=== PATIENT | female | born 1960 | race Caucasian/White ===

== ENCOUNTER → 2019-12-30 06:40 | Outpatient (CLI) | payer MEDICARE, SELFPAY ==
--- NOTE | 2019-12-30 06:40 | CA_ITS ---
APPROVED REPORT Exam: Pharmacologic Technologist: Idalmis Awad Ht: 5 ft 4 in Wt: 161 lbs BSA: 1.78 m2 HR: 57 bpm BP: 127/67 mmHg Indications: CAD Medical History Medications: Omeprazole,,,,, Aspirin,,,,, Metoprolol,,,,, HCTZ,,,,, Albuterol,,,,, CloPIdogrel,,,,, Trazodone,,,,, Stress Test Details Test: LEXISCAN HR Resting HR: 65 bpm Max Heart Rate (APMHR): 161 bpm Max HR Achieved: 101 bpm Target HR (85% APMHR): 136 bpm % of APMHR: 62 Recovery HR: 86 bpm BP Resting BP: 127.0/67.0 mmHg Max BP: 127.0/67.0 mmHg Recovery BP: 121.0/66.0 mmHg ECG Clinical Exercise duration: 04:00 min Highest Stage Achieved: Stress ECG Conclusion Resting ECG: Sinus rhythm Lexiscan portion completed. Patient complained of shortness of breath during peak infusion. Symptoms: Shortness of Breath during peak infusion, resolved in recovery. No chest pain. Arrhythmias/Ectopy: No ectopy. ST-T Changes: Less than 1.[address] depression. Conclusion: Images to follow. Test Summary REST . . . . . . . Resting REST 03:24 . . 65 . 127/ 67 . . Stage 1 . . . . . . . Myoview Injected Stage 1 01:00 . . 95 . . . . Stage 2 01:00 . . 99 . 120/ 64 . . Stage 3 01:00 . . 97 . 111/ 63 . . Stage 4 01:00 . . 92 . 99/ 60 . Stop exercise at 04:00 RECOVERY 01:00 . . 91 . 94/ 58 . . RECOVERY 02:00 . . 87 . 94/ 58 . . RECOVERY 03:00 . . 89 . 113/ 62 . . RECOVERY 03:32 . . 86 . 121/ 66 . . Electronically signed by : Gallo Dunbar, 12/30/2019 19:07:10
--- NOTE | 2019-12-30 06:40 | NM_ITS ---
APPROVED REPORT Exam: Nuclear Stress Test Indication: Chest pain, SOB, HTN, CAD, Tobacco use, Family history Patient Location: Outpatient Stress Tech: Idalmis Awad NM Tech:Jaylene Barnett, ARRT, RT (R)(N) Ht: 5 ft 4 in Wt: 161 lbs Bra Size: 42C HR: 57 bpm BP: 127/67 mmHg BSA: 1.78 m2 BMI: 27.6 History: Chest pain, SOB, HTN, CAD, Tobacco use, Family history Procedure: Patient received a 0.4 mg of intravenous Lexiscan, resting heart rate 57 bpm, resting blood pressure 127/67 mmHg, with Lexiscan maximum heart rate achived was 99 bpm which is Less than 85 % of the maximum predicted heart rate and blood pressure was 120/64 mmHg. With Lexiscan, patient denied any complaint of chest pain. Electrocardiogram Resting electrocardiogram showed sinus rhythm, nonspecific ST-T changes, with Lexiscan there is less than 1.[address] segment depression noted from the baseline EKG. The EKG portion of the Lexiscan Myoview is nondiagnostic. Cardiac Stress and Resting SPECT Images: Cardiac Stress and Resting SPECT images were obtained using technetium 99m Myoview 30.4 mCi stress and 10.31 mCi at rest. Gated SPECT for analysis of segmental wall motion and calculation of ejection fraction also done. Cardiac stress and resting SPECT images show a mild fixed defect in the anterior wall with normal contractility gated SPECT is likely secondary to soft tissue attenuation, no reversible ischemia seen. Computer derived ejection fraction is over 65% with no regional wall motion abnormality, right ventricle is normal size and contractility. Conclusion: 1. The EKG portion of the Lexiscan Myoview is nondiagnostic. 2. No scintigraphic evidence of reversible ischemia seen, computer derived ejection fraction is over 65% with no regional wall motion abnormality, right ventricle is normal size and contractility. 3. Likely normal Lexiscan Myoview study. Electronically signed by : Gallo Dunbar, 12/30/2019 19:12:34
--- NOTE | 2019-12-30 06:40 | CA_ITS ---
APPROVED REPORT EXAM: Comprehensive 2D, Doppler, and color-flow Echocardiogram Pallet Stone Positioner: Mellisa Strauss RDCS Ht: 5 ft 4 in Wt: 160lbs BSA: 1.78 BP: 115/72 mmHg Indications: CAD CP HTN HLP 2D Dimensions LVOT 1.50 cm (M/F) 1.5-2.5 M-Mode Dimensions RVDd 2.72 cm (0.9-2.6) LVDd 5.05 cm (3.5-5.7) LVDs 3.35 cm (3.5-5.7) IVSd 0.55 cm (0.6-1.1) PWd 0.72 cm (0.6-1.1) EF (Teich) 62.10% FS 33.70% EDV (Teich) 121.00 mL ESV (Teich) 45.80 mL LV Diastology E/A Ratio 1.23 Mitral Valve MV A Velocity 55.00 (40-130 cm/s) Left Ventricle Left atrium is mildly enlarged, left ventricle is normal size, mild concentric left ventricular hypertrophy, visually estimated ejection fraction 55% with no regional wall motion abnormality, grade 1 diastolic dysfunction seen without tissue Doppler evidence of raise left atrial pressure. Right Ventricle Right atrium and right ventricular normal size and contractility. Aortic Valve Aortic valve is minimally thickened and fibrosed, there is no aortic stenosis or aortic insufficiency. Mitral Valve Mitral valve is grossly normal, there is mild mitral regurgitation. Tricuspid Valve Tricuspid valve is grossly normal, there is mild tricuspid regurgitation, tricuspid regurgitation jet velocity is inadequate for calculation of the right ventricular systolic pressure. Pulmonic Valve Pulmonic valve is poorly visualized. Great Vessels Aortic root is normal size. Pericardium No significant pericardial effusion noted. Conclusion 1. Mildly enlarged left atrium, normal left ventricular size, mild concentric left ventricular hypertrophy, visually estimated ejection fraction 55% with no regional wall motion abnormality, grade 1 diastolic dysfunction seen without tissue Doppler evidence of raise left atrial pressure. 2. Mild mitral and tricuspid regurgitation. 3. No significant pericardial effusion noted. Electronically signed by : Gallo Dunbar, 12/30/2019 20:53:15
--- NOTE | 2019-12-30 08:40 | HMH.ITSHM ---
Current Home Medications as stated by this patient Anette Ng or maintenance representative. []TRAZODONE ROSUVASTATIN OMEPRAZOLE METOPROLOL ASA HCTZ CLOPIDOGREL ALBUTEROL
== END ==
PROVIDERS: PCP Nurse Practitioner; Visit Provider Nurse Practitioner Family
DX: E78.2 Mixed hyperlipidemia (principal); I11.9 Hypertensive heart disease without heart failure; I25.10 Atherosclerotic heart disease of native coronary artery without angina pectoris; I73.9 Peripheral vascular disease, unspecified; R06.00 Dyspnea, unspecified; R07.89 Other chest pain; Z72.0 Tobacco use; Z82.49 Family history of ischemic heart disease and other diseases of the circulatory system
CPT/HCPCS: 78452; 93017; 93306; A9502; J2785

== ENCOUNTER 2020-01-06 09:15 | Day surgery (SDC) | payer MEDICARE, SELFPAY ==
[2020-01-06] VITALS (13 sets, daily range): BP systolic 106–179; BP diastolic 63–95; PULSE 57–71; RESP 16–18; TEMP 36.7; O2SAT 88–97; BMI 27.8
[2020-01-06 10:06] LABS: Chloride 104 mmol/L (98-107); Potassium 4.4 mmoL/L (3.5-5.1); Sodium 141 mmol/L (136-145)
[2020-01-06 10:09] LABS: Anion Gap 11.4 mEq/L (5-15); Blood Urea Nitrogen 27 mg/dl (7-17); Calcium 9.2 mg/dl (8.4-10.2); Carbon Dioxide 30 mmol/L (22.0-30.0); Creatinine Clearance Estimated 78 mL/min (50-200); Estimated Glomerular Filt Rate 64 ml/min (>60); GFR (African American) 78 ML/MIN (>60); Glucose 107 mg/dl (74-100)
[2020-01-06 10:11] LABS: Red Blood Count 5.12 M/mm3 (4.20-5.40); White Blood Count 5.2 K/mm3 (4.8-10.8)
[2020-01-06 10:12] LABS: Basophils # 0.1 K/mm3 (0-0.2); Basophils % 1.9 % (0.1-2.0); Eosinophils # 0.1 K/mm3 (0.0-0.4); Eosinophils % 1.8 % (0.1-12.0); Hematocrit 48.8 % (37.0-47.0); Hemoglobin 16.1 g/dL (12.2-16.2); Lymphocytes # 1.8 K/mm3 (0.7-4.5); Lymphocytes % 34.3 % (10-50); Mean Corpuscular Hemoglobin 31.5 pg (27.0-31.2); Mean Corpuscular Volume 95.4 fl (81-99); Mean Platelet Volume 7.4 fl (7.4-10.4); Monocytes # 0.6 K/mm3 (0.1-1.0); Monocytes % 11.5 % (1.7-9.3); Neutrophils # 2.6 K/mm3 (1.8-7.8); Neutrophils % 50.5 % (37.0-80.0); Platelet Count 187 K/mm3 (142-424); Red Cell Distribution Width 12.7 % (11.5-17.5)
[2020-01-06 10:31] LABS: Coronavirus 19 IgG Antibody Positive (Negative); Coronavirus 19 IgM Antibody Negative (Negative)
--- NOTE | 2020-01-06 11:00 | IR_ITS ---
APPROVED REPORT Patient Location: Outpatient PROCEDURES Left heart catheterization Left ventriculogram Selective coronary angiogram INDICATION Abnormal Myoview, Known coronary artery disease with stents to the proximal LAD, Angina pectoris Informed consent was obtained prior to the procedure. COMPLICATIONS none Estimated Blood Loss: less than 10 mls TECHNIQUE One percent lidocaine used to anesthetize the right anterior aspect of the wrist. The right radial artery was accessed via the Seldinger technique. A 6 Belarusian sheath was placed in the right radial artery. 2.5 mg of verapamil, 800 mcg of nitroglycerin, 1mg Lidocaine and 5000 U Heparin were given through the arterial sheath. The trap catheter was also used to perform left heart catheterization, left ventriculogram and selective coronary angiogram. At the end of the procedure the sheath was removed good hemostasis was achieved using Traclet band, patient was transferred to the postop holding area in stable condition. ANGIOGRAPHIC RESULTS The left main artery Normal The left anterior descending artery Has a stent in the proximal segment which is widely patent with mild 20 to 30% concentric in-stent restenosis. A small first diagonal artery is jailed. This diagonal artery is 1 mm in diameter and has an ostial 80% stenosis The circumflex artery Nondominant with mild proximal and mid vessel 20% stenoses The right coronary artery Is a dominant vessel has 20 to 30% stenoses throughout its proximal mid and distal course The EDWARDS ventriculogram reveals Normal 65% The left ventricular end-diastolic pressure 10 mmHg IMPRESSION Coronary disease as described above Jailed first diagonal artery which is too small for percutaneous intervention and very unlikely to be producing the angina Normal ejection fraction Normal left ventricular end-diastolic pressure PLAN 1. Medical management Electronically signed by : Lizandro yAala, 01/06/2020 11:39:39
== END 2020-01-06 14:42 | disposition home or self-care (01) ==
LOC: CATHLAB 09:17
PROVIDERS: PCP Nurse Practitioner; Visit Provider Internal Medicine
DX: I25.118 Atherosclerotic heart disease of native coronary artery with other forms of angina pectoris (principal); I10 Essential (primary) hypertension; Z95.5 Presence of coronary angioplasty implant and graft; Z72.0 Tobacco use; E78.5 Hyperlipidemia, unspecified; J44.9 Chronic obstructive pulmonary disease, unspecified; Z79.02 Long term (current) use of antithrombotics/antiplatelets; Z79.82 Long term (current) use of aspirin
CPT/HCPCS: 80048; 85025; 86328; 93458; 99152; C1725; C1769; J1644; Q9967

== ENCOUNTER 2021-06-24 07:15 | Outpatient (CLI) | payer MEDICARE, SELFPAY ==
--- NOTE | 2021-06-24 | CA_ITS ---
APPROVED REPORT Exam: Pharmacologic Technologist: Nancy Rojo, Ht: 5 ft 4 in Wt: 218 lbs BSA: 2.03 m2 HR: 70 bpm BP: 101/67 mmHg Rhythm: NSR, PVCs, NS ST abns inferiorly Medical History Medical History: HTN Medications: Omeprazole,,,,, Metoprolol,,,,, Asa,,,,, Trazadone,,,,, HCTZ,,,,, Crestor,,,,, Albuterol,,,,, Plavix,,,,, Cardiac Risk Factors: HTN Stress Test Details Test: LEXISCAN HR Resting HR: 73 bpm Max Heart Rate (APMHR): 160.237662 bpm Max HR Achieved: 102 bpm Target HR (85% APMHR): 136.160425 bpm % of APMHR: 63.75 Recovery HR: 88 bpm BP Resting BP: 101/67 mmHg Max BP: 125/65 mmHg Recovery BP: 123.0/64.0 mmHg ECG Resting ECG: NSR, PVCs, NS ST abns inferiorly Clinical Exercise duration: 04:01 min Highest Stage Achieved: Stress ECG Conclusion During lexiscan pt experinced SOA, mild nausea, ZACARIAS. No CP noted. Occasional PVC. Compared to baseline there are no significant changes. Non diagnostic lexiscan stress. Myoview images reported separately. Electronically signed by : Gallo Dunbar MD 06/25/2021 10:15:38
--- NOTE | 2021-06-24 07:16 | CA_ITS ---
APPROVED REPORT EXAM: Comprehensive 2D, Doppler, and color-flow Echocardiogram Chairman: EMELINA Wilson, RVS Ht: 5 ft 2 in Wt: 218lbs BSA: 1.98 BP: 115/72 mmHg Indications: CAD-stents,Smoker, Edema,SOB,SALVADOR,Fatigue, Syncope,Obesity,Abn EKG Echo Enhancing Agent Comments: TDS: Poor acoustics throughout exam. 2D Dimensions IVSd 1.15 cm LVEF (Visual) 86.40 % PWd 0.90 cm LA Volume 34.10 mL LVDd 3.89 cm LA Volume Index 17.20 mL/m2 (M/F) 16-34 LVDs 1.74 cm Aortic Root 2.47 cm Left Atrium 2.44 cm LVOT 1.96 cm (M/F) 1.5-2.5 M-Mode Dimensions LA Diam 2.91 cm (1.9-4.0) Ao Diam 2.66 cm (2.0-3.7) EPSs 0.81 cm TAPSE 2.26 (<1.7) LV Diastology E Decel Time 227.00 (160-240 msec) E/A Ratio 1.46 MED E' 6.20 (< 7 cm/sec) MED A' 11.40 cm/s E'/MED E' Ratio 13.55 (>14) LAT E' 8.90 (<10 cm/sec) LAT A' 10.50 cm/s E/LAT E' Ratio 9.44 (>14) Aortic Valve LVOT Max 116.00 (70-110 cm/s) LVOT VTI 23.82 cm AoV Peak Asher. 154.00 (50-130 cm/s) AO Peak GR. 9.50 mmHg AO Mean GR. 5.60 (<5 mmHg) AO VTI 36.67 (18-25 cm) KEV (VTI) 1.96 (2.5-4.5 cm2) Mitral Valve MV A Velocity 58.00 (40-130 cm/s) E/A Ratio 1.46 MV Decel. Time 227.00 (160-240 ms) MV Mean Gr. 1.50 (<2mmHg) MV PHT 67.00 ms Pulmonary Valve PV Peak Velocity 83.00 (50-150 cm/s) Tricuspid Valve TR P. Velocity 192.00 cm/s RAP Estimate 10.00 mmHg RVSP 24.80 mmHg Left Ventricle Left atrium normal size, left ventricle is normal size, there is no concentric left ventricular hypertrophy, visually estimated ejection fraction 55% with no regional wall motion abnormality, diastolic parameters are within normal range. Right Ventricle Right atrium and right ventricle are normal size and contractility. Aortic Valve Aortic valve is minimally thickened and fibrosed, there is no aortic stenosis or aortic insufficiency. Mitral Valve Mitral valve grossly normal, there is trace mitral regurgitation. Tricuspid Valve Tricuspid valve is grossly normal, there is trace tricuspid regurgitation. Tricuspid regurgitation jet velocity is inadequate for calculation of the right ventricular systolic pressure. Pulmonic Valve Pulmonic valve is poorly visualized. Great Vessels Aortic root is normal size. Inferior vena cava is poorly visualized. Pericardium No significant pericardial effusion noted. Conclusion 1. Normal left ventricular size, preserved left ventricular systolic function, visually estimated ejection fraction 55% with no regional wall motion abnormality, diastolic parameters are within normal range. 2. Trace mitral and tricuspid regurgitation. 3. No significant pericardial effusion. 5. Inferior vena cava is poorly visualized. Electronically signed by : Gallo Dunbar MD 06/25/2021 13:02:35
--- NOTE | 2021-06-24 07:34 | NM_ITS ---
APPROVED REPORT Exam: Nuclear Stress Test Indication: chest pain..short of breath Patient Location: Outpatient Stress Tech: Nancy MCKEON Tech:JUAN Pal RT(R)(N) Ht: 5 ft 4 in Wt: 195 lbs Bra Size: 3x HR: 70 bpm BP: 101/67 mmHg BSA: 1.94 m2 BMI: 33.4 History: chest pain..short of breath Procedure: Patient received a 0.4 mg of intravenous Lexiscan, resting heart rate 70 bpm, resting blood pressure 101/67 mmHg, with Lexiscan maximum heart rate achived was 102 bpm which is Less than 85 % of the maximum predicted heart rate and blood pressure was 109/62 mmHg. With Lexiscan, patient denied any complaint of chest pain. Electrocardiogram Resting electrocardiogram shows sinus rhythm, with Lexiscan there is less than 1.[address] segment depression noted from the baseline EKG. The EKG portion of the Lexiscan is nondiagnostic. Cardiac Stress and Resting SPECT Images: Cardiac Stress and Resting SPECT images were obtained using technetium 99m Myoview 32.7 mCi stress and 10.40 mCi at rest. Gated SPECT for analysis of segmental wall motion and calculation of the ejection fraction also done. Prone images were also obtained. Cardiac stress and resting SPECT images show a mild reversible defect in the anterior wall however the perfusion at the apex being normal is likely secondary to soft tissue attenuation, this study is technically limited due to patient's body habitus however there is transient ischemic dilatation of the left ventricle seen raising the concerns for presence of underlying ischemic heart disease or balanced ischemia. Computer derived ejection fraction is 63% with no regional wall motion abnormality, right ventricle is mildly enlarged with normal contractility. Conclusion: 1. The EKG portion of the Lexiscan is nondiagnostic. 2. Scintigraphic evidence of mild anterior wall reversibility likely secondary to soft tissue attenuation however there is transient ischemic dilatation of the left ventricle seen raising the concerns of presence of underlying ischemic heart disease and balanced ischemia. Compared to ejection fraction is 63% with no regional wall motion abnormality, right ventricle is mildly enlarged with normal contractility. 3. Likely abnormal Lexiscan Myoview study. Electronically signed by : Gallo Dunbar MD 06/25/2021 10:18:49
--- NOTE | 2021-06-24 10:20 | US_ITS ---
FINAL REPORT CLINICAL HISTORY: CLAUDICATION/REST PAIN BILATERAL,SMOKER,HTN FINDINGS: ANKLE-BRACHIAL PRESSURE INDICES Pressure indices are as follows: RIGHT LOWER EXTREMITY: Ankle-brachial pressure index: 0.99 Comments: Normal LEFT LOWER EXTREMITY: Ankle-brachial pressure index: 1.02 Comments: Normal CONCLUSION: No evidence of significant obstructive peripheral vascular disease of the lower extremities Reviewed, Interpreted and Dictated by Pilo Barnard III, MD Transcribed by Emmie Draper Authenticated by Pilo Barnard III, MD on 06/24/2021 11:18:33 AM [facility]
[2021-06-24 10:52] VITALS: BMI 36.3
[2021-06-24 11:15] VITALS: BP 147/97; PULSE 90; RESP 20; O2SAT 94; BMI 37.4
[2021-06-24 12:08] VITALS: BP 144/84; PULSE 75; RESP 20; O2SAT 95
[2021-06-24 12:16] VITALS: BP 145/86; PULSE 80; O2SAT 95
--- NOTE | 2021-06-24 15:04 | HMH.LOOP ---
[facility] Loop Recorder Date: 06/24/21 Time: 12:05 Procedure Performed:: Implantation of loop recorder Indication:: Syncope Technique:: Patient was brought to the cardiac Gravel Machine Operator. After informed consent obtained, 1% lidocaine with epinephrine was used to anesthetize the site along the left anterior aspect of the chest near the sternal border. Using the preformed scalpel, an incision was made and using the supplied preloaded apparatus, the loop recorder was placed subcutaneously without difficulty. Following the deployment of the loop recorder interrogation of the device was performed to ensure appropriate voltage was being detected. Once this was verified, Steri-Strips were placed over the incision and the patient was prepped to discharge home. Patient tolerated the procedure well with minimal discomfort. Impression:: Successful implantation of loop recorder Serial Number:: [employer] [id number] Serial #[id number] Plan:: Routine postop care This op note was dictated by Zoë Centeno APRN, MATERIAL ASSISTANT?C for Dr. Lucy MD who was the implanting provider.
== END 2021-06-24 12:36 | disposition home or self-care (01) ==
PROVIDERS: Internal Medicine; PCP Nurse Practitioner; Visit Provider Nurse Practitioner Family
DX: E78.2 Mixed hyperlipidemia (principal); I11.9 Hypertensive heart disease without heart failure; I25.118 Atherosclerotic heart disease of native coronary artery with other forms of angina pectoris; I73.9 Peripheral vascular disease, unspecified; R06.00 Dyspnea, unspecified; R55 Syncope and collapse; Z72.0 Tobacco use
CPT/HCPCS: 78452; 93017; 93306; 93923; A9502; J2785

== ENCOUNTER 2021-07-07 07:24 | Day surgery (SDC) | payer MEDICARE, SELFPAY ==
[2021-07-07] VITALS (13 sets, daily range): BP systolic 118–158; BP diastolic 51–84; PULSE 62–89; RESP 16–20; TEMP 36.1; O2SAT 91–100; BMI 36.6
--- NOTE | 2021-07-07 07:05 | IR_ITS ---
APPROVED REPORT Patient Location: Outpatient Full Time Staff Interpreter: JUAN Mauricio RT (R) PROCEDURES Left heart catheterization Left ventriculogram Selective coronary angiogram INDICATION Abnormal Myoview, Angina pectoris Informed consent was obtained prior to the procedure. COMPLICATIONS None Estimated Blood Loss: Less than 10 mls TECHNIQUE One percent lidocaine used to anesthetize the right anterior aspect of the wrist. The right radial artery was accessed via the Seldinger technique. A 6 Amharic sheath was placed in the right radial artery. 2.5 mg of verapamil, 800 mcg of nitroglycerin, 1mg Lidocaine and 5000 U Heparin were given through the arterial sheath. The papa catheter was also used to perform left heart catheterization, left ventriculogram and selective coronary angiogram. At the end of the procedure the sheath was removed good hemostasis was achieved using Traclet band, patient was transferred to the postop holding area in stable condition. ANGIOGRAPHIC RESULTS The left main artery Normal The left anterior descending artery Has a stent in the proximal segment which is widely patent free of in-stent restenosis with excellent proximal distal transitioning. The remaining LAD has mild 10% luminal irregularities The circumflex artery Is a nondominant yet still large vessel with a proximal eccentric 20 to 30% stenosis with mild 10% stenosis and a first obtuse marginal artery The right coronary artery Is a dominant vessel and has an ostial 40% stenosis followed by proximal 10 to 20% stenosis with a mid vessel 30% stenosis. The EDWARDS ventriculogram reveals Hyperdynamic at 75% The left ventricular end-diastolic pressure Severely elevated at 30 mmHg IMPRESSION Coronary artery disease as described above Moderate ostial dominant right coronary disease which is unlikely to be producing patient's symptoms Etiology of symptoms most likely stems from hypertensive heart disease with decompensated diastolic dysfunction Hyperdynamic ventricle PLAN 1. Ongoing risk factor modification and treatment for ischemic heart disease 2. Treatment of diastolic dysfunction. Hydrochlorothiazide will be discontinued and Lasix 40 mg daily plus spironolactone 100 mg daily will be given to decrease LVEDP 3. Recommend sleep study 4. Patient may benefit from verapamil to decrease contractility and improve associated symptoms Electronically signed by : Lizandro Ayala MD 07/07/2021 09:51:48
[2021-07-07 07:57] LABS: Basophils # 0.2 K/mm3 (0-0.2); Basophils % 2.6 % (0.1-2.0); Eosinophils # 0.1 K/mm3 (0.0-0.4); Eosinophils % 1.7 % (0.1-12.0); Hematocrit 51.4 % (37.0-47.0); Hemoglobin 16.8 g/dL (12.2-16.2); Lymphocytes # 2.1 K/mm3 (0.7-4.5); Lymphocytes % 34.6 % (10-50); Mean Corpuscular HGB Conc 32.7 g/dL (31.8-35.4); Mean Corpuscular Hemoglobin 30.8 pg (27.0-31.2); Mean Corpuscular Volume 94.1 fl (81-99); Mean Platelet Volume 8.7 fl (7.4-10.4); Monocytes # 0.6 K/mm3 (0.1-1.0); Neutrophils # 3.1 K/mm3 (1.8-7.8); Neutrophils % 51.1 % (37.0-80.0); Platelet Count 251 K/mm3 (142-424); Red Blood Count 5.46 M/mm3 (4.20-5.40); Red Cell Distribution Width 13.8 % (11.5-17.5)
[2021-07-07 08:12] LABS: Anion Gap 10.1 mEq/L (5-15); Blood Urea Nitrogen 17 mg/dl (7-17); Carbon Dioxide 29 mmol/L (22.0-30.0); Chloride 105 mmol/L (98-107); Creatinine Clearance Estimated 91 mL/min (50-200); Estimated Glomerular Filt Rate 57 ml/min (>60); GFR (African American) 68 ML/MIN (>60); Glucose 124 mg/dl (74-100); Potassium 4.1 mmoL/L (3.5-5.1); Sodium 140 mmol/L (136-145)
== END 2021-07-07 12:52 | disposition home or self-care (01) ==
LOC: CATHLAB 07:26
PROVIDERS: PCP Family Medicine; Visit Provider Internal Medicine
DX: E78.2 Mixed hyperlipidemia (principal); I11.9 Hypertensive heart disease without heart failure; I25.118 Atherosclerotic heart disease of native coronary artery with other forms of angina pectoris; I73.9 Peripheral vascular disease, unspecified; R55 Syncope and collapse; R94.39 Abnormal result of other cardiovascular function study; Z82.49 Family history of ischemic heart disease and other diseases of the circulatory system; F17.210 Nicotine dependence, cigarettes, uncomplicated; Z95.5 Presence of coronary angioplasty implant and graft
CPT/HCPCS: 80048; 85025; 93458; 99152; C1725; C1769; J1644; Q9966

== ENCOUNTER → 2021-07-16 10:45 | Outpatient (CLI) | payer MEDICARE, SELFPAY ==
[2021-07-16 11:41] LABS: Anion Gap 12.4 mEq/L (5-15); Blood Urea Nitrogen 22 mg/dl (7-17); Calcium 9.3 mg/dl (8.4-10.2); Carbon Dioxide 31 mmol/L (22.0-30.0); Chloride 100 mmol/L (98-107); Estimated Glomerular Filt Rate 57 ml/min (>60); GFR (African American) 68 ML/MIN (>60); Glucose 106 mg/dl (74-100); Potassium 4.4 mmoL/L (3.5-5.1); Sodium 139 mmol/L (136-145)
== END ==
PROVIDERS: PCP Family Medicine; Visit Provider Physician Assistant
DX: R06.00 Dyspnea, unspecified; R55 Syncope and collapse; I20.8 Other forms of angina pectoris; I11.9 Hypertensive heart disease without heart failure; E78.2 Mixed hyperlipidemia; I73.9 Peripheral vascular disease, unspecified; Z72.0 Tobacco use; Z82.49 Family history of ischemic heart disease and other diseases of the circulatory system
CPT/HCPCS: 36415; 80048

== ENCOUNTER → 2021-11-15 09:01 | Outpatient (CLI) | payer MEDICARE, SELFPAY ==
[2021-11-15 10:28] LABS: Anion Gap 11.4 mEq/L (5-15); Blood Urea Nitrogen 22 mg/dl (7-17); Calcium 9.5 mg/dl (8.4-10.2); Carbon Dioxide 30 mmol/L (22.0-30.0); Chloride 105 mmol/L (98-107); Estimated Glomerular Filt Rate 56 ml/min (>60); GFR (African American) 68 ML/MIN (>60); Glucose 97 mg/dl (74-100); Potassium 4.4 mmoL/L (3.5-5.1); Sodium 142 mmol/L (136-145)
== END ==
PROVIDERS: Visit Provider Physician Assistant
DX: E78.2 Mixed hyperlipidemia (principal); I11.9 Hypertensive heart disease without heart failure; I25.118 Atherosclerotic heart disease of native coronary artery with other forms of angina pectoris; R06.00 Dyspnea, unspecified
CPT/HCPCS: 36415; 80048

== ENCOUNTER → 2023-01-26 11:40 | Outpatient (CLI) | payer MEDICARE, SELFPAY ==
--- NOTE | 2023-01-26 11:44 | CA_ITS ---
FINAL REPORT TECHNIQUE: Multiple transverse and longitudinal images were performed of right the femoral-popliteal deep venous system with augmentation and compression maneuvers. CLINICAL HISTORY: Right lower extremity edema FINDINGS: Right lower extremity duplex ultrasound demonstrates normal flow in the deep venous system. There is no abnormal echogenicity to suggest thrombus. There is normal compression and augmentation. IMPRESSION: No evidence of right DVT. Reviewed, Interpreted and Dictated by Pilo Barnard III, MD Transcribed by Margarita Urena Authenticated and [facility]
== END ==
LOC: RT 11:42
PROVIDERS: PCP Family Medicine; Visit Provider Physician Assistant
DX: M79.89 Other specified soft tissue disorders (principal)
CPT/HCPCS: 93971

== ENCOUNTER 2024-07-05 12:44 | Outpatient (CLI) | payer MEDICARE, SELFPAY ==
--- NOTE | 2024-07-05 12:49 | CA_ITS ---
APPROVED REPORT EXAM: Comprehensive 2D, Doppler, and color-flow Echocardiogram Nursing Clinical Director: Mellisa Strauss RDCS Ht: 5 ft 4 in Wt: 211lbs BSA: 2.00 BP: 135/78 mmHg Indications: SOA,COPD,SMOKER,EDEMA,HTN,HLP,CAD,PAD, LOOP RECORDER TDS SECONDARY TO BODY HABITUS M-Mode Dimensions RVDd 2.12 cm (0.9-2.6) LA Diam 2.94 cm (1.9-4.0) LVDd 4.12 cm (3.5-5.7) LVDs 2.59 cm (3.5-5.7) IVSd 0.89 cm (0.6-1.1) PWd 1.19 cm (0.6-1.1) EF (Teich) 67.50% FS 37.10% EDV (Teich) 75.10 mL ESV (Teich) 24.40 mL LV Diastology E Decel Time 220 (160-240 msec) E/A Ratio 1.2 Aortic Valve KEV Index 1.08 cm2/m2 AoV Peak Asher. 170.0 (50-130 cm/s) AO Peak GR. 11.60 mmHg AO Mean GR. 5.70 (<5 mmHg) AO VTI 31.6 (18-25 cm) KEV (VTI) 2.21 (2.5-4.5 cm2) Mitral Valve MV E Max Asher. 75.0 (40-130 cm/s) MV A Velocity 63.0 (40-130 cm/s) E/A Ratio 1.20 MV PHT 64.0 ms Left Ventricle The left ventricle is normal size. The left ventricular systolic function is normal. The left ventricular ejection fraction is within the normal range. There is increased LV wall thickness. There is normal LV segmental wall motion. The left ventricular diastolic function is normal. LVEF is 55%. Right Ventricle The right ventricle is normal size. The right ventricular systolic function is normal. Atria The left atrium size is normal. The right atrium size is normal. There is no Doppler evidence of interatrial shunt. Aortic Valve The aortic valve is mildly thickened. There is no aortic valvular stenosis. No aortic regurgitation is present. Mitral Valve The mitral valve is normal in structure. No evidence of mitral valve stenosis. Trace mitral regurgitation. Tricuspid Valve Tricuspid valve is grossly normal in structure and function. Trace tricuspid regurgitation. There is insufficient TR jet to estimate RVSP. Pulmonic Valve The pulmonary valve is normal in structure. Trace pulmonic regurgitation. Great Vessels The aortic root is normal in size. IVC is normal in size and collapses >50% with inspiration. Pericardium There is no pericardial effusion. Other Information Study Quality: Fair Conclusion Normal biventricular systolic function. No significant valvular stenosis or regurgitation. Electronically signed by : Cesia Quijano MD 07/10/2024 13:27:43
== END 2024-07-05 23:59 | disposition home or self-care (01) ==
LOC: RT 12:47
PROVIDERS: PCP Family Medicine; Visit Provider Nurse Practitioner Family
DX: I11.9 Hypertensive heart disease without heart failure (principal); I25.10 Atherosclerotic heart disease of native coronary artery without angina pectoris; R55 Syncope and collapse; R06.02 Shortness of breath
CPT/HCPCS: 93306

== ENCOUNTER 2024-12-12 12:16 | Outpatient (CLI) | payer MEDICARE, SELFPAY ==
--- OUTSIDE RECORDS SUMMARY | 2024-12-12 12:18 | XMS_ITS | Clinical Summary ---
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 Name Role Phone Unavailable Primary Care Provider Unavailabl e Allergies Active Allergy Reactions Criticality Noted Date Comments Meclizine Hives 05/09/2008 Medications predniSONE (DELTASONE) 10 mg Oral TabletIndications: Primary osteoarthritis of right knee 1 QID X 2 DAYS, 1TID X 2 DAYS, 1 BID X 2 DAYS , 1 QD X 4DAYS UNTIL COMPLETED 22 Tablet 08/09/19 24 Active albuterol (PROVENTIL) 2.5 mg /3 mL (0.083 %) Inhl Solution for Nebulization INHALE ONE (1) VIAL VIA NEBULIZER EVERY FOUR (4) HOURS NEEDED Active clopidogreL (PLAVIX) 75 mg Oral Tablet TAKE ONE (1) TABLET BY MOUTH EVERY DAY 02/04/20 23 Active losartan (COZAAR) 50 mg Oral Tablet TAKE ONE (1) TABLET BY MOUTH EVERY DAY Active fUROsemide (LASIX) 40 mg Oral Tablet Take 1 tablet every day by oral route as needed for 90 days. Active meloxicam (MOBIC) 7.5 mg Oral Tablet TAKE ONE (1) TABLET (7.5 MG) BY ORAL ROUTE TWICE DAILY FOR 30 DAYS Active metoprolol succinate (TOPROL-XL) 25 mg Oral Tablet Sustained Release 24 hr TAKE (1/2) TABLET BY MOUTH EVERY DAY Active pantoprazole (PROTONIX) 40 mg Oral Tablet, Delayed Release (E.C.) Takes as needed 02/04/20 23 Active PARoxetine (PAXIL) 10 mg Oral Tablet TAKE ONE (1) TABLET BY MOUTH EVERY DAY 02/04/20 Active potassium chloride 20 mEq Oral Tablet Sustained Release Take 1 tablet every day by oral route for 30 days. 04/18/19 Active rosuvastatin (CRESTOR) 5 mg Oral Tablet TAKE ONE (1) TABLET BY MOUTH EVERY DAY 02/04/20 Active spironolactone (ALDACTONE) 100 mg Oral Tablet As needed 02/04/20 Active traZODone (DESYREL) 150 mg Oral Tablet TAKE ONE (1) TABLET BY MOUTH EVERY DAY NEEDED 02/04/20 Active diclofenac (VOLTAREN) 1 % Top GelIndications:Pat ellofemoral arthritis,Degenera tive tear of medial meniscus of right knee Apply 4 g topically 4 times daily as needed. 5 Each 03/29/20 Active Additional Information Patient not taking.Reason: Pt electing to not take the medication, Reported on 04/21/2023 etodolac (LODINE) 500 mg Oral TabletIndications: Patellofemoral arthritis,Degenera tive tear of medial meniscus of right knee 1 tablet by mouth 2 times a day 60 Tablet 2 03/29/20 23 Active promethazine (PHENERGAN) 25 mg Oral Tablet Take 1 Tablet by mouth every 6 hours as needed for Nausea for up to 20 doses. 20 Tablet 04/28/19 24 Active oxyCODONE (ROXICODONE) 5 mg Oral Tablet Take 1 Tablet by mouth every 4 hours as needed for Major Surgery/Trauma (G89.18) for up to 30 doses. 30 Tablet 04/28/19 24 Active docusate sodium (COLACE) 100 mg Oral Capsule Take one capsule three times a day while on pain meds 90 Capsule 04/28/19 24 Active meloxicam (MOBIC) 15 mg Oral TabletIndications: Acute pain of right knee,Primary osteoarthritis of right knee Take 1 Tablet by mouth daily. 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 KNEE ARTHROSCOPY 04/28/2023 Knee/Right .; Surgeon: Carlos Holbrook MD; Location: [facility]; Service: Orthopedics Medical devices from this surgery are in the Medical Devices section. Medical History Medical History Date Comments Hypertension Hyperlipidemia Arthritis Depression COPD (chronic obstructive pulmonary disease) (HC C) SALVADOR (dyspnea on exertion) CAD (coronary artery disease) 2014 de la o s x3 stents Heartburn Family History Medical History Relation Name Comments Heart Disease Brother Anesth Problems Neg Hx Relation Name Status Comments Brother Alive Father Mother Alive Social History Tobacco Use Types Packs/Day Years Used Date Smoking Tobacco: Every Day Cigarettes 1 49.7 Started: 1975 Smokeless Tobacco: Never Comments:Has tried to quit w ith nicotine patches/ didn't tolerate Alcohol Use Standard Drinks/Week Comments Never 0 (1 standard drink = 0.6 oz pur e alcohol) Comments Unknown Sex and Gender Information Value Date Recorded Sex Assigned at Not on file Legal Sex Female 12:42 AM EDT Gender Identity Not on file Sexual Orientation Not on file Obstetrics History Last Filed Vital Signs Vital Sign Reading Time Taken Comments Blood Pressure 134/74 04/28/2023 11:53 AM EST Pulse 72 04/28/2023 11:53 AM EST Temperature 36.2 C (97.2 F) 04/28/2023 11:53 AM EST Respiratory Rate 12 04/28/2023 11:53 AM EST Oxygen Saturation 93% 04/28/2023 11:53 AM EST Inhaled Oxygen Concentration - - Weight 98.9 kg (218 lb 0.3 oz) 04/21/2023 10:23 AM EST Height 160 cm (5' 3 ) 04/21/2023 10:23 AM EST Body Mass Index 38.62 04/21/2023 10:23 AM EST Plan of Treatment Health Maintenance Due Date Last Done Comments Annual Wellness Exam 08/02/1963 Hepatitis C Screening 1978 Pneumococcal Vaccine 50+ (1 of 2 - PCV) 08/02/1979 Cervical Cancer Screening 1981 Pap Smear 1981 HPV/Pap Cotest 1990 Cologuard 2005 Colon Cancer Screening 2005 Colonoscopy 2005 FIT 2005 Sigmoidoscopy 2005 Virtual Colonography 2005 Low Dose Lung Cancer Screening 2010 Zoster (1 of 2) 2010 COVID-19 Vaccine (1 - 2023-2 5 season) 2024 Influenza Vaccine (#1) 2024 Breast Cancer Screening 08/22/2025 08/23/19, 03/17/2021 DTaP/TDaP/Td (2 - Td or Tdap) 10/31/2026, 06/20/1996 Hepatitis B Vaccine Aged Out No longe r eligible based on patient's age to complete this topic Meningococcal B Vaccine Aged Out No l onger eligible based on patient's age to complete this topic Medical Devices Implanted Type 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 Device Identifier Shelf Expiration Date Model / Serial / Lot Kt Bone Cemnt [id number] [employer] Strl - [id number] Implanted:Qty: 1 on 04/28/2023 by Carlos Holbrook MD at [facility] Right: Knee NITO:NITO 10/10/2025 [id number] / / [id number] Procedures Procedure Name Priority Date/Time Associated Diagnosis Comments MM MAMMO DIGITAL HORACE SCREEN BILAT Routine 08/23/2023 11:27 AM EDT Encounter for screening mammogram for malignant neoplasm of breast from Last 3 Months or Most Recently Relevant to Health Maintenance Results * MM MAMMO DIGITAL HORACE SCREEN BILAT (08/23/2023 11:27 AM EDT) Anatomical Region Laterality Modality Breast Bilateral Mammography 08/24/2023 8:28 AM EDT Impressions 08/24/2023 8:28 AM EDT Negative ([id number]) ~ RECOMMENDATION: Routine screening mammogram in 1 year. ~ DISCLAIMER * Any patient with a palpable abnormality, unexplained by breast imaging, should be managed on clinical basis by the attending physician. * Breast imaging has a false negative rate of 15%. * The patient was notified by mail of the results of this examination. *The patient's information was entered into a reminder system with a target due date for the next mammogram, in accordance with the [employer] and the Society of Breast Imaging recommendations. Narrative 08/24/2023 8:28 AM EDT Procedure:MM MAMMO DIGITAL HORACE SCREEN BILAT ~ Reason for exam: screening, asymptomatic. Z12.31-Encounter for screening mammogram for malignant neoplasm of [id number] ~ MM MAMMO DIGITAL HORACE SCREEN BILAT Bilateral CC and MLO view(s) were taken. There are scattered fibroglandular densities. Prior study comparison: Compared with prior studies the most recent being 03/17/21 No mammographic evidence of malignancy. ~ Procedure Note Carina Lopez MD - 08/24/2023 Procedure:MM MAMMO DIGITAL HORACE SCREEN BILAT ~ Reason for exam: screening, asymptomatic. Z12.31-Encounter for screening mammogram for malignant neoplasm of [id number] ~ MM MAMMO DIGITAL HORACE SCREEN BILAT Bilateral CC and MLO view(s) were taken. There are scattered fibroglandular densities. Prior study comparison: Compared with prior studies the most recentbeing 03/17/21 No mammographic evidence of malignancy. ~ IMPRESSION: Negative ([id number]) ~ RECOMMENDATION: Routine screening mammogram in 1 year. ~ DISCLAIMER * Any patient with a palpable abnormality, unexplained by breast imaging, should be managed on clinical basis by the attending physician. * Breast imaging has a false negative rate of 15%. * The patient was notified by mail of the results of this examination. *The patient's information was entered into a reminder system with atarget due date for the next mammogram, in accordance with the [employer] and the Society of Breast Imaging recommendations. 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 Plan / Payer (Ef fective 2015-Present) Name:Anette Gomes Relation to Subscriber:Employee Name:[employer] Date of :1966 (Home) Address: ATTN: ZAIRA Berry [address] [place] [address] Payer ID:Not on file Group ID:Not on file Type:Not on file Address: ATTN: ZAIRA Berry [address] [address] [place] [address] ANTH MEDICARE ADVANTAGE MR * Guarantor: [employer] Account Type Relation to Patient Date of Phone Billing Address [employer] 1966 ATTN: ZAIRA [place] [address] [place] [address] 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
== END 2024-12-12 23:59 | disposition home or self-care (01) ==
LOC: RT 12:17
PROVIDERS: PCP Nurse Practitioner Family; Visit Provider Nurse Practitioner Family
DX: J44.89 Other specified chronic obstructive pulmonary disease (principal); F17.210 Nicotine dependence, cigarettes, uncomplicated; R94.2 Abnormal results of pulmonary function studies
CPT/HCPCS: 94060; 94726; 94729

== ENCOUNTER 2025-02-14 09:48 | Outpatient (CLI) | payer MEDICARE, SELFPAY ==
--- OUTSIDE RECORDS SUMMARY | 2025-02-14 09:52 | XMS_ITS | Data Portability ---
Author Organization [place] - [facility] Address [address] [place] [id number] Assessment No assessment recorded. Plan of Treatment Reminders Order Date Submit Date Provider Last Modified By Organization Details Last Modified Time Details Appointments None recorded. Lab None recorded. Referral None recorded. Procedures None recorded. Surgeries None recorded. Imaging XR, knee 2023 024 [email or web address] [facility], [address] [place] [address] [place], [address], 4 14:42:25 XR, knee 2023 024 [email or web address] [facility], [address] [place] [address] [place], [address], 4 15:47:47 CT, knee, w/o contrast - RIGHT KNEE- JOE TOTAL KNEE SCHEDULED FOR 12/25/232023 024 [email or web address] Not available 4 07:15:28 Medication Orders None recorded. Patient TargetsNo targets recorded. Patient InstructionsNo instructions recorded. Reason for Referral None Reported. Results Created Date Observation Date Name Description Value Unit Range Abnormal Flag Note LastModifiedBy Organization Detail LastModifiedTime 11/09/1911/09/2023 GLYCO HEMOG LOBIN (HGB A1C) note See Note Order ing Provi prieto: Krista Aguillon MD Not Available [address] [place], [address], 11/09/2023 16:49:44 11/09/19 24 11/09/2023 GLYCO HEMOG LOBIN (HGB A1C) glycohemoglo bin (HGB A1C) 5.4 % 4.5-6. 2 normal Predi abete s: 5.7 - 6.4 Diabe sharif: >6.4 Glyce max contr ol for adult s with diabe sharif: <7.0 Not Available [address] , [place], [address], 11/09/2023 16:49:44 11/09/19 24 11/09/2023 GLYCO HEMOG LOBIN (HGB A1C) performing lab see note - [facility] R [address] [place] [address] DRIVE [facility] [address] Not Available [address] , [place], [address], 11/09/2023 16:49:44 11/09/19 24 11/09/2023 ELECT ROLYT ES PANEL note See Note Order ing Provi prieto: Krista Aguillon MD Not Available [address] , [place], [address], 11/09/2023 16:49:45 11/09/19 24 11/09/2023 ELECT ROLYT ES PANEL sodium 141 mmol/ L 136-14 5 normal Not Available [address] , [place], [address], 11/09/2023 16:49:45 11/09/19 24 11/09/2023 ELECT ROLYT ES PANEL potassium 4.2 mmol/ L 3.5-5. 1 normal Not Available [address] [place], [place], [address], 11/09/2023 16:49:45 11/09/19 24 11/09/2023 ELECT ROLYT ES PANEL chloride 103 mmol/ L 98-107 normal Not Available [address] [place], [address], 11/09/2023 16:49:45 11/09/19 24 11/09/2023 ELECT ROLYT ES PANEL carbon dioxide 27 mmol/ L 24-33 normal Not Available [address] [place], [place], [address], 11/09/2023 16:49:45 11/09/19 24 11/09/2023 ELECT ROLYT ES PANEL anion gap 15.2 mmol/ L 10-20 normal Not Available [address] [place], [place], [address], 11/09/2023 16:49:45 11/09/19 24 11/09/2023 ELECT ROLYT ES PANEL performing lab see note [facility] R [address] [facility] [address] Not Available [address] [place], [place], [address], 11/09/2023 16:49:45 11/09/19 24 11/09/2023 BLOOD UREA NITRO GEN note See Note Order ing Provi prieto: Krista Aguillon MD Not Available [address] [place], [place], [address], 11/09/2023 16:49:46 11/09/19 24 11/09/2023 BLOOD UREA NITRO GEN blood urea nitrogen 12 mg/dL 7-18 normal Not Available [address] , [place], [address], 11/09/2023 16:49:46 11/09/19 24 11/09/2023 BLOOD UREA NITRO GEN performing lab see note ML - [facility] R [address] [address] Not Available [address] , [place], [address], 11/09/2023 16:49:46 11/09/19 24 11/09/2023 CREAT ININE W/GFR note See Note Order ing Provi prieto: Krista Aguillon MD Not Available [address] , [place], [address], 11/09/2023 16:49:46 11/09/19 24 11/09/2023 CREAT ININE W/GFR creatinine 0.93 mg/dL 0.55-1 .02 normal Not Available [address], [place], [address], 11/09/2023 16:49:46 11/09/19 24 11/09/2023 CREAT ININE W/GFR GFR (estimated) 69 mL/mi n >60 normal [IM PRANAV NT]: The 2020 CKD-E PI equat ion is now the recom kayden d stand billie. This versi on does not inclu de race, as do the 2008 and 2011 CKD-E PI creat inine and creat inine -cyst atin C equat ions. Plelilian e note that the eGFR now repor deangelo is gener ated by the new 2020 CKD-E PI equat ion, which decre ases the eGFR for black s by up to 10% and incre ases the eGFR for non-b lacks by up to 10% in sunny rison to the old equat ion. To sunny re a legac y eGFR to a curre nt value , a 2008 CKD-E PI calcu lator is easil y searc hable on the inter net. Calcu lated GFR: This calcu lated GFR is advoc ated by the Natio nal Kidne y Found ation to be used as an indic ator of Chron ic Kidne y Disea se (CKD) . 5 Stage s of Chron ic Kidne y Disea se. Stage 1 90 mL/mi n or more Healt hy kidne ys or Kidne y damag e with huseyin l or high GFR detai ls Stage 2 60 to 89 mL/mi n Kidne y damag e and mild decre ase in GFR detai ls Stage 3 30 to 59 mL/mi n Moder ate decre ase in GFR detai ls Stage 4 15 to 29 mL/mi n Sever e decre ase in GFR detai ls Stage 5 Less than 15 mL/mi n On dialy sis or Kidne y failu re Patie nt's clini ivon statu s must be consi dered for the care of your patie nt. Not Available [address] , [place], [address], 11/09/2023 16:49:46 11/09/19 24 11/09/2023 CREAT ININE W/GFR performing lab see note ML - [facility] R [address] [facility] [address] Not Available [address] , [place], [address], 11/09/2023 16:49:46 11/09/19 24 11/09/2023 C-MARIA ISABEL CTIVE PROTE IN note See Note Order ing Provi prieto: Krista Aguillon MD Not Available [address] , [place], [address], 11/09/2023 16:49:47 11/09/19 24 11/09/2023 C-MARIA ISABEL CTIVE PROTE IN C-reactive protein 6.1 mg/L <5.0 high NOT E NEW REFER ENCE RANGE S Not Available [address] [place], [place], [address], 11/09/2023 16:49:47 11/09/19 24 11/09/2023 C-MARIA ISABEL CTIVE PROTE IN performing lab see note ML - [facility] R [address] [facility] [address] Not Available [address] , [place], [address], 11/09/2023 16:49:47 11/09/19 24 11/09/2023 CBC W/O DIFF note See Note Order ing Provi prieto: Krista Aguillon MD Not Available [address] [place], [place], [address], 11/09/2023 16:53:19 11/09/19 24 11/09/2023 CBC W/O DIFF white blood cell 7.7 10e3/ uL 4.5-13 .0 normal Not Available [place] [address], [place], [address], 11/09/2023 16:53:19 11/09/19 24 11/09/2023 CBC W/O DIFF red blood cell 5.31 10e6/ uL 3.80-5 .10 high Not Available [address] [place], [place], [address], 11/09/2023 16:53:19 11/09/19 24 11/09/2023 CBC W/O DIFF hemoglobin 16.3 g/dL 11.5-1 5.3 high Not Available [place] [address], [place], [address], 11/09/2023 16:53:19 11/09/19 24 11/09/2023 CBC W/O DIFF hematocrit 48.7 % 34.0-4 6.0 high Not Available [place] [address], [place], [address], 11/09/2023 16:53:19 11/09/19 24 11/09/2023 CBC W/O DIFF mean cell volume 92 fL 78.0-9 8.0 normal Not Available [place] [address], [place], [address], 11/09/2023 16:53:19 11/09/19 24 11/09/2023 CBC W/O DIFF mean cell HGB 30.7 pg 25.0-3 5.0 normal Not Available [address] [place], [place], [address], 11/09/2023 16:53:19 11/09/19 24 11/09/2023 CBC W/O DIFF mean cell HGB concentratio n 33.5 g/dL 31.0-3 6.0 normal Not Available [address] , [place], [address], 11/09/2023 16:53:19 11/09/19 24 11/09/2023 CBC W/O DIFF red cell distribution width 13.2 % 11.0-1 5.0 normal Not Available [address] [place], [place], [address], 11/09/2023 16:53:19 11/09/19 24 11/09/2023 CBC W/O DIFF platelet count 246 10e3/ uL 150-40 0 normal Not Available [address] [place], [place], [address], 11/09/2023 16:53:19 11/09/19 24 11/09/2023 CBC W/O DIFF performing lab see note - [facility] R [address] [facility] [address] [address] [facility] [address] Not Available [address] , [place], [address], 11/09/2023 16:53:19 11/09/19 24 11/09/2023 SEDIM ENTAT ION RATE note See Note Order ing Provi prieto: Krista Aguillon MD Not Available [address] [place], [place], [address], 11/09/2023 17:12:38 11/09/19 24 11/09/2023 SEDIM ENTAT ION RATE sedimentatio n rate 1 mm/HR 0-30 normal Not Available [address] , [place], [address], 11/09/2023 17:12:38 11/09/19 24 11/09/2023 SEDIM ENTAT ION RATE performing lab see note ML - [facility] [address] [place] [place] [address] Not Available [address] , [place], [address], 11/09/2023 17:12:38 11/09/19 24 11/09/2023 FRUCT OSAMI NE note See Note Order ing Provi prieto: Krista Aguillon MD Not Available [address] , [place], [address], 11/11/2023 09:12:34 11/09/19 24 11/09/2023 FRUCT OSAMI NE fructosamine 192 umol/ L 0-285 Publi shed refer ence inter yan for appar ently healt hy subje cts betwe en age 20 and 60 is 205 - 285 umol/ L and in a poorl y contr olled diabe tic popul ation is 228 - 563 umol/ L with a mean of 396 umol/ L. Perfo rmed At: CB, [facility] [address] [place], [address] Ricky madrid, PhD, Phone : [phone] Not Available [address] , [place], [address], 11/11/2023 09:12:34 11/09/19 24 11/09/2023 FRUCT OSAMI NE performing lab see note LC2 - LABCO RP CLIEN T# [id number] [address] [place] [address] Not Available [address] , [place], [address], 11/11/2023 09:12:34 12/25/19 24 12/25/2023 GLUCO SE POINT OF CARE note See Note Order ing Provi prieto: Krista Aguillon MD Not Available [address] , [place], [address], 12/25/2023 07:47:03 12/25/19 24 12/25/2023 GLUCO SE POINT OF CARE glucose point of care 113 mg/dL 70-99 high Not Available [address] , [place], [address], 12/25/2023 07:47:03 12/25/19 24 12/25/2023 GLUCO SE POINT OF CARE performing lab see note [facility] - [id number] [place] [address] Not [address] , [place], [address], 12/25/2023 07:47:03 11/09/19 XR, knee No observ ation record ed. SHAKILA Hansen [address] , [place], [address], 11/09/2023 13:46:11 11/09/1911/09/2023 XR, chest , 2 view [facility] Medica l Ce Name: GOMESSELENE URENA [facility] Medica [facility] [address] Phys: Pal VARGAS,[place] [address] : 1960 Age: 63 Sex: F Acct: [id number] Loc: G.DS PHONE #: [phone] Exam Date: 2023 Status : PRE SDC FAX #: [phone] Rad# [id number] Unit# [id number] Admit Date: 2023 EXAMS: CPT CODE: [id number] CHEST 2 VIEWS 13267 CLINIC AL INFORM ATION: Tobacc o use. Preope rative evalua tion right knee surger y COMPAR SUZY: 020 FINDIN GS: PA and latera l projec tions obtain ed. Lungs well expand ed and withou t infilt rate or effusi on. Heart and vascul arity within normal limits . Loop record er projec ts in the anteri or chest wall No gross osseou s pathol ogy. IMPRES АЛЕКСАНДР: 1. No acute cardio pulmon ina abnorm ality. COMMUN ICATIO N: Per this writte n report This report is genera deangelo using voice recogn ition comput er softwa re. Inadve rtent errors may have occurr ed while dictat ing report . Common sense approa ch is apprec iated and do not hesita te to call for clarif icatio n when necess ina. Electr onical ly Signed by Juan Carlos Cruz on 2023 at 1651 Report ed and signed by: ISMAEL Cruz M.D. CC: Rene Aguillon MD; Sully Olson APRN Dictat ed Date/T dima: 2023 (1650) Techno logist : FRANK Rocha Transc ribed Date/T dima: 2023 (1650) Transc riptio nist: DR.HAR PEDROZA Electr onic Signat ure Date/T dima: 2023 (1650) Printe d Date/T dima: 2023 (1653) BATCH NO: N/A PAGE 1 Signed Report CC'ed Logic: Orderi ng Provid er: PAL RODRIGUEZ Attend ing Provid er: PAL RODRIGUEZ Referr ing Provid er: PAL RODRIGUEZ Consul ting Provid er: HENRY treadwell [address] , [place], [address], 11/10/2023 07:28:58 12/04/1912/04/2023 - CT lower ext w/o cont RT [facility] Med[facility] Ce Name: SELENE GOMES [facility] [employer] [facility] Phys: Pal VARGAS,[place] [address] : 1960 Age: 63 Sex: F Acct: [id number] Loc: G.CT PHONE #: Exam Date: 2023 Status : REG CLI FAX #: Rad# [id number] Unit# [id number] Admit Date: 2023 EXAMS: CPT CODE: [id number] [place] LOWER EXT W/[place] [address] CT RIGHT LOWER EXTREM ITY WITHOU T CONTRA ST, 024: CLINIC AL HISTOR Y: Osteoa rthrit is of the right knee joint. Operat lisset planni ng. COMPAR SUZY: 4 views right knee, 12/13/19 24 TECHNI QUE: Multip le axial images throug h the right lower extrem ity were obtain ed withou t the use of intrav enous contra st. Sherman l and sagitt al recons tructi ons of the hip, knee, and ankle joints were perfor med. The mAs utiliz ed during the scan were adjust ed accord ing to patien t's size. FINDIN GS: HIP: There is no acute fractu re or disloc ation. There are mild osteoa rthrit ic change s of the right hip. The visual ized muscul ature is unrema rkable KNEE: There is no acute fractu re or disloc ation. The proxim al tibial epiphy sis, just medial to midlin e, there is a sclero tic focus measur ing 1.9 cm in [facility] diamet er. This is new from 2021. There are tricom partme ntal osteoa rthrit ic change s, advanc ed in the medial compar tment, modera te in the patell ofemor al compar tment, and mild within the latera l compar tment. There is a trace joint effusi on. Visual ized muscul ature is unrema rkable . 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 There is subcho ndral cyst format ion of the third throug h fifth tarsom etatar mandy joints , the talona vicula r joint, and the navicu lar cuneif orm articu lation s. The visual ized soft tissue s are unrema rkable IMPRES АЛЕКСАНДР: 1. Tricom partme ntal osteoa rthrit ic change s of the right knee, advanc ed in the medial and the patell ofemor al compar tment 2. 1.9 cm sclero tic focus within the tibial epiphy sis above the anteri or tibial tuberc le. This is probab ly reacti ve to degene rative change althou gh avascu lar necros is remain s in the differ ential diagno sis 3. Findin gs sugges ting calciu m pyroph osphat e arthro jake of the PAGE 1 Signed Report (LIZBETH NUED) [facility] Name: SELENE GOMES [employer] Phys: Pal VARGAS,Christiano Rangel [facility] [place] [address] : 1960 Age: 63 Sex: F Acct: [id number] Loc: G.CT PHONE #: Exam Date: 2023 Status : REG CLI FAX #: Rad# [id number] Unit# [id number] Admit Date: 2023 EXAMS: CPT CODE: [id number] [place] EXT W/[place] [address] tarsal tarsal and tarsom etatar mandy joints Electr onical ly Signed by MADAI LOVETT MD on 2023 at 1741 Report ed and signed by: MADAI LOVETT MD CC: GENIE FREGOSO MD; Rene Aguillon MD Dictat ed Date/T dima: 2023 (174) Techno logist : FRANK DORSEY R; VONDA Cruz RT(R)( CT) Transc ribed Date/T dima: 2023 (174) Transc riptio nist: DR.HAG EVA Mo onic Signat ure Date/T dima: 2023 (174) Printe d Date/T dima: 2023 (1744) BATCH NO: N/A PAGE 2 Signed Report CC'ed Logic: Orderi ng Provid er: AGUILLON RENE Attend ing Provid er: PAL RODRIGUEZ Referr ing Provid er: PAL RODRIGUEZ Consul ting Provid er: ILDEFONSO GENIE treadwell [address] , [place], [address], 12/05/2023 07:33:36 12/25/19 24 12/25/2023 XR, knee, 1 or 2 view [facility] Ce Name: SELENE GOMES [employer] [address] Phys: Pal VARGAS,[place] [address] : 1960 Age: 63 Sex: F Acct: [id number] Loc: TUCKER PHONE #: Exam Date: 2023 Status : REG SDC FAX #: Rad# [id number] Unit# [id number] Admit Date: 2023 EXAMS: CPT CODE: [id number] KNEE AP LATERA L RIGHT 39196 CLINIC AL INFORM ATION: Total arthro plasty COMPAR SUZY: 4. FINDIN GS: 2 views obtain ed Status post total left arthro plasty . Orthop aedic elemen ts well-p ositio travis. No gross compli cation . No signif icant soft tissue abnorm ality. IMPRES АЛЕКСАНДР: Normal -appea ring right TKR Commun icatio n: Per this dictat ed report This report is genera deangelo using voice recogn ition comput er softwa re. Inadve rtent errors may have occurr ed while dictat ing report . Common sense approa ch is apprec iated and do not hesita te to call for clarif icatio n when necess ina. Electr onical ly Signed by Juan Carlos Cruz on 2023 at 1250 Report ed and signed by: ISMAEL Cruz M.D. CC: Rene Aguillon MD; Sully Olson APRN Dictat ed Date/T dima: 09/16/ 2024 (1250) Techno logist : SULLY WALDEN Transc ribed Date/T dima: 2023 (1250) Transc riptio nist: DR.HAR YOVANY carreon Signat ure Date/T dima: 2023 (1250) Printe d Date/T dima: 2023 (4393) BATCH NO: N/A PAGE 1 Signed Report CC'ed Logic: Orderi ng Provid er: PAL RODRIGUEZ Attend ing Provid er: PAL RODRIGUEZ Referr ing Provid er: PAL RODRIGUEZ Consul ting Provid er: HENRY OROPEZAN SULLY [facility] [address] , [place], [address], 12/26/2023 07:37:49 01/08/20 24 01/08/2024 - duple x venou s low ext RT [facility] Medica l Ce Name: SELENE GOMES [address] [place] [address] Phys: Sherrill DOCK MANAGER/F FRUIT RECEIVER,[place] [address] : 1960 Age: 63 Sex: F Acct: [id number] Loc: Cris. PHONE #: Exam Date: 2023 Status : REG CLI FAX #: Rad# [id number] Unit# [id number] Admit Date: 2023 EXAMS: CPT CODE: [id number] [place] [address] HISTOR Y: Postop right knee replac ement. Right lower extrem ity swelli ng COMPAR ISONS: None FINDIN GS: Gomes-s kayleigh imagin g, color flow dopple r and spectr al analys is of the right lower extrem ity was perfor med. There is normal respir atory variat ion, flow augmen tation , valsal va change s, and normal compre ssibil ity of the right common femora l, superf icial femora l, and poplit eal veins. The deep veins of the calf and greate r saphen ous vein are freely compre ssible . Comple x 2.8 x 4.6 x 1.5 cm collec tion audio video tech ior to the knee sugges tive of a comple x Quinn' s cyst or less likely postsu rgical hemato ma. Superf icial edema noted in the calf IMPRES АЛЕКСАНДР: 1. No eviden ce of DVT in the right lower extrem ity. 2. 4.6 cm comple x Quinn' s cyst versus postsu rgical hemato ma medial poplit eal fossa COMMUN ICATIO N: Per this writte n report This report is genera deangelo using voice recogn ition comput er softwa re. Inadve rtent errors may have occurr ed while dictat ing report . Common sense approa ch is apprec iated and do not hesita te to call for andrea bloodo n when necess ina. PAGE 1 Signed Report (LIZBETH NUED) [facility] Ce Name: SELENE GOMES Stephanie [employer] Phys: Danforth DOCK MANAGER/F FRUIT RECEIVER,Gregory [facility] [place] [address] : 1960 Age: 63 Sex: F Acct: [id number] Loc: G. PHONE #: Exam Date: 2023 Status : REG CLI FAX #: Rad# [id number] Unit# [id number] Admit Date: 2023 EXAMS: CPT CODE: [id number] [place] [address] Electr onical ly Signed by Juan Carlos Cruz on 2023 at 1055 Report ed and signed by: ISMAEL Cruz M.D. CC: GENIE FREGOSO MD; Danica Willard Sherrill DOCK MANAGER/F FRUIT RECEIVER Dictat ed Date/T dima: 2023 (1055) Techno logist : LINDSA Y DALE Transc ribed Date/T dima: 2023 (1055) Transc riptio nist: DR.HAR PEDROZA Electr onic Signat ure Date/T dima: 2023 (1055) Printe d Date/T dima: 2023 (1059) BATCH NO: N/A PAGE 2 Signed Report CC'ed Logic: Orderi ng Provid er: SHERRILL DANICA Attend ing Provid er: SHERRILL DANICA Referr ing Provid er: SHERRILL DANICA Consul ting Provid er: ILDEFONSO marino [address] [place], [address], 01/08/2024 11:28:07 02/05/20 24 XR, knee No observ ation record ed. [email or web address] Mv [address] , [place], [address], 02/05/2024 13:55:43 Result Notes Documentation Provider Name and Address Organization Details Recorded Time Xr, Chest, 2 View : [facility] Name: ANETTE GOMES [address] [place] [address] Phys: Pal VARGAS,Rene Fernández [place] [address] : 1960 Age: 63 Sex: F Acct: [id number] Loc: TUCKER PHONE #: Exam Date: 11/09/2023 Status: PRE [facility] FAX #: Rad# [id number] Unit# [id number] Admit Date: 12/25/2023 EXAMS: CPT CODE: [id number] CHEST 2 VIEWS 66867 CLINICAL INFORMATION: Tobacco use. Preoperative evaluation right knee surgery COMPARISON: 12/19/2019 FINDINGS: PA and lateral projections obtained. Lungs well expanded and without infiltrate or effusion. Heart and vascularity within normal limits. Loop recorder projects in the anterior chest wall No gross osseous pathology. IMPRESSION: 1. No acute cardiopulmonary abnormality. COMMUNICATION: Per this written report This report is generated using voice recognition computer software. Inadvertent errors may have occurred while dictating report. Common sense approach is appreciated and do not hesitate to call for clarification when necessary. at 1651 Reported and signed by: LIZBETH SUH M.D. CC: Rene Aguillon MD; Alyssa Olson APRN Dictated Date/Time: 11/09/2023 (1650) Technologist: FRANK MARI Transcribed Date/Time: 11/09/2023 (192) Install And Repair Technician: Electronic Signature Date/Time: 11/09/2023 (1650) Printed Date/Time: 11/09/2023 (1653) BATCH NO: N/A PAGE 1 Signed Report CC'ed Logic: Ordering Provider: PAL RODRIGUEZ Attending Provider: PAL RODRIGUEZ Referring Provider: PAL RODRIGUEZ Consulting Provider: HENRY Baumann [facility], [facility] & [place] 11/10/2023 07:28:58 Xr, Knee, 1 Or 2 View : [facility] Ce Name: ANETTE GOMES [employer] Phys: Pal VARGAS,Rene Fernández [place] [address] : 1960 Age: 63 Sex: F Acct: [id number] Loc: TUCKER PHONE #: Exam Date: 12/25/2023 Status: REG [facility] FAX #: Rad# [id number] Unit# [id number] Admit Date: 12/25/2023 EXAMS: CPT CODE: [id number] KNEE AP LATERAL RIGHT 01052 CLINICAL INFORMATION: Total arthroplasty COMPARISON: 10/23/13. FINDINGS: 2 views obtained Status post total left arthroplasty. Orthopaedic elements well-positioned. No gross complication. No significant soft tissue abnormality. IMPRESSION: Normal-appearing right TKR Communication: Per this dictated report This report is generated using voice recognition computer software. Inadvertent errors may have occurred while dictating report. Common sense approach is appreciated and do not hesitate to call for clarification when necessary. at 1250 Reported and signed by: LIZBETH SUH M.D. CC: Rene Aguillon MD; Alyssa Olson APRN Dictated Date/Time: 12/25/2023 (5850) Technologist: GABRIEL WALDEN Transcribed Date/Time: 12/25/2023 (1250) Install And Repair Technician: Electronic Signature Date/Time: 12/25/2023 (1580) Printed Date/Time: 12/25/2023 (9580) BATCH NO: N/A PAGE 1 Signed Report CC'ed Logic: Ordering Provider: PAL RODRIGUEZ Attending Provider: PAL RODRIGUEZ Referring Provider: PAL RODRIGUEZ Consulting Provider: HENRY dominguez, [place] - [facility] & [place] 12/26/2023 07:37:49 Procedures Surgical History Date Name Laterality Status Provider Name and Address Organization Details Recorded Time 09/18/2022 completed Shelley TAYLOR - [facility] - [place] & [place] 11/09/2023 13:48:28 04/10/2014 Other completed Shelley TAYLOR - [facility] - [place] & [place] 11/09/2023 13:48:49 Imaging Results None recorded. Procedure Notes None recorded. Medical Equipment None Reported. Allergies No known drug allergies Medications Name Sig Start Date Stop Date Status Note LastModified by Organization Details LastModified Time furosemide 40 mg tablet TAKE ONE (1) TABLET EVERY DAY BY ORAL ROUTE DIRECTED FOR 10 DAYS. active Not Available Not Available No t Available prednisone 10 mg tablet TAKE ONE TABLET BY MOUTH FOUR (4) TIMES DAILY FOR TWO (2) DAYS, ONE (1) TAB THREE (3) TIMES DAILY FOR TWO (2) DAYS, ONE (1) TAB TWICE DAILY FOR TWO (2) DAYS, THEN ONE (1) TAB DAILY FOR FOUR (4) DAYS UNTIL COMPLETED active Not Available Not Available No t Available paroxetine 10 mg tablet TAKE ONE (1) TABLET BY MOUTH EVERY DAY active Not Available Not Available No t Available Stool Softener 100 mg capsule TAKE ONE CAPSULE THREE TIMES A DAY WHILE ON PAIN MEDS active Not Available Not Available No t Available ibuprofen 800 mg tablet TAKE ONE (1) TABLET THREE (3) TIMES A DAY BY ORAL ROUTE AFTER MEAL(S) FOR 30 DAYS. active Not Available Not Available No t Available hydrocodone 5 mg-acetamin ophen 325 mg tablet TAKE ONE (1) TABLET THREE (3) TIMES A DAY BY ORAL ROUTE AFTER MEAL(S) FOR 7 DAYS, FOR POST-OP KNEE PAIN. active Not Available Not Available No t Available meloxicam 15 mg tablet TAKE 1 TABLET BY MOUTH ONCE DAILY active Not Available Not Available No t Available prednisone 20 mg tablet TAKE 3 TABLETS BY MOUTH EVERYDAY FOR 3 DAY THEN TAKE 2 TABLETS BY MOUTH EVERYDAY FOR 3 DAYS THEN TAKE 1 TABLET EVERYDAY FOR 3 DAYS 11/07 completed Not Available Not Available Not Available spironolact one 100 mg tablet TAKE ONE (1) TABLET BY MOUTH EVERY DAY active Not Available Not Available No t Available acetaminoph en 300 mg-codeine 30 mg tablet TAKE ONE (1) TABLET THREE (3) TIMES A DAY BY ORAL ROUTE AFTER MEALS FOR 30 DAYS. active Not Available Not Available No t Available clopidogrel 75 mg tablet TAKE ONE (1) TABLET BY MOUTH EVERY DAY active Not Available Not Available No t Available hydrocodone 10 mg-acetamin ophen 325 mg tablet TAKE ONE (1) TABLET THREE (3) TIMES A DAY BY ORAL ROUTE AFTER MEAL(S) FOR 30 DAYS. active Not Available Not Available No t Available aspirin 81 mg tablet,bryce yed release TAKE 1 TABLET BY MOUTH TWICE DAILY active Not Available Not Available No t Available cefadroxil 500 mg capsule TAKE 1 CAPSULE (500 MG) BY MOUTH TWICE DAILY active Not Available Not Available No t Available meloxicam 7.5 mg tablet TAKE ONE (1) TABLET (7.5 MG) BY ORAL ROUTE TWICE DAILY FOR 30 DAYS 11/07 completed Not Available Not Available Not Available oxycodone-a cetaminophe n 5 mg-325 mg tablet TAKE 1 TABLET BY MOUTH EVERY FOUR (4) HOURS NEEDED FOR PAIN active Not Available Not Available No t Available cephalexin 500 mg capsule TAKE ONE (1) CAPSULE TWICE A DAY BY ORAL ROUTE FOR 10 DAYS. 11/07 completed Not Available Not Available Not Available pantoprazol e 40 mg tablet,bryce yed release TAKE ONE (1) TABLET BY MOUTH EVERY DAY active Not Available Not Available No t Available trazodone 150 mg tablet TAKE ONE (1) TABLET BY MOUTH EVERY DAY NEEDED 11/07 completed Not Available Not Available Not Available promethazin e 25 mg tablet TAKE ONE (1) TABLET BY MOUTH EVERY SIX (6) HOURS NEEDED FOR NAUSEA FOR UP TO 20 DOSES. 11/07 completed Not Available Not Available Not Available bisacodyl 5 mg tablet,bryce yed release TAKE TWO (2) TABLETS EVERY DAY BY ORAL ROUTE AFTER A MEALFOR 10 DAYS. active Not Available Not Available No t Available ergocalcife rol (vitamin D2) 1,250 mcg (50,000 unit) capsule TAKE ONE (1) CAPSULE BY MOUTH EVERY WEEK active Not Available Not Available No t Available methylpredn isolone 4 mg tablets in a dose pack TAKE DIRECTED 11/07 completed Not Available Not Available Not Available etodolac 500 mg tablet TAKE 1 TABLET BY MOUTH TWICE DAILY active Not Available Not Available No t Available amoxicillin 875 mg-potassiu m clavulanate 125 mg tablet TAKE ONE (1) TABLET EVERY 12 HOURS BY ORAL ROUTE FOR 7 DAYS. active Not Available Not Available No t Available oxycodone 5 mg tablet TAKE ONE (1) TABLET BY MOUTH EVERY FOUR (4) HOURS NEEDED FOR MAJOR SURGERY/T RAUMA FOR UP TO 30 DOSES. 11/07 completed Not Available Not Available Not Available rosuvastati n 5 mg tablet TAKE ONE (1) TABLET BY MOUTH EVERY DAY active Not Available Not Available No t Available diclofenac 1 % topical gel APPLY TO AFFECTED AREA FOUR (4) GRAMS FOUR (4) TIMES DAILY 11/07 completed Not Available Not Available Not Available Anoro Ellipta 62.5 mcg-25 mcg/actuati on powder for inhalation INHALE ONE (1) PUFF BY MOUTH EVERY DAY active Not Available Not Available No t Available Vitals None Recorded Social History Question Answer Notes LastModified by Organizat ion Details LastModified Time Tobacco Smoking Status Current Every Day Smoker Shelley Espinosa [facility], [place] - [facility] - [place] & [place] 11/09/2023 13:48:44 Do You Have An Advance Directive? No Information not available 11/09/2023 Are You Blind Or Do You Have Difficulty Seeing? No Information not available 11/09/2023 What Was The Date Of Your Most Recent Tobacco Screening? 12/07/2022 Information not available 11/09/2023 How Much Tobacco Do You Smoke? 2 PPD Information not available 11/09/2023 How Many Years Have You Smoked Tobacco? 30 Information not available 11/09/2023 Sex: Unknown Functional Status Question Answer Note LastModified by Organizat ion Details LastModified Time What is your level of alcohol consumption? None Information not available 11/09/2023 Do you or have you ever used smokeless tobacco? Never used smokeless tobacco Information not available 11/09/2023 What is your exercise level? None Information not available 11/09/2023 Mental Status Question Answer Note LastModified by Organization D etails LastModified Time Do you feel stressed (tense, restless, nervous, or anxious, or unable to sleep at night)? [id number] Information not available 11/09/2023 Family History Nothing Reported. Medical History Condition Response Heart Attack (ID) Y Anemia Y Arthritis Y COPD Y Gynecological History Statement/Question Response Current Control Method N/A 09/18/2022 Sexually Active? N Obstetrics History GPAL:G 0 P 0 0 0 0 Past Encounters Encounter ID Performer Location Encounter Start Date Encounter Closed Date Diagnosis/Indication Diagnosis SNOMED-CT Code Diagnosis ICD10 Code Diagnosis IMO Codes Diagnosis Note [id number] MD GISEL Du [facility] [place] [address] 11/09/2023 13:07:50 11/09/2023 14:22:09 Osteoarthritis of right knee joint 7038970564 06131 M17.11 [id number] MD GISEL Du [facility] [place] [address] 11/22/2023 08:42:45 11/22/2023 09:01:57 Osteoarthritis of right knee joint 1183524448 37642 M17.11 [id number] MD GISEL Du [facility] [place] [address] 01/08/2024 09:01:08 01/08/2024 09:41:54 History of right total knee replacement 3924501326 256807 Z96.575 [id number] MD GISEL Du [facility] [place] [address] 02/05/2024 13:33:39 02/05/2024 14:56:16 History of right total knee replacement [id number] 792318 Z96.651 Health Concerns Section Related Observation LastModified by Organization Detai ls LastModified Time None Recorded Concern Status LastModified by Organization Details LastModified Time None Recorded Advance Directives Directive N: Payers Insurance Date Sequence Insurance Name Policy Number Policy Garcia Covered Member ID Garcia Member ID Guarantor Name 02/26/2024 1 [place] [id number] Anette Gomes [id number] Anette Gomes Notes Date Note Type Note Provider Name and Address Organization Details Recorded Time 11/09/2023 text/html Right knee painC/O continued swelling and pain of knee [facility] [facility] 04.28.23: Right knee scope partial medial meniscectomy and Medial tibial plateau insufficiency fracture with internal fixationlast Cortisone injection by PCP about a month ago, helped about 75% with painTaking Tylenol #3 PRN- prescribed by PCPMRI of knee in exam room on PC from 2022Right knee x-rays in office .05.03 Rene Aguillon MD [address] [place] [address],[address], [place], [address], [facility] & [place] 11/10/2023 13:56:14 11/22/2023 text/html SynovasureCRP [facility] 11/09/23- 6.1ESR [facility] 11/09/23- 1Right knee x-rays in office 8.05.03Scheduled for right robotic total knee replacement on 12/25/23E3AP Rene Aguillon MD [address] [place] [address],[address], [place], [address], [facility] & [place] 11/22/2023 13:36:06 01/08/2024 text/html ROS as noted in the HPI Pt is here for 2 week post op rt TKA . She is doing well. Her knee and lower leg is swollen. She reports she is taking lortab for pain. She is on ASA but needs to know when to start back on her plavix? She is wanting to go to OP PT here at [place] [id number] DANICA PAYNE NP [address] [place] [address],[address], [place], [address], [facility] & [place] 01/08/2024 09:59:24 02/05/2024 text/html Pt presents today for 6 week follow up DOS 9.16.24 RIGHT JOE CRESCENCIO ROBOTIC TOTAL KNEE ARTHROPLASTY. Pt is still experiencing some swelling, but has little pain except sometimes it feels like she's having a muscle spasm. Pt is taking [place] and ibuprofen for pain. Pt is not using anything to help ambulate. Pt is going to physical therapy once a week.[id number] DANICA PAYNE, ERICKSON [address] [facility],[address], [place], [address], [place] - [facility] - [place] & [place] 02/05/2024 14:29:39 OBGyn Episode No OBEpisode recorded.
--- OUTSIDE RECORDS SUMMARY | 2025-02-14 09:52 | XMS_ITS | Clinical Summary ---
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 Name Role Phone Unavailable Primary Care Provider [...] Date Smoking Tobacco: Every Day Cigarettes 1 49.8 Started: 1975 Smokeless Tobacco: Never Comments:Has tried to quit w ith nicotine patches/ didn't tolerate Alcohol Use Standard Drinks/Week Comments Never 0 (1 standard drink = 0.6 oz pur e alcohol) Comments Unknown Sex and Gender Information Value Date Recorded Sex Assigned at Not on file Legal Sex Female 12:42 AM EDT Gender Identity Not on file Sexual Orientation Not on file Last Filed Vital Signs Vital Sign Reading [...] of 2) 2010 COVID-19 Vaccine (1 - 2024-2 6 season) 2024 Influenza Vaccine (#1) 2024 Breast Cancer Screening 08/22/2025 08/23/19, 03/17/2021 DTaP/TDaP/Td (2 - Td or Tdap) 10/31/2026, 06/20/1996 Hepatitis B Vaccine Aged Out No longe r eligible based on patient's age to complete this topic Meningococcal B Vaccine Aged Out No l onger eligible based on patient's age to complete this topic Medical Devices Implanted Type Area Ornament Stitcher Device Identifier Shelf Expiration Date Model / Serial / Lot Kt Bone Cemnt [id number] [facility] - [id number] Implanted:Qty: 1 on 04/28/2023 by Carlos Holbrook MD at [facility] Right: Knee NITO:NITO 10/10/2025 [id number] / / [id number] Procedures Procedure Name Priority Date/Time Associated Diagnosis Comments MM MAMMO DIGITAL HORACE SCREEN BILAT Routine 08/23/2023 11:27 AM EDT Encounter for screening mammogram for malignant neoplasm of breast from Last 3 Months or Most Recently Relevant to Health Maintenance Results * MM MAMMO DIGITAL HORACE SCREEN BILAT (08/23/2023 11:27 AM EDT) Anatomical Region Laterality Modality Breast Bilateral Mammography 08/24/2023 8:2 8 AM EDT Impressions 08/24/2023 8:28 AM EDT Negative ([id number]) ~ RECOMMENDATION: Routine screening mammogram in 1 [...] the next mammogram, in accordance with the [employer] and the Society of Breast Imaging recommendations. Narrative 08/24/2023 8:28 AM EDT Procedure:MM MAMMO DIGITAL HORACE SCREEN BILAT ~ Reason for exam: screening, asymptomatic. Z12.31-Encounter for screening mammogram for malignant neoplasm of wrftev-PEI-80-CM ~ MM MAMMO DIGITAL HORACE SCREEN BILAT [...] for screening mammogram for malignant neoplasm of [id number]-PCW-60-CM ~ MM MAMMO DIGITAL HORACE SCREEN BILAT Bilateral CC and MLO view(s) were taken. There are scattered fibroglandular densities. Prior study comparison: Compared with prior studies the most recentbeing 03/17/21 No mammographic evidence of malignancy. ~ IMPRESSION: Negative ([id number]) ~ RECOMMENDATION: Routine screening mammogram in 1 [...] the next mammogram, in accordance with the [employer] and the Society of Breast Imaging recommendations. 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 Plan / Payer (Ef fective 2015-Present) Name:Anette Gomes Relation to Subscriber:Employee Name:[employer] Date of :1966 (Home) Address: ATTN: ZAIRA Berry [address] [place] [address] Payer ID:Not on file Group ID:Not on file Type:Not on file Address: ATTN: ZAIRA Berry [address] [address] [place] [address] ANTH MEDICARE ADVANTAGE MR * Guarantor: [employer] Account Type Relation to Patient Date of Phone Billing Address [employer] 1966 ATTN: ZAIRA [address] [address] [place] [address] 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 Plan / Payer (Ef fective 2015-Present) Name:Anette Gomes Relation to Subscriber:Employee Name:[employer] Date of :1966 (Home) Address: ATTN: ZAIRA [place] [address] [address] [place] [address] Payer ID:Not on file Group ID:Not on file Type:Not on file Address: ATTN: ZAIRA [place] [address] [address] [place] [address] * Guarantor: [facility] Account Type Relation to Patient Date of Phone Billing Address Corporate Other [address] [facility] Attn: Shaneka [facility] [address] [place] [phone]
--- OUTSIDE RECORDS SUMMARY | 2025-02-14 09:52 | XMS_ITS | Data Portability ---
Author Organization [facility] Address [address] [place] [address] Assessment Encounter Date Assessment Date Assessment LastModified by Organization Details LastModified Time 07/10/2024 07/10/2024 review card records, get notes mark Not available 07/10/2024 11:24:16 10/21/2024 10/21/2024 Service was provided using audio [employer] . The patient verbally consents to virtual services and the consent is documented in the medical record prior to using the service. Patient is located at their place of residence in [facility]. Provider is located at medical clinic in [facility]. Names and roles of all persons participating in telemedicine services include:[email or web address] 15 minutes spent in discussion with patient [email or web address] Not available 10/22/2024 09:47:31 Plan of Treatment Reminders Order Date Submit Date Provider Last Modified By Organization Details Last Modified Time Details Appointments None recorded. Lab magnesium, serum or plasma 2024 025 SHAKILA [facility], [address], [address], [place], [address], 5 13:08:09 iron + total iron-tatum ng capacity (TIBC), serum 2024 025 SHAKILA [facility], [address], [place] [address], [place], [address], 5 13:08:07 cobalamin and folate panel, serum 2024 025 SHAKILA [facility], [address], [place], [place], [address], 5 13:08:08 CK (creatine kinase), total, serum 2024 025 SHAKILA [facility], [address], [place] [address], [place], [address], 5 13:08:08 CMP, serum or plasma 2024 025 SHAKILA [facility], [address], [address], [place], [address], 5 13:08:06 CBC w/ auto diff 2024 025 SHAKILA [facility], [address], [address], [place], [address], 5 13:08:05 TSH + free T4, serum 2024 025 SHAKILA [facility], [address], [address], [place], [address], 5 07:41:01 magnesium, serum or plasma 2024 025 SAHKILA [facility], [address], [place] [address], [place], [address], 5 07:41:05 CMP, serum or plasma 2024 025 SHAKILA [facility], [address], [place] [address], [place], [address], 5 07:41:03 CBC w/ auto diff 2024 025 SHAKILA [facility], [address], [address], [place], [address], 5 07:41:02 HbA1c (hemoglobi n A1c), blood 2024 025 SHAKILA [facility], [address], [place] [address], [place], [address], 5 07:41:04 vitamin D, 25-hydroxy , total, serum 2024 025 GLEN SPEY [facility], [address], [place] [address], [place], [address], 5 07:41:[address]/dietiti an referral 2024 025 [facility], [address] [place] [address], [address], 5 17:45:17 Procedures None recorded. Surgeries None recorded. Imaging LDCT, chest, for lung cancer screening 2024 025 [facility], [address] [place] [address], [id number], 5 13:04:42 Medication Orders prednisone 20 mg tablet 2024 025 [facility], [address] [place] [address], [address], 5 15:00:55 azithromyc in 250 mg tablet 2024 025 [facility], [address] [place] [address], [address], 5 15:00:55 azithromyc in 250 mg tablet 2024 025 [facility], [address] [place] [address], [address], 5 10:42:27 prednisone 20 mg tablet 2024 025 [facility], [address] [place] [address], [address], 5 05:01:23 ipratropiu m 0.5 mg-albuter ol 3 mg (2.5 mg base)/3 mL nebulizati on soln 2024 025 [facility], [address] [place] [address], [address], 5 10:40:08 nicotine 21 mg/24 hr daily transderma l patch 2024 025 [facility], [address] [place] [address], [address], 5 10:41:08 nicotine (polacrile x) 4 mg buccal lozenge [address], [address], 5 10:41:08 trazodone 100 mg tablet 2024 025 [facility], [address] [place] [address], [address], 5 14:17:27 methocarba mol 500 mg tablet [address], [address], 5 14:17:27 metformin 500 mg tablet [address], [address], 5 14:16:34 furosemide 40 mg tablet [address], [address], 5 11:23:15 potassium chloride ER 10 mEq tablet,ext ended release 2024 025 [facility], [address] [place] [address], [place], [address], 5 11:23:13 paroxetine 10 mg tablet 2024 025 [facility] - [address], [address], 5 11:23:11 meloxicam 15 mg tablet 2024 025 [facility] - [address], [address], 5 11:23:09 metoprolol succinate ER 25 mg tablet,ext ended release 24 hr [address], [address], 5 11:23:09 spironolac tone 100 mg tablet [address], [address], 5 11:23:10 clopidogre l 75 mg tablet [address], [address], 5 11:23:14 rosuvastat in 5 mg tablet [address], [address], 5 11:23:16 Anoro Ellipta 62.5 mcg-25 mcg/actuat ion powder for inhalation [address], [address], 5 11:23:10 Solu-Medro l (PF) 125 mg/2 mL solution for injection 2024 025 [email or web address] [facility], [address] [place] [address], [place], [address], 5 09:47:32 prednisone 20 mg tablet 2024 025 SHAKILA [facility], [address] [place] [address], [place], [address], 5 05:01:23 azithromyc in 500 mg tablet [address], [place], [address], 5 09:50:39 ceftriaxon e 1 gram solution for injection 2024 025 [email or web address] [facility], [address] [place] [address], [place], [address], 5 09:47:06 Patient TargetsNo targets recorded. Patient Instructions Encounter Date Encounter Id Patient Instructions Last Modified By Organization Details Last Modified Time 07/10/2024 [id number] medical record request* - Please provide recent visit note(s) and any relevant results [email or web address] Not available 07/18/2024 16:00:25 chronic obstructive pulmonary disease (COPD): care instructions [email or web address] Not available 07/10/2024 11:23:06 learning about copd and how to prevent lung infections [email or web address] Not available 07/10/2024 11:23:06 07/25/2024 [id number] insomnia: care instructions [email or web address] Not available 07/25/2024 14:16:33 All questions answered and pt/guardian satisfied with treatment plan. Call with changes RTC or ED if symptoms change or worsen Keep next interval checkup Cont. chronic meds as prescribed Chronic conditions are stable Discussed natural and expected course of this diagnosis and need to alert the office if symptoms do not follow expected course or if any worsens [email or web address] Not available 07/25/2024 21:01:15 09/19/2024 [id number] smoking cessatio n counseling, greater than 3 minutes up to 10 minutes* [email or web address] Not available 09/19/2024 10:40:07 body mass index: care instructions [email or web address] Not available 09/19/2024 10:38:41 learning about healthy weight [email or web address] Not available 09/19/2024 10:38:41 All questions answered and pt/guardian satisfied with treatment plan. Call with changes RTC or ED if symptoms change or worsen Keep next interval checkup Cont. chronic meds as prescribed Chronic conditions are stable Discussed natural and expected course of this diagnosis and need to alert the office if symptoms do not follow expected course or if any worsens [email or web address] Not available 09/19/2024 10:42:33 10/21/2024 [id number] All questions answered and pt/guardian satisfied with treatment plan. Call with changes RTC or ED if symptoms change or worsen Keep next interval checkup Cont. 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 for Body mass index 30+ - obesity Referring Physician: Juwan Gomes, Family Medicine, Encounter Date: 09/19/2024 Results Created Date Observation Date Name Description Value Unit Range Abnormal Flag Note LastModifiedBy Organization Detail LastModifiedTime 07/11/1907/11/2024 TSH+F REE T4 TSH 2.260 uIU/m L 0.450- 4.500 normal Not Available [facility] ([facility]) [address] [facility], [place], [address], 07/11/2024 07:41:01 07/11/1907/11/2024 TSH+F REE T4 T4,free(dire ct) 1.44 NG/dL 0.82-1 .77 normal Not Available [facility] ([facility]) [address] [facility], [place], [address], 07/11/2024 07:41:01 07/11/19 25 07/11/2024 CBC WITH DIFFE RENTI AL/PL ATELE T WBC 6.5 x10e3 /uL 3.4-10 .8 normal Not Available [facility] ([facility]) [address] [facility], [place], [address], 07/11/2024 07:41:02 07/11/19 25 07/11/2024 CBC WITH DIFFE RENTI AL/PL ATELE T RBC 5.15 x10e6 /uL 3.77-5 .28 normal Not Available [facility] ([facility]) [address] [place], [address], 07/11/2024 07:41:02 07/11/19 25 07/11/2024 CBC WITH DIFFE RENTI AL/PL ATELE T hemoglobin 15.3 g/dL 11.1-1 5.9 normal Not Available [facility] ([facility]) [address] [place], [address], 07/11/2024 07:41:02 07/11/19 25 07/11/2024 CBC WITH DIFFE RENTI AL/PL ATELE T hematocrit 47.9 % 34.0-4 6.6 above high normal Not Available [facility] ([facility]) [address] [place], [address], 07/11/2024 07:41:02 07/11/19 25 07/11/2024 CBC WITH DIFFE RENTI AL/PL ATELE T MCV 93 fL 79-97 normal Not Available [facility] ([facility]) [address] [place], [address], 07/11/2024 07:41:02 07/11/19 25 07/11/2024 CBC WITH DIFFE RENTI AL/PL ATELE T MCH 29.7 pg 26.6-3 3.0 normal Not Available [facility] ([facility]) [address] [facility], [place], [address], 07/11/2024 07:41:02 07/11/19 25 07/11/2024 CBC WITH DIFFE RENTI AL/PL ATELE T MCHC 31.9 g/dL 31.5-3 5.7 normal Not Available [facility] ([facility]) [address] [facility], [place], [address], 07/11/2024 07:41:02 07/11/19 25 07/11/2024 CBC WITH DIFFE RENTI AL/PL ATELE T RDW 13.4 % 11.7-1 5.4 Not Available [facility] ([facility]) [address] [facility], [place], [address], 07/11/2024 07:41:02 07/11/19 25 07/11/2024 CBC WITH DIFFE RENTI AL/PL ATELE T platelets 239 x10e3 /uL 150-45 0 normal Not Available [facility] ([facility]) [address] [facility], [place], [address], 07/11/2024 07:41:02 07/11/19 25 07/11/2024 CBC WITH DIFFE RENTI AL/PL ATELE T neutrophils 59 % not estab. normal Not Available [facility] ([facility]) [address] [facility], [place], [address], 07/11/2024 07:41:02 07/11/19 25 07/11/2024 CBC WITH DIFFE RENTI AL/PL ATELE T lymphs 29 % not estab. normal Not Available [facility] ([facility]) [address] [facility], [place], [address], 07/11/2024 07:41:02 07/11/19 25 07/11/2024 CBC WITH DIFFE RENTI AL/PL ATELE T monocytes 6 % not estab. normal Not Available [facility] ([facility]) [address] [facility], [place], [address], 07/11/2024 07:41:02 07/11/19 25 07/11/2024 CBC WITH DIFFE RENTI AL/PL ATELE T eos 3 % not estab. normal Not Available [facility] ([facility]) [address] [facility], [place], [address], 07/11/2024 07:41:02 07/11/19 25 07/11/2024 CBC WITH DIFFE RENTI AL/PL ATELE T basos 2 % not estab. normal Not Available [facility] ([facility]) [address] [place], [address], 07/11/2024 07:41:02 07/11/19 25 07/11/2024 CBC WITH DIFFE RENTI AL/PL ATELE T immature cells DIRECTOR TELEMETRY Not Available [facility] ([facility]) [address] [place], [address], 07/11/2024 07:41:02 07/11/19 25 07/11/2024 CBC WITH DIFFE RENTI AL/PL ATELE T neutrophils (absolute) 3.9 x10e3 /uL 1.4-7. 0 normal Not Available [facility] ([facility]) [address] [place], [address], 07/11/2024 07:41:02 07/11/19 25 07/11/2024 CBC WITH DIFFE RENTI AL/PL ATELE T lymphs (absolute) 1.9 x10e3 /uL 0.7-3. 1 normal Not Available [facility] ([facility]) [address] [place], [address], 07/11/2024 07:41:02 07/11/19 25 07/11/2024 CBC WITH DIFFE RENTI AL/PL ATELE T monocytes(ab solute) 0.4 x10e3 /uL 0.1-0. 9 normal Not Available [facility] ([facility]) [address] [place], [address], 07/11/2024 07:41:02 07/11/19 25 07/11/2024 CBC WITH DIFFE RENTI AL/PL ATELE T eos (absolute) 0.2 x10e3 /uL 0.0-0. 4 normal Not Available [facility] ([facility]) [address] [facility], [place], [address], 07/11/2024 07:41:02 07/11/19 25 07/11/2024 CBC WITH DIFFE RENTI AL/PL ATELE T baso (absolute) 0.1 x10e3 /uL 0.0-0. 2 normal Not Available [facility] ([facility]) [address] [facility], [place], [address], 07/11/2024 07:41:02 07/11/19 25 07/11/2024 CBC WITH DIFFE RENTI AL/PL ATELE T immature granulocytes 1 % not estab. Not Available [facility] ([facility]) [address] [facility], [place], [address], 07/11/2024 07:41:02 07/11/19 25 07/11/2024 CBC WITH DIFFE RENTI AL/PL ATELE T immature grans (abs) 0.0 x10e3 /uL 0.0-0. 1 Not Available [facility] ([facility]) [address] [place], [address], 07/11/2024 07:41:02 07/11/19 25 07/11/2024 CBC WITH DIFFE RENTI AL/PL ATELE T NRBC DIRECTOR TELEMETRY Not Available [facility] ([facility]) [address] [facility], [place], [address], 07/11/2024 07:41:02 07/11/19 25 07/11/2024 CBC WITH DIFFE RENTI AL/PL ATELE T hematology comments: DIRECTOR TELEMETRY Not Available [facility] ([facility]) [address] [place], [address], 07/11/2024 07:41:02 07/11/19 25 07/11/2024 COMP. METAB OLIC PANEL (14) glucose 93 mg/dL 70-99 normal Not Available [facility] ([facility]) [address] [facility], [place], [address], 07/11/2024 07:41:03 07/11/19 25 07/11/2024 COMP. METAB OLIC PANEL (14) BUN 14 mg/dL 8-27 normal Not Available [facility] ([facility]) [address] [facility], [place], [address], 07/11/2024 07:41:03 07/11/19 25 07/11/2024 COMP. METAB OLIC PANEL (14) creatinine 0.92 mg/dL 0.57-1 .00 normal Not Available [facility] ([facility]) [address] [place], [address], 07/11/2024 07:41:03 07/11/19 25 07/11/2024 COMP. METAB OLIC PANEL (14) eGFR 70 mL/mi n/1.7 3 >59 normal Not Available [facility] ([facility]) [address] [place], [address], 07/11/2024 07:41:03 07/11/19 25 07/11/2024 COMP. METAB OLIC PANEL (14) BUN/creatini ne ratio 15 12-28 normal Not Available [facility] ([facility]) [address] [place], [address], 07/11/2024 07:41:03 07/11/19 25 07/11/2024 COMP. METAB OLIC PANEL (14) sodium 141 mmol/ L 134-14 4 normal Not Available [facility] ([facility]) [address] [place], [address], 07/11/2024 07:41:03 07/11/19 25 07/11/2024 COMP. METAB OLIC PANEL (14) potassium 4.9 mmol/ L 3.5-5. 2 normal Not Available [facility] ([facility]) [address] [facility] [place], [address], 07/11/2024 07:41:03 07/11/19 25 07/11/2024 COMP. METAB OLIC PANEL (14) chloride 102 mmol/ L 96-106 normal Not Available [facility] ([facility]) [address] [facility] [place], [address], 07/11/2024 07:41:03 07/11/19 25 07/11/2024 COMP. METAB OLIC PANEL (14) carbon dioxide, total 25 mmol/ L 20-29 normal Not Available [facility] ([facility]) [address] [facility] [place], [address], 07/11/2024 07:41:03 07/11/19 25 07/11/2024 COMP. METAB OLIC PANEL (14) calcium 9.2 mg/dL 8.7-10 .3 normal Not Available [facility] ([facility]) [address] [facility] [place], [address], 07/11/2024 07:41:03 07/11/19 25 07/11/2024 COMP. METAB OLIC PANEL (14) protein, total 6.2 g/dL 6.0-8. 5 normal Not Available [facility] ([facility]) [address] [facility] [place], [address], 07/11/2024 07:41:03 07/11/19 25 07/11/2024 COMP. METAB OLIC PANEL (14) albumin 4.0 g/dL 3.9-4. 9 normal Not Available [facility] ([facility]) [address] [facility] [place], [address], 07/11/2024 07:41:03 07/11/19 25 07/11/2024 COMP. METAB OLIC PANEL (14) globulin, total 2.2 g/dL 1.5-4. 5 Not Available [facility] ([facility]) [address] [place], [address], 07/11/2024 07:41:03 07/11/19 25 07/11/2024 COMP. METAB OLIC PANEL (14) bilirubin, total 0.3 mg/dL 0.0-1. 2 normal Not Available [facility] ([facility]) [address] [place], [address], 07/11/2024 07:41:03 07/11/19 25 07/11/2024 COMP. METAB OLIC PANEL (14) alkaline phosphatase 86 IU/L 44-121 normal Not Available [facility] ([facility]) [address] [facility], [place], [address], 07/11/2024 07:41:03 07/11/19 25 07/11/2024 COMP. METAB OLIC PANEL (14) AST (SGOT) 14 IU/L 0-40 normal Not Available [facility] ([facility]) [address] [facility], [place], [address], 07/11/2024 07:41:03 07/11/19 25 07/11/2024 COMP. METAB OLIC PANEL (14) ALT (SGPT) 16 IU/L 0-32 normal Not Available [facility] ([facility]) [address] [place], [address], 07/11/2024 07:41:03 07/11/19 25 07/11/2024 HEMOG LOBIN A1C hemoglobin A1C 6.1 % 4.8-5. 6 above high normal Predi abete s: 5.7 - 6.4 Diabe sharif: >6.4 Glyce max contr ol for adult s with diabe sharif: <7.0 Not Available [facility] ([facility]) [address] [place], [address], 07/11/2024 07:41:04 07/11/19 25 07/11/2024 VITAM IN D, 25-HY DROXY vitamin D, 25-hydroxy 15.0 NG/mL 30.0-1 00.0 below low normal Vitam in D defic iency has been defin ed by the Insti tute of Medic ine and an Endoc rine Socie ty pract ice guide line as a level of serum 25-OH vitam in D less than 20 ng/mL (1,2) . The Endoc rine Socie ty went on to furth er defin e vitam in D insuf ficie ncy as a level betwe en 21 and 29 ng/mL (2). 1. IOM (Inst itute of Medic ine). 2010. Aislinn ry refer ence allen es for calci um and D. Anthony barboza [place]: [facility] . 2. Michael mir MF, Dottie mckenzie [place], Jayda off-F errar i ZACARIAS, et al. Evalu ation , treat ment, and preve ntion of vitam in D defic iency : an Endoc rine Socie ty clini ivon pract ice guide line. JCEM. 2010; 96(7) :1911 -30. Not Available [facility] ([facility]) [address] [place], [address], 07/11/2024 07:41:05 07/11/19 25 07/11/2024 MAGNE SIUM magnesium 2.4 mg/dL 1.6-2. 3 above high normal Not Available [facility] ([facility] [employer] [facility]) [address] [place], [address], 07/11/2024 07:41:05 09/20/19 25 09/20/2024 CBC WITH DIFFE RENTI AL/PL ATELE T WBC 7.5 x10e3 /uL 3.4-10 .8 normal Not Available [facility] ([facility]) [address] [place], [address], 09/20/2024 13:08:05 09/20/19 25 09/20/2024 CBC WITH DIFFE RENTI AL/PL ATELE T RBC 5.11 x10e6 /uL 3.77-5 .28 normal Not Available [facility] ([facility]) [address] [place], [address], 09/20/2024 13:08:05 09/20/19 25 09/20/2024 CBC WITH DIFFE RENTI AL/PL ATELE T hemoglobin 15.5 g/dL 11.1-1 5.9 normal Not Available [facility] ([facility]) [address] [place], [address], 09/20/2024 13:08:05 09/20/19 25 09/20/2024 CBC WITH DIFFE RENTI AL/PL ATELE T hematocrit 49.4 % 34.0-4 6.6 above high normal Not Available [facility] ([facility]) [address] [place], [address], 09/20/2024 13:08:05 09/20/19 25 09/20/2024 CBC WITH DIFFE RENTI AL/PL ATELE T MCV 97 fL 79-97 normal Not Available [facility] ([facility]) [address] [place], [address], 09/20/2024 13:08:05 09/20/19 25 09/20/2024 CBC WITH DIFFE RENTI AL/PL ATELE T MCH 30.3 pg 26.6-3 3.0 normal Not Available [facility] ([facility]) [address] [place], [address], 09/20/2024 13:08:05 09/20/19 25 09/20/2024 CBC WITH DIFFE RENTI AL/PL ATELE T MCHC 31.4 g/dL 31.5-3 5.7 below low normal Not Available [facility] ([facility]) [address] [place], [address], 09/20/2024 13:08:05 09/20/19 25 09/20/2024 CBC WITH DIFFE RENTI AL/PL ATELE T RDW 13.6 % 11.7-1 5.4 Not Available [facility] ([facility]) [address] [facility], [place], [address], 09/20/2024 13:08:05 09/20/19 25 09/20/2024 CBC WITH DIFFE RENTI AL/PL ATELE T platelets 242 x10e3 /uL 150-45 0 normal Not Available [facility] ([facility]) [address] [facility], [place], [address], 09/20/2024 13:08:05 09/20/19 25 09/20/2024 CBC WITH DIFFE RENTI AL/PL ATELE T neutrophils 61 % not estab. normal Not Available [facility] ([facility]) [address] [facility], [place], [address], 09/20/2024 13:08:05 09/20/19 25 09/20/2024 CBC WITH DIFFE RENTI AL/PL ATELE T lymphs 28 % not estab. normal Not Available [facility] ([facility]) [address] [facility], [place], [address], 09/20/2024 13:08:05 09/20/19 25 09/20/2024 CBC WITH DIFFE RENTI AL/PL ATELE T monocytes 6 % not estab. normal Not Available [facility] ([facility]) [address] [facility], [place], [address], 09/20/2024 13:08:05 09/20/19 25 09/20/2024 CBC WITH DIFFE RENTI AL/PL ATELE T eos 2 % not estab. normal Not Available [facility] ([facility]) [address] [facility], [place], [address], 09/20/2024 13:08:05 09/20/19 25 09/20/2024 CBC WITH DIFFE RENTI AL/PL ATELE T basos 2 % not estab. normal Not Available [facility] ([facility]) [address] [facility], [place], [address], 09/20/2024 13:08:05 09/20/19 25 09/20/2024 CBC WITH DIFFE RENTI AL/PL ATELE T immature cells DIRECTOR TELEMETRY Not Available [facility] ([facility]) [address] [facility], [place], [address], 09/20/2024 13:08:05 09/20/19 25 09/20/2024 CBC WITH DIFFE RENTI AL/PL ATELE T neutrophils (absolute) 4.7 x10e3 /uL 1.4-7. 0 normal Not Available [facility] ([facility]) [address] [facility], [place], [address], 09/20/2024 13:08:05 09/20/19 25 09/20/2024 CBC WITH DIFFE RENTI AL/PL ATELE T lymphs (absolute) 2.1 x10e3 /uL 0.7-3. 1 normal Not Available [facility] ([facility]) [address] [place], [address], 09/20/2024 13:08:05 09/20/19 25 09/20/2024 CBC WITH DIFFE RENTI AL/PL ATELE T monocytes(ab solute) 0.5 x10e3 /uL 0.1-0. 9 normal Not Available [facility] ([facility]) [address] [place], [address], 09/20/2024 13:08:05 09/20/19 25 09/20/2024 CBC WITH DIFFE RENTI AL/PL ATELE T eos (absolute) 0.2 x10e3 /uL 0.0-0. 4 normal Not Available [facility] ([facility]) [address] [place], [address], 09/20/2024 13:08:05 09/20/19 25 09/20/2024 CBC WITH DIFFE RENTI AL/PL ATELE T baso (absolute) 0.1 x10e3 /uL 0.0-0. 2 normal Not Available [facility] ([facility]) [address] [facility], [place], [address], 09/20/2024 13:08:05 09/20/19 25 09/20/2024 CBC WITH DIFFE RENTI AL/PL ATELE T immature granulocytes 1 % not estab. Not Available [facility] ([facility]) [address] [facility], [place], [place], [id number], 09/20/2024 13:08:05 09/20/19 25 09/20/2024 CBC WITH DIFFE RENTI AL/PL ATELE T immature grans (abs) 0.0 x10e3 /uL 0.0-0. 1 Not Available [facility] ([facility]) [address] [facility], [place], [address], 09/20/2024 13:08:05 09/20/19 25 09/20/2024 CBC WITH DIFFE RENTI AL/PL ATELE T NRBC DIRECTOR TELEMETRY Not Available [facility] ([facility]) [address] [facility], [place], [address], 09/20/2024 13:08:05 09/20/19 25 09/20/2024 CBC WITH DIFFE RENTI AL/PL ATELE T hematology comments: DIRECTOR TELEMETRY Not Available [facility] ([facility]) [address] [facility], [place], [address], 09/20/2024 13:08:05 09/20/19 25 09/20/2024 COMP. METAB OLIC PANEL (14) glucose 90 mg/dL 70-99 normal Not Available [facility] ([facility]) [address] [facility] [place], [address], 09/20/2024 13:08:06 09/20/19 25 09/20/2024 COMP. METAB OLIC PANEL (14) BUN 21 mg/dL 8-27 normal Not Available [facility] ([facility]) [address] [place], [address], 09/20/2024 13:08:06 09/20/19 25 09/20/2024 COMP. METAB OLIC PANEL (14) creatinine 0.77 mg/dL 0.57-1 .00 normal Not Available [facility] ([facility]) [address] [place], [address], 09/20/2024 13:08:06 09/20/19 25 09/20/2024 COMP. METAB OLIC PANEL (14) eGFR 86 mL/mi n/1.7 3 >59 normal Not Available [facility] ([facility]) [address] [place], [address], 09/20/2024 13:08:06 09/20/19 25 09/20/2024 COMP. METAB OLIC PANEL (14) BUN/creatini ne ratio 27 12-28 normal Not Available [facility] ([facility]) [address] [facility] [place], [address], 09/20/2024 13:08:06 09/20/19 25 09/20/2024 COMP. METAB OLIC PANEL (14) sodium 139 mmol/ L 134-14 4 normal Not Available [facility] ([facility]) [address] [facility] [place], [address], 09/20/2024 13:08:06 09/20/19 25 09/20/2024 COMP. METAB OLIC PANEL (14) potassium 5.1 mmol/ L 3.5-5. 2 normal Not Available [facility] ([facility]) [address] [facility] [place], [address], 09/20/2024 13:08:06 09/20/19 25 09/20/2024 COMP. METAB OLIC PANEL (14) chloride 99 mmol/ L 96-106 normal Not Available [facility] ([facility]) [address] [facility] [place], [address], 09/20/2024 13:08:06 09/20/19 25 09/20/2024 COMP. METAB OLIC PANEL (14) carbon dioxide, total 23 mmol/ L 20-29 normal Not Available [facility] ([facility]) [address] [place], [address], 09/20/2024 13:08:06 09/20/19 25 09/20/2024 COMP. METAB OLIC PANEL (14) calcium 9.5 mg/dL 8.7-10 .3 normal Not Available [facility] ([facility]) [address] [place], [address], 09/20/2024 13:08:06 09/20/19 25 09/20/2024 COMP. METAB OLIC PANEL (14) protein, total 6.6 g/dL 6.0-8. 5 normal Not Available [facility] ([facility]) [address] [place], [address], 09/20/2024 13:08:06 09/20/19 25 09/20/2024 COMP. METAB OLIC PANEL (14) albumin 4.4 g/dL 3.9-4. 9 normal Not Available [facility] ([facility]) [address] [place], [address], 09/20/2024 13:08:06 09/20/19 25 09/20/2024 COMP. METAB OLIC PANEL (14) globulin, total 2.2 g/dL 1.5-4. 5 Not Available [facility] ([facility]) [address] [place], [address], 09/20/2024 13:08:06 09/20/19 25 09/20/2024 COMP. METAB OLIC PANEL (14) bilirubin, total <0.2 mg/dL 0.0-1. 2 Not Available [facility] ([facility]) [address] [place], [address], 09/20/2024 13:08:06 09/20/19 25 09/20/2024 COMP. METAB OLIC PANEL (14) alkaline phosphatase 91 IU/L 44-121 normal Not Available [facility] ([facility]) [address] [place], [address], 09/20/2024 13:08:06 09/20/19 25 09/20/2024 COMP. METAB OLIC PANEL (14) AST (SGOT) 16 IU/L 0-40 normal Not Available [facility] ([facility]) [address] [place], [address], 09/20/2024 13:08:06 09/20/19 25 09/20/2024 COMP. METAB OLIC PANEL (14) ALT (SGPT) 17 IU/L 0-32 normal Not Available [facility] ([facility]) [address] [place], [address], 09/20/2024 13:08:06 09/20/19 25 09/20/2024 IRON AND TIBC iron bind.cap.(TI BC) 365 ug/dL 250-45 0 normal Not Available [facility] ([facility]) [address] [place], [address], 09/20/2024 13:08:07 09/20/19 25 09/20/2024 IRON AND TIBC UIBC 306 ug/dL 118-36 9 normal Not Available [facility] ([facility]) [address] [place], [address], 09/20/2024 13:08:07 09/20/19 25 09/20/2024 IRON AND TIBC iron 59 ug/dL 27-139 normal Not Available [facility] ([facility]) [address] [place], [address], 09/20/2024 13:08:07 09/20/19 25 09/20/2024 IRON AND TIBC iron saturation 16 % 15-55 normal Not Available [facility] ([facility]) [address] [facility], [place], [address], 09/20/2024 13:08:07 09/20/19 25 09/20/2024 VITAM IN B12 AND FOLAT E vitamin B12 427 pg/mL 232-12 45 normal Not Available [facility] ([facility]) [address] [facility], [place], [address], 09/20/2024 13:08:08 09/20/19 25 09/20/2024 VITAM IN B12 AND FOLAT E folate (folic acid), serum 9.7 NG/mL >3.0 normal A serum folat e armida ntrat ion of less than 3.1 ng/mL is consi dered to repre sent clini ivon defic iency . Not Available [facility] ([facility]) [address] [facility], [place], [address], 09/20/2024 13:08:08 09/20/19 25 09/20/2024 CREAT INE KINAS E,TOT AL creatine kinase,total 224 U/L 32-182 above high normal Not Available [facility] ([facility]) [address] [facility], [place], [address], 09/20/2024 13:08:08 09/20/19 25 09/20/2024 MAGNE SIUM magnesium 2.2 mg/dL 1.6-2. 3 normal Not Available [facility] ([facility]) [address] [facility], [place], [address], 09/20/2024 13:08:09 07/11/19 25 07/05/2024 , [facility] ardio gram No observ ation record ed. [address], [place], [address], 07/10/2024 15:10:41 09/27/19 25 LDCT, chest , for lung cance r scree brian No observ ation record ed. [email or web address], [address], 09/27/2024 15:05:49 Result Notes None recorded. Problems Name Problem SNOMED Code Status Onset Date Resolution Date Notes Provider Name and Address Organization Details Recorded Time Suspecte d COVID-19 780515624 Completed 05/19/2020 Removal Reason: Problem added by user [email or web address] from the COVID-19 watch flag Nilda Salazar null, [place] - [facility] 1 12:16:23 Asthma 656645366 Completed 201503/11/2019 Serene Rodriguez [place] - [facility] 9 12:05:51 Chronic obstruct lisset pulmonar y disease 26833384 Active 2015 Nilda Torresrod [place] [facility] 0 14:16:06 History of depressi on 534941433 Completed 201508/03/2017 Serene Rodriguez [place] [facility] 8 13:45:42 Low back pain 639465433 Completed 201508/18/2020 Serene [place] [facility] 1 12:12:43 Tobacco user 286202798 Active 2015 Nilda Salazar [place] [facility] 0 14:16:06 Stented coronary artery 933357985 Active 2016 Rafael Whatley MD [address], [place], [address] , [place] - [facility] 3 12:52:47 Depressi ve disorder 18343444 Completed 201803/11/2019 Serene Rodriguez [place] [facility] 9 12:05:26 Chronic depressi on 583350137 Active 2018 Rafael Whatley MD [address], [place], [address] , [place] [facility] 3 12:52:36 Otitis media 77271641 Completed 201906/25/2019 Serene Rodriguez angelica, [place] - [facility] 0 14:28:46 Benign hyperten mey 77710493 Active 2020 Rafael Whatley MD [address], [place], [address] , [place] [facility] 3 12:52:30 Chronic back pain 472600252 Active 2020 Rafael Whatley MD [address], [place], [address] , [place] [facility] 3 12:52:33 COVID-19 290493117 Completed 202106/29/2021 Nilda Meneses RN [address], [place], [address] , [place] [facility] 2 11:53:20 Mixed hyperlip idemia 373059051 Active 2021 Rafael Whatley MD [address], [place], [address] , [place] [facility] 3 12:52:41 Arthriti s of right knee joint 68032933665 [address] Active 2021 Rafael Whatley MD [address], [place], [address] , [place] [facility] 3 12:52:27 Pain in right foot 42405060988 9107 Active 2021 Alyssa Olson, MENTAL HEALTH NURSE PRACTITIONER [address], [place], [address] , [place] [facility] 2 15:53:47 Pain of right knee joint 25607866029 4100 Active 2021 Alyssa Olson, MENTAL HEALTH NURSE PRACTITIONER [address], [place], [address] , [place] [facility] 2 15:53:59 Prediabe sharif 247740138 Active 2024 Juwan Gomes PA-C [address], [place], [address] , [place] [facility] 5 14:15:53 Insomnia 138216465 Active 2024 Juwan Gomes PA-C [address], [place], [address] , [place] [facility] 5 14:15:59 Spasm 72264836 Active 2024 Juwan Gomes PA-C [address], [place], [address] , [place] - [facility] 5 14:16:03 Tobacco dependen ce caused by cigarett es 84218195703 400811 Active 2024 Juwan Gomes PA-C [address], [place], [address] , [place] [facility] 5 10:14:09 Cramp in lower limb 987373385 Active 2024 Juwan Gomes PA-C [address], [place], [address] , [place] [facility] 5 10:36:33 Body mass index 30+ - obesity 644731983 Active 2024 Juwan Gomes PA-C [address], [place], [address] , [place] [facility] 5 10:38:18 Acute exacerba tion of chronic obstruct lisset pulmonar y disease 902983782 Active 2024 Juwan Gomes PA-C [address], [place], [address] , [place] - [facility] 5 10:41:45 Nodule of lung 003292803 Active 2024 Juwan Gomes PA-C [address], [place], [address] , [place] [facility] 5 16:06:52 Problem Notes None recorded. Procedures Surgical History Date Name Laterality Status Provider Name and Address Organization Details Recorded Time 12/25/19 24 total knee replacement completed Crystal Marie [place] - [facility] 01/03/2024 08:41:46 09/08/19 24 Joint Injection completed Rafael Whatley MD [address], [place], [address], [place] [facility] 09/08/2023 12:04:18 07/18/19 24 Advance Care Planning completed Cristian Alvarez [place] [facility] 07/17/2023 14:45:59 07/18/19 24 Functional Status Assessed completed Cristian Alvarez [place] [facility] 07/17/2023 14:45:59 04/28/19 24 Knee Surgery [place] Kayla uHi [place] [facility] 07/21/2023 13:28:09 11/08/19 23 Joint Injection completed Rafael Whatley MD [address], [place], [address], [place] [facility] 11/07/2022 17:55:58 08/20/19 Joint Injection completed Rafael Whatley MD [address], [place], [address], [place] [facility] 08/19/2022 11:03:03 05/02/19 23 Joint Injection completed Rafael Whatley MD [address], [place], [address], [place] [facility] 05/02/2022 11:28:15 03/11/20 22 Joint Injection completed Rafael Whatley MD [address], [place], [address], [place] [facility] 03/16/2022 14:13:57 12/16/19 22 Medication Reconcilliation completed Crystal Marie [place] [facility] 12/15/2021 10:33:53 04/19/19 22 Medication Reconcilliation completed Vandana Mary [place] [facility] 04/19/2021 15:35:43 09/27/19 20 Systolic B/P less than 130 mm Hg completed Crystal Marie [place] [facility] 09/27/2019 15:59:44 09/27/19 20 Diastolic B/P less than 80 mm Hg completed Crystal Marie [place] [facility] 09/27/2019 15:59:46 06/25/19 20 Systolic B/P less than 130 mm Hg completed Crystal Marie [place] [facility] 06/25/2019 14:11:59 06/25/19 20 Diastolic B/P less than 80 mm Hg completed Crystal Marie [place] [facility] 06/25/2019 14:12:01 03/11/20 19 Systolic B/P less than 130 mm Hg completed Crystal Marie [place] [facility] 03/11/2019 11:50:58 03/11/20 19 Diastolic B/P less than 80 mm Hg completed Crystal Marie [place] [facility] 03/11/2019 11:51:01 11/01/19 17 Advance Care Planning completed Leeanne Russ [place] [facility] 10/31/2016 10:00:44 09/07/19 17 Endoscopy completed Nilda Meneses RN [address], [place], [address], [place] [facility] 09/07/2018 16:44:54 08/23/19 17 Cataract Surgery completed Kayla Staples [place] [facility] 08/03/2017 13:22:15 03/14/19 84 cholecystectomy completed Serene Rodriguez [place] - [facility] 08/18/2020 12:06:10 Stress test completed [place]layaneth Hui [place] [facility] 07/21/2023 13:28:09 Cardiac Cath completed Kayla Hui [place] [facility] 07/21/2023 13:28:09 Imaging Results None recorded. Procedure Notes None recorded. Medical Equipment None Reported. Allergies Allergen ID Allergen Name Allergen Category Reaction Reaction Severity Criticality Documentation Date Start Date Code Code System Note Provider Name and Address Organization Details Recorded Time 90983 Antivert medicatio n hives Not available Not available 01/15/20162008 97391 RxNorm Not Available [facility] 6 09:55:50 Medications Name Sig Start Date Stop Date Status Note LastModified by Organization Details LastModified Time losartan 50 mg tablet TAKE ONE (1) TABLET BY MOUTH EVERY DAY active Not Available Not Available No t Available cyclobenz aprine 10 mg tablet TAKE ONE (1) TABLET THREE (3) TIMES A DAY BY ORAL ROUTE FOR 15 DAYS. 03/11 completed Not Available Not Available Not Available furosemid e 40 mg tablet TAKE ONE (1) TABLET EVERY DAY BY ORAL ROUTE DIRECTED . active Not Available Not Available No t Available atorvasta tin 40 mg tablet 10/31 completed Not Available Not Available Not Available methocarb tunde 500 mg tablet TAKE ONE (1) TABLET BY MOUTH THREE (3) TIMES DAILY active Not Available Not Available No t Available metformin 500 mg tablet TAKE 1 TABLET BY MOUTH EVERY DAY active Not Available Not Available No t Available bupropion HCl SR 150 mg tablet,12 hr sustained -release 10/31 completed Not Available Not Available Not Available prednison e 10 mg tablet TAKE ONE TABLET BY MOUTH FOUR (4) TIMES DAILY FOR TWO (2) DAYS, ONE (1) TAB THREE (3) TIMES DAILY FOR TWO (2) DAYS, ONE (1) TAB TWICE DAILY FOR TWO (2) DAYS, THEN ONE (1) TAB DAILY FOR FOUR (4) DAYS UNTIL COMPLETE D 09/07 completed Not Available Not Available Not Available paroxetin e 10 mg tablet TAKE ONE (1) TABLET BY MOUTH EVERY DAY active Not Available Not Available No t Available nicotine 14 mg/24 hr daily transderm al patch 10/31 completed Not Available Not Available Not Available ipratropi um 0.5 mg-albute rol 3 mg (2.5 mg base)/3 mL nebulizat ion soln INHALE THREE (3) ML FOUR (4) TIMES A DAY BY NEBULIZA TION ROUTE NEEDED. 2024 active Not Available Not Available Not Avai lable albuterol sulfate 2.5 mg/3 mL (0.083 %) solution for nebulizat ion INHALE ONE (1) VIAL VIA NEBULIZE R EVERY FOUR (4) HOURS NEEDED active Not Available Not Available No t Available Stool Softener 100 mg capsule TAKE ONE CAPSULE THREE TIMES A DAY WHILE ON PAIN MEDS active Not Available Not Available No t Available azithromy ankit 250 mg tablet TAKE TWO (2) TABLETS BY MOUTH TODAY, THEN ONE (1) TABLET DAILY FOR 4 DAYS active Not Available Not Available No t Available ibuprofen 800 mg tablet TAKE ONE (1) TABLET THREE (3) TIMES A DAY BY ORAL ROUTE AFTER MEAL(S) FOR 30 DAYS. active Not Available Not Available No t Available tizanidin e 4 mg tablet Take 1 tablet twice a day by oral route for 30 days. 03/08 completed Not Available Not Available Not Available fluconazo le 150 mg tablet Take 1 tablet every day by oral route for 7 days. 10/31 completed Not Available Not Available Not Available hydrocodo ne 5 mg-acetam inophen 325 mg tablet TAKE ONE (1) TABLET THREE (3) TIMES A DAY BY ORAL ROUTE AFTER MEAL(S) FOR 7 DAYS, FOR POST-OP KNEE PAIN. 05/24 completed Not Available Not Available Not Available Celestone Soluspan 6 mg/mL suspensio n for injection Take 6 mg by injectio n route. 06/24 completed Not Available Not Available Not Available meloxicam 15 mg tablet TAKE ONE (1) TABLET BY MOUTH ONCE DAILY active Not Available Not Available No t Available sucralfat e 1 gram tablet TAKE ONE (1) TABLET FOUR (4) TIMES A DAY BY ORAL ROUTE FOR 15 DAYS. 01/11 completed Not Available Not Available Not Available bupivacai ne HCl 0.5 % (5 mg/mL) injection solution Take 35 mg by injectio n route. 11/30 completed Not Available Not Available Not Available prednison e 20 mg tablet TAKE ONE (1) TABLET BY MOUTH TWICE DAILY FOR 5 DAYS, THEN DAILY FOR 5 DAYS active Not Available Not Available No t Available spironola ctone 100 mg tablet TAKE ONE (1) TABLET BY MOUTH EVERY DAY active Not Available Not Available No t Available permethri n 5 % topical cream APPLY (THOROUG HLY MASSAGE INTO SKIN FROM HEAD TO SOLES OF FEET) BY TOPICAL ROUTE ONCE LEAVE ON FOR 8-14 HR, THEN REMOVE BY THOROUGH WASHING 12/05 completed Not Available Not Available Not Available promethaz ine 6.25 mg-codein e 10 mg/5 mL syrup Take 5 mL every 6 hours by oral route. 06/24 completed Not Available Not Available Not Available potassium chloride ER 10 mEq tablet,ex tended release TAKE ONE (1) TABLET EVERY DAY BY ORAL ROUTE DIRECTED . active Not Available Not Available No t Available acetamino phen 300 mg-codein e 30 mg tablet TAKE ONE (1) TABLET THREE (3) TIMES A DAY BY ORAL ROUTE AFTER MEALS FOR 30 DAYS. 05/24 completed Not Available Not Available Not Available clopidogr el 75 mg tablet TAKE ONE (1) TABLET BY MOUTH EVERY DAY active Not Available Not Available No t Available hydrocodo ne 10 mg-acetam inophen 325 mg tablet TAKE ONE (1) TABLET THREE (3) TIMES A DAY BY ORAL ROUTE AFTER MEAL(S) FOR 30 DAYS. 07/25 completed Not Available Not Available Not Available omeprazol e 40 mg capsule,d elayed release TAKE ONE (1) CAPSULE BY MOUTH EVERY DAY NEEDED 09/03 completed Not Available Not Available Not Available aspirin 81 mg tablet,de layed release TAKE 1 TABLET BY MOUTH TWICE DAILY active Not Available Not Available No t Available tramadol 50 mg tablet take 1 tablet (50 mg) by oral route every 4-6 hours as needed 02/08 completed tramadol 50 mg oral tablet;R ecorded Status: Recorded on: 09/08/19 16 11:34AM; User: gored Not Available Not Available Not Available triamcino lone acetonide 0.1 % topical cream 07/06 completed Not Available Not Available Not Available amoxicill in 500 mg tablet take 1 tablet (500 mg) by oral route every 8 hours for 10 days 09/26 completed amoxicil asael 500 mg oral tablet;R ecorded Status: Recorded on: 08/28/19 10 10:01AM; Disconti nued Status: Disconti nued on: 09/27/19 12 3:49PM;U ser: [email or web address] ;Est. Completi on: 09/07/19 10;Indic ation: Pharyngi tis - (46);Prin deangelo: 08/28/19 10 Not Available Not Available Not Available Depo-Medr ol 80 mg/mL suspensio n for injection Take 80 mg by injectio n route. 05/17 completed Not Available Not Available Not Available cefadroxi l 500 mg capsule TAKE 1 CAPSULE (500 MG) BY MOUTH TWICE DAILY 05/24 completed Not Available Not Available Not Available meloxicam 7.5 mg tablet TAKE ONE (1) TABLET (7.5 MG) BY ORAL ROUTE TWICE DAILY FOR 30 DAYS 07/17 completed Not Available Not Available Not Available oxycodone -acetamin ophen 5 mg-325 mg tablet TAKE 1 TABLET BY MOUTH EVERY FOUR (4) HOURS NEEDED FOR PAIN 05/24 completed Not Available Not Available Not Available terbinafi ne HCl 250 mg tablet Take 1 tablet every day by oral route for 90 days. 08/18 completed Not Available Not Available Not Available ceftriaxo ne 1 gram solution for injection Take 1 g by injectio n route. 07/08 completed Not Available Not Available Not Available citalopra m 20 mg tablet take 1/2 tablet by oral route once daily for 8 days then 1 qd 06/01 completed citalopr am 20 mg oral tablet;R ecorded Status: Recorded on: 05/09/19 09 10:40AM; Disconti nued Status: Disconti nued on: 06/01/19 10 3:49PM;U ser: [email or web address] ;Indicat ion: Depressi on - ();Prin deangelo: 05/09/19 09 Not Available Not Available Not Available potassium chloride ER 20 mEq tablet,ex tended release(p art/cryst ) TAKE ONE (1) TABLET EVERY DAY BY ORAL ROUTE FOR 30 DAYS. 02/03 completed Not Available Not Available Not Available amitripty line 25 mg tablet take 1 tablet (25 mg) by oral route once daily at bedtime 08/27 completed amitript yline 25 mg oral tablet;R ecorded Status: Recorded on: 06/01/19 10 3:49PM;D iscontin ued Status: Disconti nued on: 08/28/19 10 9:53AM;U ser: [email or web address] Not Available Not Available Not Available prednisol one acetate 1 % eye drops,luis pension 02/08 completed Not Available Not Available Not Available methocarb tunde 750 mg tablet TAKE ONE (1) TABLET THREE (3) TIMES A DAY BY ORAL ROUTE NEEDED FOR 15 DAYS. 03/11 completed Not Available Not Available Not Available gentamici n 0.3 % eye drops INSTILL 2 DROP INTO AFFECTED EYE(S) BY OPHTHALM IC ROUTE EVERY 4 HOURS 10/31 completed Not Available Not Available Not Available trazodone 100 mg tablet TAKE ONE TABLET BY MOUTH DAILY NEEDED BEFORE BED active Not Available Not Available No t Available triamcino lone acetonide 40 mg/mL suspensio n for injection Take 40 mg by injectio n route. 11/30 completed Not Available Not Available Not Available cephalexi n 500 mg capsule TAKE ONE (1) CAPSULE TWICE A DAY BY ORAL ROUTE FOR 10 DAYS. 06/12 completed Not Available Not Available Not Available pantopraz ole 40 mg tablet,de layed release TAKE ONE (1) TABLET BY MOUTH EVERY DAY active Not Available Not Available No t Available trazodone 150 mg tablet TAKE ONE (1) TABLET BY MOUTH EVERY NIGHT AT BEDTIME active Not Available Not Available No t Available oseltamiv ir 75 mg capsule Take 1 capsule twice a day by oral route for 5 days. 05/17 completed Not Available Not Available Not Available nystatin 100,000 unit/gram topical cream 02/08 completed Not Available Not Available Not Available clotrimaz ole-betam ethasone 1 %-0.05 % topical cream APPLY TO THE AFFECTED AND SURROUND ING AREAS OF SKIN BY TOPICAL ROUTE 2 TIMES PER DAY IN THE MORNING AND EVENING FOR 2 WEEKS 08/18 completed Not Available Not Available Not Available promethaz ine 25 mg tablet TAKE ONE (1) TABLET BY MOUTH EVERY SIX (6) HOURS NEEDED FOR NAUSEA FOR UP TO 20 DOSES. 11/30 completed Not Available Not Available Not Available nicotine 21 mg/24 hr daily transderm al patch Apply 1 patch every day by transder mal route, for smoking cessatio n; apply 14 mg patch qd x6wk, then apply 7 mg patch qd x2wk; Info: stop cigarett e use at tx onset. 2024 active Not Available Not Available Not Avai lable nystatin- triamcino lone 100,000 unit/g-0. 1 % topical cream apply to the affected area(s) by topical route 2 times per day in the morning and evening for 30 days 02/08 completed nystatin -triamci nolone 100,000- 0.1 unit/g-% topical cream;Pr escribe Status: Prescrib ed on: 11/09/19 16 4:18PM;U ser: [email or web address];Es t. Completi on: 03/08/20 16;Pharm acyVerif ied: 11/09/19 16 4:18PM Not Available Not Available Not Available omeprazol e 20 mg capsule,d elayed release take 1 capsule (20 mg) by oral route once daily before a meal for 30 days 10/31 completed Not Available Not Available Not Available diclofena c sodium 75 mg tablet,de layed release Take 1 tablet twice a day by oral route for 20 days. 07/06 completed Not Available Not Available Not Available hydrocort isone 2.5 % topical cream APPLY A THIN LAYER TO THE AFFECTED AREA(S) BY TOPICAL ROUTE 2 TIMES PER DAY as needed 08/03 completed Not Available Not Available Not Available bisacodyl 5 mg tablet,de layed release TAKE TWO (2) TABLETS EVERY DAY BY ORAL ROUTE AFTER A MEALFOR 10 DAYS. 05/24 completed Not Available Not Available Not Available hydrochlo rothiazid e 25 mg tablet TAKE ONE (1) TABLET BY MOUTH EVERY DAY 03/11 completed Not Available Not Available Not Available furosemid e 20 mg tablet TAKE ONE (1) TABLET EVERY DAY BY ORAL ROUTE NEEDED FOR 30 DAYS. 12/15 completed Not Available Not Available Not Available Levaquin 500 mg tablet take 1 tablet (500 mg) by oral route once daily for 7 days 06/28 completed Levaquin 500 mg oral tablet;P rescribe Status: Prescrib ed on: 05/05/19 16 3:38PM;D iscontin ued Status: Disconti nued on: 06/29/19 16 1:13PM;U ser: gored;Es t. Completi on: 05/12/19 16;Pharm acyVerif ied: 05/05/19 16 3:38PM Not Available Not Available Not Available metoprolo l succinate ER 25 mg tablet,ex tended release 24 hr TAKE ONE (1) TABLET BY MOUTH EVERY DAY active Not Available Not Available No t Available ergocalci ferol (vitamin D2) 1,250 mcg (50,000 unit) capsule TAKE ONE (1) CAPSULE EVERY WEEK BY ORAL ROUTE FOR 90 DAYS. active Not Available Not Available No t Available ibuprofen 600 mg tablet TAKE ONE (1) TABLET TWICE A DAY BY ORAL ROUTE WITH MEALS. 07/17 completed Not Available Not Available Not Available methylpre dnisolone 4 mg tablets in a dose pack TAKE DIRECTED 02/27 completed Not Available Not Available Not Available colchicin e 0.6 mg tablet 1.2 mg PO x1, then 0.6 mg PO 1h later x1 08/18 completed Not Available Not Available Not Available ketorolac 60 mg/2 mL intramusc ular solution Inject 60 mg every 6 hours by intramus cular route. 11/30 completed Not Available Not Available Not Available hydroxyzi ne HCl 10 mg tablet Take 1 tablet 4 times a day by oral route as needed. 08/03 completed Not Available Not Available Not Available cefdinir 300 mg capsule Take 1 capsule every 12 hours by oral route for 10 days. 05/17 completed Not Available Not Available Not Available etodolac 500 mg tablet TAKE 1 TABLET BY MOUTH TWICE DAILY 11/30 completed Not Available Not Available Not Available fluoxetin e 20 mg capsule take 2 capsules (40 mg) by oral route once daily in the morning 08/27 completed fluoxeti ne 20 mg oral capsule; Recorded Status: Recorded on: 06/01/19 10 3:49PM;D iscontin ued Status: Disconti nued on: 08/28/19 10 9:53AM;U ser: [email or web address] Not Available Not Available Not Available Augmentin 500 mg-125 mg tablet take 1 tablet by oral route bid 05/05 completed Augmenti n 500-125 mg oral tablet;P rescribe Status: Prescrib ed on: 04/14/19 16 1:39PM;D iscontin ued Status: Disconti nued on: 05/05/19 16 2:52PM;U ser: gored;Es t. Completi on: 04/24/19 16;Pharm acyVerif ied: 04/14/19 16 1:39PM Not Available Not Available Not Available naproxen 500 mg tablet TAKE 1 TABLET BY MOUTH TWICE DAILY NEEDED 03/11 completed Not Available Not Available Not Available diazepam 5 mg tablet TAKE 1/2-1 TABLET BY MOUTH EVERY AT BEDTIME NEEDED 12/30 completed Not Available Not Available Not Available amoxicill in 875 mg-potass ium clavulana te 125 mg tablet TAKE ONE (1) TABLET EVERY 12 HOURS BY ORAL ROUTE FOR 7 DAYS. 05/24 completed Not Available Not Available Not Available nicotine 7 mg/24 hr daily transderm al patch 10/31 completed Not Available Not Available Not Available Ventolin HFA 90 mcg/actua tion aerosol inhaler Inhale 2 puffs every 4 hours by inhalati on route. active Not Available Not Available No t Available oxycodone 5 mg tablet TAKE ONE (1) TABLET BY MOUTH EVERY FOUR (4) HOURS NEEDED FOR MAJOR SURGERY/ TRAUMA FOR UP TO 30 DOSES. 06/12 completed Not Available Not Available Not Available Yrn Low Strength 81 mg tablet,de layed release Take 1 tablet every day by oral route. active Not Available Not Available No t Available Bactrim DS 800 mg-160 mg tablet take 1 tablet by oral route 2 times per day for 10 days 07/06 completed Bactrim DS 800-160 mg oral tablet;R ecorded Status: Recorded on: 09/27/19 12 4:09PM;D iscontin ued Status: Disconti nued on: 04/17/19 13 1:19PM;U ser: keefk;Es t. Completi on: 10/07/19 12;Print ed: 09/27/19 12 Not Available Not Available Not Available azithromy ankit 500 mg tablet TAKE 1 TABLET BY MOUTH EVERY DAY FOR 3 DAYS 07/08 completed Not Available Not Available Not Available escitalop pilar 10 mg tablet Take 1 tablet every day by oral route for 30 days. 06/24 completed Not Available Not Available Not Available nicotine (polacril ex) 4 mg buccal lozenge Take 1 tablet every 2 hours by oral route as needed. 2024 active Not Available Not Available Not Avai lable rosuvasta tin 5 mg tablet TAKE ONE (1) TABLET BY MOUTH EVERY DAY active Not Available Not Available No t Available Lexapro 5 mg tablet Take 1 tablet every day by oral route for 30 days. 01/08 completed Not Available Not Available Not Available hydrocodo ne 7.5 mg-acetam inophen 325 mg/15 mL oral solution 01/20 completed Not Available Not Available Not Available albuterol sulfate concentra te 2.5 mg/0.5 mL solution for nebulizat ion Inhale 3 mL by nebuliza tion route. 08/03 completed Not Available Not Available Not Available diclofena c 1 % topical gel APPLY TO AFFECTED AREA FOUR (4) GRAMS FOUR (4) TIMES DAILY active Not Available Not Available No t Available Effient 10 mg tablet Take 1 tablet every day by oral route. 08/03 completed Not Available Not Available Not Available Solu-Medr ol (PF) 125 mg/2 mL solution for injection Take 125 mg by injectio n route. 07/08 completed Not Available Not Available Not Available Chantix Starting Month Box 0.5 mg (11)-1 mg (42) tablets in dose pack use as directed 07/06 completed Not Available Not Available Not Available Breo Ellipta 100 mcg-25 mcg/dose powder for inhalatio n INHALE ONE (1) PUFF EVERY DAY active Not Available Not Available No t Available potassium chloride ER 20 mEq tablet,ex tended release Take 1 tablet every day by oral route for 30 days. 07/17 completed Not Available Not Available Not Available Anoro Ellipta 62.5 mcg-25 mcg/actua tion powder for inhalatio n INHALE ONE (1) PUFF BY MOUTH EVERY DAY active Not Available Not Available No t Available guaifenes in ER 600 mg tablet, extended release 12 hr Take 1 tablet every 12 hours by oral route for 30 days. 06/24 completed Not Available Not Available Not Available Contrave 8 mg-90 mg tablet,ex tended release TAKE ONE TABLET ONCE DAILY FOR 1 WEEK THEN 1 TWICE A DAY FOR 7 DAYS, THEN 2 IN THE AM AND 1 IN THE PM FOR 7 DAYS THEN TAKE 2 TWICE DAILY THE 11/02 completed Not Available Not Available Not Available Saxenda 3 mg/0.5 mL (18 mg/3 mL) subcutane ous pen injector Start: 0.6 mg SC qd x1wk, then may incr. dose by 0.6 mg/day qwk; Max: 3 mg/day; Info: retitrat e from 0.6 mg SC qd if tx interrup deangelo for >3 days 08/07 completed Not Available Not Available Not Available Vitals Date Recorded Body height Body mass index (BMI) Body weight Body temperature Oxygen saturation Oxygen saturation in Arterial blood by Pulse oximetry Heart rate Respiratory rate Systolic And Diastolic Provider Name and Address Organization Details Last Updated DateTime 5 160.02 cm 37.7 kg/m2 76711.1 7 g 97.3 [degF] 96 % 96 % 79 /min 18 /min 118/70 mm[Hg] Katya valentino [place] - [facility] 5 13:10:09 Date Recorded Body height Body mass index (BMI) Body weight Heart rate Oxygen saturation Oxygen saturation in Arterial blood by Pulse oximetry Systolic And Diastolic Provider Name and Address Organization Details Last Updated DateTime 5 160.02 cm 39 kg/m2 09005.0 2 g 84 /min 96 % 96 % 116/74 mm[Hg] Saima Castillo [facility] 5 10:58:25 Date Recorded Body height Body mass index (BMI) Body weight Heart rate Oxygen saturation Oxygen saturation in Arterial blood by Pulse oximetry Systolic And Diastolic Provider Name and Address Organization Details Last Updated DateTime 5 160.02 cm 38.6 kg/m2 68622.1 4 g 83 /min 96 % 96 % 120/78 mm[Hg] Saima Castillo [facility] 5 13:14:25 Date Recorded Body height Body mass index (BMI) Body weight Heart rate Oxygen saturation Oxygen saturation in Arterial blood by Pulse oximetry Systolic And Diastolic Provider Name and Address Organization Details Last Updated DateTime 5 160.02 cm 39.3 kg/m2 534063. 51 g 86 /min 96 % 96 % 122/80 mm[Hg] Saima Castillo [facility] 5 09:53:07 Social History Question Answer Notes LastModified by [employer] [place] Details LastModified Time Tobacco Smoking Status Current Every Day Smoker CLAUDIA Delacruz [facility] 03/11/2019 11:49:26 Able To Swim? Yes Informati on not available 10/31/2016 Do You Have An Advance Directive? No [email or web address] Information not available 10/31/2016 Do You Wear A Helmet When Biking? Yes [email or web address] Information not available 10/31/2016 Are You Blind Or Do You Have Difficulty Seeing? No [email or web address] Information not available 10/31/2016 Is Blood Transfusion Acceptable In An Emergency? No Information not available 07/21/2023 What Is Your Level Of Caffeine Consumption? Moderate [email or web address] Information not available 10/31/2016 How Much Tobacco Do You Chew? None Information not available 07/21/2023 Are You Deaf Or Do You Have Serious Difficulty Hearing? No [email or web address] Information not available 10/31/2016 What Type Of Diet Are You Following? REGULAR [email or web address] Information not available 10/31/2016 Which Illicit Or Recreational Drugs Have You Used? Denies [email or web address] Information not available 10/31/2016 What Is The Highest Grade Or Level Of School You Have Completed Or The Highest Degree You Have Received? [id number] Information not available 07/21/2023 Swimming/diving Yes [email or web address] Informa tion not available 10/31/2016 Have There Been Any Changes To Your Family Or Social Situation? No Information no t available 11/07/2022 What Is The Fluoride Status Of Your Home? Unknown Information not available 11/07/2022 Hard Of Hearing Or Deaf In One Or Both Ears? No [email or web address] Information not available 10/31/2016 Single Or Multi-level Home/work? Single Level Home [email or web address] Information not available 10/31/2016 Legally Blind In One Or Both Eyes? No [email or web address] Information no t available 10/31/2016 Live Alone Or With Others? With Others Information not available 10/31/2016 Marital Status Single [email or web address] Informat ion not available 10/31/2016 Do You Have A Medical Power Of Trawl Net Maker? No Information not available 11/07/2022 What Was The Date Of Your Most Recent Tobacco Screening? 09/19/2024 [email or web address] Information not available 09/19/2024 How Many Children Do You Have? 2 [email or web address] Information not available 10/31/2016 What Is Your Current Pack Years? [email or web address] Information not available 03/11/2022 What Is Your Relationship Status? Information not available 07/21/2023 Do You Use Your Seat Belt Or Car Seat Routinely? Yes Information not available 07/21/2023 Seat Belts Used Routinely Yes [email or web address] Information not available 10/31/2016 Are You Sexually Active? No Information not available 11/07/2022 Smoke Alarm In Home Yes [email or web address] Information not available 10/31/2016 Do You Have Smoke And Carbon Monoxide Detectors In Your Home? No Information not available 11/07/2022 At What Age Did You Start Smoking Tobacco? 15 Information not available 03/11/2022 Are You Passively Exposed To Smoke? No Information no t available 11/07/2022 How Much Tobacco Do You Smoke? 1 PPD Information not available 03/11/2022 Do You Use Sunscreen Routinely? Yes [email or web address] Information not available 10/31/2016 Has Tobacco Cessation Counseling Been Provided? Yes [email or web address] Information not available 10/31/2016 On What Date Was Tobacco Cessation Counseling Provided? 09/19/2024 [email or web address] Information not available 09/19/2024 How Many Years Have You Smoked Tobacco? 47 Information not available 06/13/2023 Do You Have Difficulty Walking Or Climbing Stairs? No [email or web address] Information not available 10/31/2016 Sex: Female Functional Status Question Answer Note LastModified by Organizat ion Details LastModified Time Do you or have you ever used smokeless tobacco? Never used smokeless tobacco Information not available 07/21/2023 Are you currently employed? No disabled Information not available 11/07/2022 Do you have transportation difficulties? No Information not available 11/07/2022 Urinary incontinence assessment performed? Yes [email or web address] Information not available 10/31/2016 Are you able to care for yourself independently? Yes [email or web address] Information not available 10/31/2016 Do you have difficulty dressing, bathing, grooming, or toileting? No [email or web address] Information not available 10/31/2016 Do you or have you ever used e-cigarettes or vape? Never used electronic cigarettes Information not available 07/21/2023 What is your exercise level? None [email or web address] Information not available 10/31/2016 Do you use any illicit or recreational drugs? No Information not available 11/07/2022 Do you or have you ever used any other forms of tobacco or nicotine? No Information not available 11/07/2022 What is your level of alcohol consumption? None [email or web address] Information not available 10/31/2016 Are you able to walk independently without assistance or assistive devices? YESWOREST [email or web address] Information not available 10/31/2016 Do you have difficulty doing errands alone? No [email or web address] Information not available 10/31/2016 Mental Status Question Answer Note LastModified by Organizat ion Details LastModified Time Do you feel stressed (tense, restless, nervous, or anxious, or unable to sleep at night)? [id number] Information not available 11/07/2022 Do you have difficulty concentrating, remembering or making decisions? No [email or web address] Information no t available 10/31/2016 Family History Relationship Description Onset Age of this Age Resolved Age Notes LastModified by Organization Details LastModified Time Paternal Grandfather Asthma [email or web address] Not available 01/20 08:20:49 Paternal Grandfather Myocardial infarction Not available 07/20 13:28:06 Unspecified Relation Pulmonary emphysema Not available 2023 13:28:07 Unspecified Relation Arthritis Not available 07/20 13:28:07 Father Hypertensive disorder [email or web address] Not available 2015 08:21:31 Father Endometrial carcinoma Not available 2023 13:28:07 Father Malignant neoplastic disease Not available 2023 13:28:07 Maternal Grandfather Myocardial infarction Not available 07/20 13:28:07 Brother Stented artery Not available 2023 13:28:07 Brother Gastric ulcer Not available 2023 13:28:07 Brother Chronic obstructive pulmonary disease [email or web address] Not available 2017 13:23:35 Paternal Uncle Malignant neoplasm of colon Not available 2023 13:28:07 Medical History Condition Response Depression Y COPD Y Arthritis Y Asthma Y Heart Disease Y Hypertension Y Gynecological History Statement/Question Response If Post Menopausal, Age at Menopause 46 Date of LMP 07/19/2003 Sexually Active? N Menses Monthly N Date of Last Pap Smear Current Control Method None Most Recent Mammogram Hormone Replacement Therapy N Obstetrics History GPAL:G 0 P 0 0 0 0 Immunizations Vaccine Type Date Status Note Provider Name and Address Organization Details Recorded Time Tdap 11/01/19 17 completed Not Available [facility] 04/27/2019 03:54:32 Td (adult), 2 Lf tetanus toxoid, preservative free, adsorbed 06/20/18 97 completed CLAUDIA Cross - [facility] 04/18/2022 15:27:58 Influenza, split virus, quadrivalent, preservative 03/11/20 19 cancelled patient objection Not Available [facility] 04/27/2019 03:56:16 Past Encounters Encounter ID Performer Location Encounter Start Date Encounter Closed Date Diagnosis/Indication Diagnosis SNOMED-CT Code Diagnosis ICD10 Code Diagnosis IMO Codes Diagnosis Note [id number] Irineo Burrows MD [facility] [address] [place], [place] [address] [place] [address] 01/21/2016 08:17:30 01/22/2016 09:01:18 Low back pain 749612452 M54.5 Acute urin ina tract infection 944570661 N39.0 Acute low back pain 2788 38525 M54.5 [id number] Irineo Burrows MD [address] [place] [address] 02/09/2016 11:13:16 02/09/2016 12:48:32 Low back pain 521301203 M54.5 Chronic ob structive pulmonary disease 95064040 J44.9 History of depression 16 8152512 Z86.59 Asthma 217856599 J45.90 9 Tobacco user 891346523 Z 72.0 [id number] Kristin Alvares [address] [place] [address] 05/16/2016 11:07:49 05/16/2016 12:02:44 Cigarette smoker 63911487 F17.210 pt to start after illness Body mass index 30+ - obesity 071438957 Z68.39 Viral gastroenteritis 11 9190714 A08.4 Asthma 778041933 J45.90 9 Chronic ob structive pulmonary disease 92771889 J44.9 Candidiasis of skin 4988 3006 B37.2 Upper resp iratory infection 19578312 J06.9 [id number] Kristin Alvares [address] [place] [address] 07/06/2016 15:12:40 07/07/2016 07:27:54 Renewal of prescription 626528918 Z76.0 Moderate c hronic obstructive pulmonary disease 223393225 J44.9 Cough 39282359 R05 [id number] Kristin Alvares [address] [place] [address] 07/11/2016 13:29:32 07/11/2016 14:54:32 Chronic obstructive pulmonary disease 84523285 J44.9 Upper resp iratory infection 40665860 J06.9 Conjunctivitis 2271527 H 10.9 [id number] Serene Rodriguez [address] [place] [address] 07/18/2016 12:23:00 07/18/2016 13:34:32 Renewal of prescription 799581059 Z76.0 Pruritic rash 93084119 L 28.2 [id number] Serene Rodriguez [address] [place] [address] 10/31/2016 09:52:37 10/31/2016 11:46:41 General examination of patient 002719430 Z00.00 Viral screening 99749675 4 Z11.59 Vaccination required 170 997091 Z28.3 Screening for malignant neoplasm of colon 196950000 Z12.11 Body mass index 30+ - obesity 427179011 Z68.36 Fibrocysti c disease of breast 11173376 N60.19 Chronic ob structive pulmonary disease 04018014 J44.9 Screening for cardiovascular system disease 983763959 Z13.6 Endocrine/ metabolic screening 715285676 Z13.228 Renewal of prescription 750479222 Z76.0 [id number] Serene Rodriguez [address] [place] [address] 12/05/2016 13:49:32 12/05/2016 14:52:22 Body mass index 30+ - obesity 467004445 Z68.36 Contact dermatitis 95328 004 L25.9 Renewal of prescription 799453767 Z76.0 [id number] Kristin Alvares [address] [place] [address] 12/14/2016 09:20:50 12/14/2016 15:01:40 Pain of elbow region 67095728 M25.572 [id number] Serene Rodriguez [address] [place] [address] 03/13/2017 08:33:21 03/13/2017 09:37:50 Dyspnea 840529238 R06.00 [id number] Serene Rodriguez [address] [place] [address] 08/03/2017 12:49:35 08/03/2017 16:39:02 Stented coronary artery 907557093 Z95.5 Chronic ob structive pulmonary disease 78557711 J44.9 Asthma 312019336 J45.90 9 Low back pain 457230113 M54.5 Body mass index 30+ - obesity 836630607 Z68.36 Obesity 385550014 E66.9 Contact dermatitis 64127 004 L25.9 Insomnia 355152878 G47.0 0 Renewal of prescription 048481938 Z76.0 Moderate c hronic obstructive pulmonary disease 822956935 J44.9 Gastroesop hageal reflux disease 185283635 K21.9 [id number] Serene Rodriguez [address] [place] [address] 08/24/2017 13:30:56 08/24/2017 15:22:15 Knee pain 11698791 M25.561 Swelling o f knee joint 790923628 M25.469 Edema of l ower extremity 299101753 R60.0 Abdominal pain 47558594 R10.9 Pain provo ked by walking 393998251 R52 Smoker 38922033 F17.904 [id number] Serene Rodriguez [address] [place] [address] 11/02/2017 13:28:10 11/02/2017 14:55:23 Anxiety 35503362 F41.9 Depressive disorder 3548 9007 F32.9 Abnormal g rief reaction 801960836 F43.20 [id number] Serene Rodriguez [address] [place] [address] 01/08/2018 10:39:32 01/08/2018 11:27:49 Depressive disorder 92864522 F32.9 Anxiety 46665373 F41.9 Vertigo 375818060 R42 Upper resp iratory infection 53392062 J06.9 [id number] Serene Rodriguez [address] [place] [address] 05/15/2018 11:17:50 05/15/2018 12:28:29 Sudden visual loss 48774054 H53.131 Headache 03935339 R51 Dizziness 184189689 R42 [id number] Serene Rodriguez [address] [place] [address] 06/07/2018 15:41:29 06/12/2018 12:06:37 Fever 684610870 R50.9 Chronic ob structive pulmonary disease 85509806 J44.9 Acute exac erbation of chronic obstructive pulmonary disease 344458078 J44.1 [id number] Serene Rodriguez[address] [place] [address] 03/11/2019 11:24:54 03/11/2019 12:15:43 Administration of influenza vaccine 99185788 Z23 Acute exac erbation of chronic obstructive pulmonary disease 591270718 J44.1 Chronic ob structive pulmonary disease 37946204 J44.9 Fever 380399175 R50.9 Smoker 53622504 F17.200 Recent weight loss 68202 7000 R63.4 Influenza 8019742 J11.1 [id number] Irineo Burrows MD [address] [place] [address] 05/17/2019 13:39:14 05/17/2019 14:20:42 Cough 90355192 R05 Otitis media 84250490 H6 6.91 Chronic ob structive pulmonary disease 29890592 J44.9 [id number] Serene Rodriguez [address] [place] [address] 06/25/2019 13:52:15 06/25/2019 15:00:39 Chronic obstructive pulmonary disease 37773672 J44.9 Chronic depression 84328 0009 F34.1 Pruritic rash 40688852 L 28.2 Insomnia 806519275 G47.0 0 [id number] Serene Rodriguez [address] [place] [address] 09/27/2019 15:44:21 09/27/2019 16:43:38 Body mass index 25-29 - overweight 990564500 Z68.27 Ankle pain 504798932 M25 .572 Eruption 762671781 R21 Vitamin D deficiency 347 77425 E55.9 [id number] Serene Rodriguez [address] [place] [address] 04/17/2020 14:25:04 04/17/2020 15:14:50 Viral screening 634384721 Z11.59 Hypokalemia 66252851 E87 .6 Anxiety 65675222 F41.9 [id number] Serene Rodriguez [address] [place] [address] 08/18/2020 11:28:53 08/18/2020 12:22:27 Abdominal pain 79405859 R10.9 Benign hypertension 1072 5009 I10 stable Chronic ob structive pulmonary disease 00676847 J44.9 stable Chronic depression 27735 0009 F34.1 stable Smoker 74609726 F17.200 pt does not wish to quit at this time Chronic back pain 863486 002 G89.29 [id number] Serene Rodriguez [address] [place] [address] 09/03/2020 15:58:48 09/03/2020 16:32:49 Chronic back pain 562999078 G89.29 Benign hypertension 1072 5009 I10 stable Chronic depression 63353 0009 F34.1 stable Chronic ob structive pulmonary disease 31987001 J44.9 stable Abdominal pain 29464534 R10.9 Gastroesop hageal reflux disease 464269589 K21.9 [id number] Kristin Alvares [address] [place] [address] 03/03/2021 08:38:33 03/03/2021 09:22:57 Spasm of back muscles 886302920 M62.412 [id number] Herrera Barrera DO [address] [place] [address] 04/19/2021 15:34:19 04/19/2021 16:18:50 Cough 11795608 R05.9 COVID-19 262917654 U07.1 [id number] Alyssa Olson [address] [place] [address] 12/15/2021 10:17:43 12/15/2021 11:32:18 Body mass index 30+ - obesity 938890888 Z68.35 Obesity 612718513 E66.3 Screening for malignant neoplasm of colon 059277369 Z12.11 Arthritis of right knee joint 9654714391 802657 M13.735 [id number] Alyssa Olson [address] [place] [address] 12/30/2021 14:23:59 12/30/2021 15:18:13 Viral screening 243674521 Z11.52 Positive for COVID, Negative for Flu A&B per rapid testing [id number] Alyssa Olson [address] [place] [address] 01/21/2022 15:36:50 01/21/2022 16:10:45 Pain of right knee joint 7185069848 98258 M25.735 [id number] Rafael Whatley MD [address] [place] [address] 03/11/2022 12:31:18 03/11/2022 13:54:21 Body mass index 30+ - obesity 128784128 Z68.36 Pain of ri ght knee joint 2286035559 94873 M25.569 [id number] Rafael Whatley MD [address] [place] [address] 04/18/2022 15:16:44 04/18/2022 17:00:37 Spasm 14859778 R25.2 Pt will use OTC Mg supplement s, as well [id number] Rafael Whatley MD [address] [place] [address] 05/02/2022 10:42:54 05/02/2022 11:30:27 Arthritis of right knee joint 8996422222 607461 M13.861 Body mass index 30+ - obesity 716376277 Z68.36 Obesity 530874209 E66.9 Spasm of back muscles 20 2928665 M62.830 resolved, check K+ and Mg2+ at next appt [id number] Rafael Whatley MD [address] [place] [address] 05/30/2022 10:46:54 05/30/2022 12:56:36 Arthritis of right knee joint 4759062109 420368 M13.861 very good resolution with injection and weight loss Body mass index 30+ - obesity 989113218 Z68.36 Pt actively working on weight loss, [facility] [id number] Rafael Whatley MD [address] [place] [address] 08/19/2022 08:06:44 08/19/2022 08:50:10 Arthritis of right knee joint [id number] 006811 M13.861 very good resolution with injection and weight loss [id number] Rafael Whatley MD [address] [place] [address] 11/07/2022 15:29:14 11/07/2022 16:50:47 Arthritis of right knee joint [id number] 149247 M13.861 Pt tolerated injection well Bilateral plantar fasciitis 1248802941 9539778 M72.2 Pt trying cold rolls for now [id number] Rafael Whatley MD [address] [place] [address] 01/06/2023 14:11:43 01/06/2023 15:04:28 Pain of right knee joint 8946422936 76403 M25.619 [id number] Rafael Whatley MD [address] [place] [address] 02/03/2023 10:49:24 02/03/2023 12:46:21 Screening for malignant neoplasm of colon 639092597 Z12.11 pt has cologuard box encouraged to use Screening for malignant neoplasm of respiratory tract 260131559 Z12.2 pt declines Nicotine d ependence with current use 410281793 F17.210 Current tobacco user Former hea vy tobacco smoker 0545676526 71933 Z87.891 Former tobacco user Body mass index 30+ - obesity 347885929 Z68.36 Pt actively working on weight loss, encouragem ent provided Obesity 186021272 E66.9 Pain of ri ght knee joint 2152325613 78019 M25.228 [id number] Rafael Whatley MD [address] [place] [address] 02/27/2023 15:31:55 02/27/2023 16:10:29 Dysfunction of bilateral eustachian tubes 6565328173 743973 H69.93 Arthritis of right knee joint 9300438729 704893 M13.970 [id number] Rafael Whatley MD [address] [place] [address] 04/11/2023 10:34:07 04/11/2023 11:39:51 Arthritis of right knee joint 2552364796 648264 M13.861 Cellulitis of breast 758 20622 N61.0 [id number] Rafael Whatley MD [address] [place] [address] 06/13/2023 09:10:57 06/13/2023 09:29:16 Arthritis of right knee joint 7801207511 344287 M13.861 Body mass index 30+ - obesity 548419421 Z68.38 Pt actively working on weight loss, encouragem ent provided Obesity 101527544 E66.9 Tobacco user 228558395 Z 72.0 [id number] Rafael Whatley MD [address] [place] [address] 07/18/2023 09:32:37 07/18/2023 10:23:27 Adult health examination 422225947 Z00.00 Depression screening 171 256754 Z13.31 A depression screening was completed via a standardiz ed screening tool. 5 minutes were spent discussing depression screening results and risk factors. Examinatio n of blood pressure 774439274 Z01.30 Diet education 97830807 Z71.3 Counseling 664226386 Z71 .82 Exercise counseling . Patient encouraged to exercise 30 minutes 5 days a week. At [facility] ed risk for falls 624578188 Z91.81 STEADI FAST screening score of _5____. Advance care planning 71 5432374 Z71.89 Body mass index 30+ - obesity 054697805 Z68.39 Pt actively working on weight loss, encouragem ent provided Obesity 217413224 E66.9 Screening mammography 24 190444 Z12.31 Hyperlipid emia screening 448706559 Z13.220 Endocrine/ metabolic screening 480352590 Z13.228 HIV screening 660077505 Z11.4 Screening for malignant neoplasm of colon 950314465 Z12.11 Pain of ri ght knee joint 4023723337 37590 M25.561 Arthritis of right knee joint 4269150767 903304 M13.012 [id number] Rafael Whatley MD [address] [place] [address] 07/21/2023 13:25:33 07/21/2023 14:20:12 Vitamin D deficiency 26893158 E55.9 Hyperlipidemia 05823449 E78.5 continue current management [id number] Rafael Whatley MD [address] [place] [address] 09/08/2023 09:04:45 09/08/2023 10:25:55 Arthritis of right knee joint 2881365191 072751 M13.861 responded well to injection [id number] Rafael Whatley MD [address] [place] [address] 10/19/2023 10:32:23 10/19/2023 11:37:18 Arthritis of right knee joint 2779821899 408737 M13.861 responded well to injection Vitamin D deficiency 347 61469 E55.9 refill requested [id number] Rafael Whatley MD [address] [place] [address] 12/01/2023 12:59:50 12/01/2023 14:43:44 Arthritis of right knee joint 4542440220 555288 M13.861 following with Ortho, procedure planned in 3 weeks Chronic ob structive pulmonary disease 46648525 J44.9 refill requested Body mass index 30+ - obesity 747925323 Z68.37 Pt actively working on weight loss, encouragem ent provided Obesity 179886383 E66.9 [id number] Rafael Whatley MD [address] [place] [address] 12/18/2023 13:37:27 12/18/2023 15:29:35 Body mass index 30+ - obesity 909286988 Z68.37 Pt actively working on weight loss, encouragem ent provided Obesity 238506066 E66.9 Pain of ri ght knee joint 1320052970 70859 M25.017 [id number] Rafael Whatley MD [address] [place] [address] 01/11/2024 11:35:33 01/11/2024 12:08:24 Pain of right knee joint 6301842276 17239 M25.215 [id number] Rafael Whatley MD [address] [place] [address] 01/25/2024 08:36:59 01/25/2024 10:03:25 Pain of right knee joint 3658983429 86471 M25.937 [id number] Rafael Whatley MD [address] [place] [address] 03/05/2024 10:16:43 03/05/2024 10:47:15 Pain of right knee joint 4424532626 99532 M25.542 [id number] Rafael Whatley MD [address] [place] [address] 04/09/2024 11:21:19 04/09/2024 12:51:37 Pain of right knee joint 7662213806 36577 M25.549 [id number] Rafael Whatley MD [facility] [address] [place] [address] [place] [address] 05/24/2024 11:33:33 05/24/2024 12:59:54 Pain of right knee joint 8107768894 20669 M25.561 Arthritis of right knee joint 7197348766 982856 M13.861 following with Ortho, [id number] Rafael Whatley MD [address] [place] [address] 06/17/2024 13:05:40 06/17/2024 14:52:35 Upper respiratory infection 29433400 J06.9 [id number] Juwan Gomes PA-C [address] [place] [address] 07/10/2024 10:27:06 07/10/2024 11:27:34 Chronic obstructive pulmonary disease 65944929 J44.9 Essential hypertension 01878685 I10 Hyperlipidemia 81014999 E78.5 Chronic depression 91234 0009 F32.A Peripheral edema 2520995 00 R60.9 Endocrine/ metabolic screening 586130289 Z13.228 Pain of ri ght knee joint 8545667740 58474 M25.561 Stented co ronary artery 848056212 Z95.5 [id number] Juwan Gomes PA-C [address] [address] 07/25/2024 12:45:39 07/25/2024 15:10:04 Prediabetes 173081889 R73.03 192581 Making dietary changes but also preferring to use medication . Insomnia 896645664 G47.0 9 23371 Cautioned risk of increased SI with antidepres pramod medication . Spasm 58090606 R25.2 13650 Cautioned side effect of sedation; do not take with other sedatives. Do not drink alcohol with medication . Do not operate machinery or drive after taking medication . [id number] Juwan Gomes PA-C [address] [address] 09/19/2024 09:34:20 09/19/2024 10:46:56 Benign hypertension 85900057 I10 Check BP at home. Try to keep daily diary. If SBP >170 or if DBP > 100 call clinic, MD, or seek help. Dangers of high BP discussed. I also recommende d to reduce dietary sodium intake to less than 100 mEq (2.3 g of sodium or 6 g of sodium chloride)/ day. Discussed weight loss, DASH diet and exercise program as lifestyle changes to help control BP. Cautioned to watch for sxs such as chest pain, vision changes, ZACARIAS, or SOA and alert clinic or ER if present. Tobacco de pendence caused by cigarettes 4638926372 7501929 F17.155 9402757 Cramp in lower limb 4499 61844 R25.2 291145 Cautioned side effect of sedation; do not take with other sedatives. Do not drink alcohol with medication . Do not operate machinery or drive after taking medication . Body mass index 30+ - obesity 921700141 E66.9 5120930 Encouraged healthy diet and food journaling , open to [employer]. encouraged use of apps such as:My [employer] Diet CoachLose It!In addition to paper and pen food journal. Calorie deficit necessary for weight loss. Pay attention to food labels, keep track of calorie intake. Attempt to increase exercise. Acute exac erbation of chronic obstructive pulmonary disease 511940623 J44.1 915511 Discussed supportive care with patient. Advised to drink plenty of fluids and fluids containing electrolyt es. Try to get plenty of rest. Can take OTC pain medication such as tylenol or ibuprofen (dosed based on weight for pediatric patients) as needed to relieve fever, headache, or body aches. If patient should get worse call clinic or go to emergency room. Discussed expected course and cautioned signs and sxs to seek further treatment. [id number] Juwan Gomes PA-C [address] [address] 10/21/2024 14:30:48 10/21/2024 16:07:12 Acute exacerbation of chronic obstructive pulmonary disease 128679567 J44.1 929342 Discussed supportive care with patient. Advised to drink plenty of fluids and fluids containing electrolyt es. Try to get plenty of rest. Can take OTC pain medication such as tylenol or ibuprofen (dosed based on weight for pediatric patients) as needed to relieve fever, headache, or body aches. If patient should get worse call clinic or go to emergency room. Discussed expected course and cautioned signs and sxs to seek further treatment. Health Concerns Section Related Observation LastModified by Organization Detai ls LastModified Time None Recorded Concern Status LastModified by Organization Details LastModified Time None Recorded Advance Directives Directive N: Payers Insurance Date Sequence Insurance Name Policy Number Policy Garcia Covered Member ID Garcia Member ID Guarantor Name 02/03/2023 1 [employer] (MEDICARE REPLACEMENT/ ADVANTAGE - HMO) Anette Ng [id number] Anette Gomes 04/11/2023 1 [employer] (MEDICARE REPLACEMENT/ ADVANTAGE - HMO) Anette Gomes [id number] Anette Gomes 02/03/2023 [employer] [place] [facility] (MEDICARE) Anette Gomes [id number] Anette Gomes 09/17/2022 1 [employer] - DUAL ELIGIBLE (MEDICARE REPLACEMENT/ ADVANTAGE - HMO) Anette Ng [id number] Anette Gomes 11/07/2022 2 [employer] - DUAL ELIGIBLE (MEDICARE REPLACEMENT/ ADVANTAGE - HMO) Anette Gomes [id number] Anette Gomes 08/19/2022 1 [employer] (MEDICARE REPLACEMENT/ ADVANTAGE - HMO) Anette Ng [id number] Anette Gomes 08/19/2022 2 [employer] (MEDICARE REPLACEMENT/ ADVANTAGE - HMO) Anette Ng [id number] Anette Gomes 08/19/2022 2 [employer] - DUAL ELIGIBLE (MEDICARE REPLACEMENT/ ADVANTAGE - HMO) Anette Ng [id number] Anette Gomes 08/19/2022 1 [employer]SPORT BY [employer] ([facility]) Anette Ng [id number] Anette Gomes 04/19/2021 [place] [facility] [place] [id number] Anette Ng [id number] Anette Gomes 06/24/2021 [place] [facility] [place] Anette Ng [id number] Anette Gomes 06/24/2021 2 [place] Anette Ng [id number] Anette Gomes 08/19/2022 1 [place]MED[place]AC[place] [id number] Anette Ng [id number] Anette Gomes 09/17/2022 2 [place] Anette Ng [id number] Anette Gomes 08/03/[address] [facility] Anette Ng [id number] Anette Gomes 04/19/2021 1 [employer] [place]ICA[place] H[place]) [id number] Anette Ng [id number] Anette Gomes 06/07/2018 1 *SELF PAY* Co david Stringer Gomes 04/19/2021 1 [place] Anette Ng [id number] Anette Gomes 06/06/2016 1 UNSPECIFIED REMIT PAYOR Anette Gomes 11/25/2024 1 [place] [id number] Anette Gomes [id number] Anette Gomes 08/19/2022 2 [employer] (MEDICAID REPLACEMENT - HMO) Anette Ng [id number] Anette Gomes 04/19/2021 [place] [id number] Anette Ng [id number] Anette Gomes 04/19/2021 [place] [facility] [id number] Anette Ng [id number] Anette Gomes Notes Date Note Type Note Provider Name and Address Organization Details Recorded Time 06/17/2024 text/html ROS as noted in the HPI Pt presents for 3-5 days of worsening cough (mostly dry, occasionally productive of nassar sputum, no hemoptysis), associated congestion and sore throat. Pt endorses subjective fevers and chills, intermittent wheezing and SoB but denies arthralgias, diarrhea, rashes, lymphadenopathy. Pt is a smoker. States did get Flu and Covid vaccs; endorses multiple sick contacts. Rafael Whatley MD [address], [place], [address], [place] [facility] 06/17/2024 16:16:04 07/10/2024 text/html Patient presents to office requesting refills on Anoro inhaler. Patient has hx of COPD. Patient would also like to discuss diuretic, states lasix has caused severe muscle pain. Recent visit with Dr. Ayala, following T2rdhlhk. Has been having increased right knee pain, december had repeat knee surgery with Pal. Pt denies chest pain, SOA at rest, difficulty eating or drinking, changes in bathroom habits, syncope/presyncope, or any other concerns. Juwan Gomes PA-C [address], [place], [address], [place] [facility] 07/10/2024 11:26:35 07/25/2024 text/html Patient presents to office to discuss labs. Patient would like to discuss increased blood sugar and alternatives to manage. Has been making dietary changes but would prefer addition of medication.Is interested in restarting trazodone as has used with benefit for insomnia prior. Reports muscle spasms to back that are bothersome at times. Pt denies chest pain, SOA, difficulty eating or drinking, changes in bathroom habits, syncope/presyncope, or any other concerns. Labs:Please let patient know that labwork looks good with few exceptions;A1C 6.1, stable from prior, prediabetic range, could discuss using medication to help lower if pt interested, either way should decrease carbs in diet and increase exercise.Vit D is low, would encourage supplementno other deficiencies notedthyroid function, cbc, cmp WNL; Other labwork is stable and without concerns. LN:Patient presents to office requesting refills on Anoro inhaler. Patient has hx of COPD. Patient would also like to discuss diuretic, states lasix has caused severe muscle pain. Recent visit with Dr. Ayala, following B6llszib. Has been having increased right knee pain, benjamín had repeat knee surgery with Pal. Pt denies chest pain, SOA at rest, difficulty eating or drinking, changes in bathroom habits, syncope/presyncope, or any other concerns. Juwan Gomes PA-C [address], [place], [address], [facility] - [facility] 07/25/2024 21:02:26 09/19/2024 text/html Patient presents to office for follow up Patient reports continues to utilize Lasix 40mg, reports increased pain to bilateral extremities, feels may be related to lasix.Follows with Dr. Ayala, last visit 3-4 months ago, over a year ago last ischemic evalContinues smoking 2ppdDenies abnormal color urine or change in voids.Pt denies chest pain, SOA, difficulty eating or drinking, changes in bathroom habits, syncope/presyncope, or any other concerns. LN:Patient presents to office to discuss labs. Patient would like to discuss increased blood sugar and alternatives to manage. Has been making dietary changes but would prefer addition of medication.Is interested in restarting trazodone as has used with benefit for insomnia prior. Reports muscle spasms to back that are bothersome at times. Pt denies chest pain, SOA, difficulty eating or drinking, changes in bathroom habits, syncope/presyncope, or any other concerns. Labs:Please let patient know that labwork looks good with few exceptions;A1C 6.1, stable from prior, prediabetic range, could discuss using medication to help lower if pt interested, either way should decrease carbs in diet and increase exercise.Vit D is low, would encourage supplementno other deficiencies notedthyroid function, cbc, cmp WNL; Other labwork is stable and without concerns. Juwan Gomes PA-C [address], [place], [address], [facility] - [facility] 09/30/2024 13:13:07 10/21/2024 text/html 64yoF presents via telephone with concerns of increased cough (occasionally productive nassar sputum), SALVADOR, wheeze for the past week. Nebulizer helpful but using more frequently. reports subjective fever. Patient denies any significant exposure to known illness (COVID, FLU, Strep). Pt denies chest pain, SOA at rest, difficulty eating or drinking, changes in bathroom habits, syncope/presyncope, or any other concerns. Juwan Gomes PA-C [address], [place], [address], [facility] - [facility] 10/22/2024 09:48:16 OBGyn Episode No OBEpisode recorded.
--- NOTE | 2025-02-14 10:00 | NM_ITS ---
FINAL REPORT TECHNIQUE: Sequential anterior images were obtained after the ingestion of eggs radiolabeled with mCi technetium 99M sulfur colloid. CLINICAL HISTORY: Severe postprandial abdominal distention/bloating 10:05 am .547mci sulfur colloid injected into 2 eggs scrambled white toiast with butter 6 oz of water FINDINGS: GASTRIC EMPTYING SCAN Static images show normal emptying of the stomach into the small bowel. Based on the time activity curve, the estimated half-emptying time is 42 minutes, within normal limits. IMPRESSION: Normal gastric emptying study. Reviewed, Interpreted and Dictated by Da Engle MD Transcribed by Noemí Barajas Authenticated and . [facility]
[2025-02-14] MEDS: TC99M SULF.COLLOID;1 DOSE (UP TO 20 MCI) IV (11:27)
[2025-02-14] MEDS: SODIUM CHLORIDE 0.9% 10ML SYR (RAD ONLY) 10 ML IV (11:27)
== END 2025-02-14 23:59 | disposition home or self-care (01) ==
LOC: RAD 09:49
PROVIDERS: PCP Nurse Practitioner Family; Visit Provider Nurse Practitioner Family
DX: R14.0 Abdominal distension (gaseous) (principal)
CPT/HCPCS: 78264; A9541

== ENCOUNTER → 2025-03-10 06:53 | Outpatient (CLI) | payer MEDICARE, SELFPAY ==
--- OUTSIDE RECORDS SUMMARY | 2025-03-10 06:56 | XMS_ITS | Clinical Summary ---
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 Name Role Phone Unavailable Primary Care Provider [...] Date Smoking Tobacco: Every Day Cigarettes 1 49.9 Started: 1975 Smokeless Tobacco: Never Comments:Has tried [...] this topic Medical Devices Implanted Type Area Coding Quality Analyst Device Identifier Shelf Expiration Date Model / Serial / Lot Kt Bone Cemnt [id number] [facility] [id number] Implanted:Qty: 1 on 04/28/2023 by Carlos Holbrook MD at [facility] Right: Knee NITO:NITO 10/10/2025 [id number] / / [id number] Procedures Procedure Name Priority Date/Time Associated Diagnosis [...] EDT Impressions 08/24/2023 8:28 AM EDT Negative (AQL-Yzvropmu-3) ~ RECOMMENDATION: Routine screening mammogram in 1 [...] the next mammogram, in accordance with the [place] [employer] and the Society of Breast Imaging recommendations. Narrative 08/24/2023 8:28 AM EDT Procedure:MM MAMMO DIGITAL HORACE SCREEN BILAT ~ Reason for exam: screening, asymptomatic. Z12.31-Encounter for screening mammogram for malignant neoplasm of mhclet-TDQ-50-CM ~ MM MAMMO DIGITAL HORACE SCREEN BILAT [...] for screening mammogram for malignant neoplasm of [id number]-ZWJ-77-CM ~ MM MAMMO DIGITAL HORACE SCREEN BILAT Bilateral CC and MLO view(s) were taken. There are scattered fibroglandular densities. Prior study comparison: Compared with prior studies the most recentbeing 03/17/21 No mammographic evidence of malignancy. ~ IMPRESSION: Negative (NVP-Ybhtqdvx-6) ~ RECOMMENDATION: Routine screening mammogram in 1 [...] the next mammogram, in accordance with the [place] [employer] and the Society of Breast Imaging recommendations. 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 Plan / Payer (Ef fective 2015-Present) Name:Anette Gomes Relation to Subscriber:Employee Name:[employer] Date of :1966 (Home) Address: ATTN: ZAIRA [address] [place] [address] Payer ID:Not on file Group ID:Not on file Type:Not on file Address: ATTN: ZAIRA [address] [address] [place] [address] ANTH MEDICARE ADVANTAGE MR * Guarantor: [employer] Account Type Relation to Patient Date of Phone Billing Address [place] Employ[employer] 1966 ATTN: ZAIRA [address] [address] [place] [address] 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 Plan / Payer (Ef fective 2015-Present) Name:Anette Gomes Relation to Subscriber:Employee Name:[employer] Date of :1966 (Home) Address: ATTN: ZAIRA [address] [address] [place] [address] Payer ID:Not on file Group ID:Not on file Type:Not on file Address: ATTN: ZAIRA [place] [address] [address] [place] [address] * Guarantor: [facility] Account Type Relation to Patient Date of Phone Billing Address Corporate Other [address] [facility] Attn: Shaneka [facility] [address] [place] [id number]
--- OUTSIDE RECORDS SUMMARY | 2025-03-10 06:56 | XMS_ITS | Data Portability ---
Author Organization [facility] Address [address] [place] [address] Assessment Encounter Date Assessment Date Assessment LastModified by Organization Details LastModified Time 07/10/2024 07/10/2024 review card records, get notes mark Not available 07/10/2024 11:24:16 10/21/2024 10/21/2024 Service was provided using audio [employer] . The patient verbally consents to virtual services and the consent is documented in the medical record prior to using the service. Patient is located at their place of residence in [facility]. Provider is located at medical clinic in [facility]. Names and roles of all persons participating in telemedicine services include:georgina 15 minutes spent in discussion with patient [email or web address] Not available 10/22/2024 09:47:31 Plan of Treatment Reminders Order Date Submit Date Provider Last Modified By Organization Details Last Modified Time Details Appointments None recorded. Lab magnesium, serum or plasma 2024 025 [facility], [address], [address], [place], [address], 5 13:08:09 iron + total iron-tautm ng capacity (TIBC), serum 2024 025 [facility], [address], [place] [address], [place], [address], 5 13:08:07 cobalamin and folate panel, serum 2024 025 [facility], [address], [place], [place], [address], 5 13:08:08 CK (creatine kinase), total, serum 2024 025 [facility], [address], [place] [address], [place], [address], 5 13:08:08 CMP, serum or plasma 2024 025 [facility], [address], [address], [place], [address], 5 13:08:06 CBC w/ auto diff 2024 025 [facility], [address], [place] [address], [place], [address], 5 13:08:05 TSH + free T4, serum 2024 025 [facility], [address], [place] [address], [place], [address], 5 07:41:01 magnesium, serum or plasma 2024 025 [facility], [address], [place] [address], [place], [address], 5 07:41:05 CMP, serum or plasma 2024 025 [facility], [address], [place] [address], [place], [address], 5 07:41:03 CBC w/ auto diff 2024 025 [facility], [address], [place], [place], [address], 5 07:41:02 HbA1c (hemoglobi n A1c), blood 2024 025 [facility], [address], [place] [address], [place], [address], 5 07:41:04 vitamin D, 25-hydroxy , total, serum 2024 025 [place] [facility], [address], [place] [address], [place], [address], 5 07:41:[address]/dietiti an referral 2024 025 [facility], [address] [place] [address], [address], 5 17:45:17 Procedures None recorded. Surgeries None recorded. Imaging LDCT, chest, for lung cancer screening 2024 025 [facility], [address] [place] [address], [id number], 5 13:04:42 Medication Orders prednisone 20 mg tablet 2024 025 [facility], [address] [place] [address], [address], 5 15:00:55 azithromyc in 250 mg tablet 2024 025 [facility], [address] [place] [address], [address], 5 15:00:55 azithromyc in 250 mg tablet 2024 025 [facility], [address] [place] [address], [address], 5 10:42:27 prednisone 20 mg tablet 2024 025 [facility], [address] [place] [address], [address], 5 05:01:23 ipratropiu m 0.5 mg-albuter ol 3 mg (2.5 mg base)/3 mL nebulizati on soln 2024 025 [facility], [address] [place] [address], [address], 5 10:40:08 nicotine 21 mg/24 hr daily transderma l patch 2024 025 [facility], [address] [place] [address], [address], 5 10:41:08 nicotine (polacrile x) 4 mg buccal lozenge [address], [address], 5 10:41:08 trazodone 100 mg tablet 2024 025 [facility], [address] [place] [address], [address], 5 14:17:27 methocarba mol 500 mg tablet [address], [address], 5 14:17:27 metformin 500 mg tablet [address], [address], 5 14:16:34 furosemide 40 mg tablet [address], [address], 5 11:23:15 potassium chloride ER 10 mEq tablet,ext ended release 2024 025 [facility], [address] [place] [address], [place], [address], 5 11:23:13 paroxetine 10 mg tablet 2024 025 [facility] - [address], [address], 5 11:23:11 meloxicam 15 mg tablet 2024 025 [facility] - [address], [address], 5 11:23:09 metoprolol succinate ER 25 mg tablet,ext ended release 24 hr [address], [address], 5 11:23:09 spironolac tone 100 mg tablet [address], [address], 5 11:23:10 clopidogre l 75 mg tablet [address], [address], 5 11:23:14 rosuvastat in 5 mg tablet [address], [address], 5 11:23:16 Anoro Ellipta 62.5 mcg-25 mcg/actuat ion powder for inhalation [address], [address], 5 11:23:10 Solu-Medro l (PF) 125 mg/2 mL solution for injection 2024 025 [email or web address] [facility], [address] [place] [address], [place], [address], 5 09:47:32 prednisone 20 mg tablet 2024 025 [facility], [address] [place] [address], [place], [address], 5 05:01:23 azithromyc in 500 mg tablet [address] [place] [address], [place], [address], 5 09:50:39 ceftriaxon e 1 gram solution for injection 2024 025 [email or web address] [facility], [address] [place] [address], [place], [address], 5 09:47:06 Patient TargetsNo targets recorded. Patient Instructions Encounter Date Encounter Id Patient Instructions Last Modified By Organization Details Last Modified Time 07/10/2024 [id number] medical record request* - Please provide recent visit note(s) and any relevant results [email or web address] Not available 07/18/2024 16:00:25 chronic obstructive pulmonary disease (COPD): care instructions [email or web address] Not available 07/10/2024 11:23:06 learning about copd and how to prevent lung infections Not available 07/10/2024 11:23:06 07/25/2024 [id number] insomnia: care instructions [email or web address] Not available 07/25/2024 14:16:33 All questions answered and pt/guardian satisfied with treatment plan. Call with changes RTC or ED if symptoms change or worsen Keep next interval checkup Cont. chronic meds as prescribed Chronic conditions are stable Discussed natural and expected course of this diagnosis and need to alert the office if symptoms do not follow expected course or if any worsens [email or web address] Not available 07/25/2024 21:01:15 09/19/2024 [id number] smoking cessatio n counseling, greater than 3 minutes up to 10 minutes* [email or web address] Not available 09/19/2024 10:40:07 body mass index: care instructions [email or web address] Not available 09/19/2024 10:38:41 learning about healthy weight [email or web address] Not available 09/19/2024 10:38:41 All questions answered and pt/guardian satisfied with treatment plan. Call with changes RTC or ED if symptoms change or worsen Keep next interval checkup Cont. chronic meds as prescribed Chronic conditions are stable Discussed natural and expected course of this diagnosis and need to alert the office if symptoms do not follow expected course or if any worsens Not available 09/19/2024 10:42:33 10/21/2024 [id number] All questions answered and pt/guardian satisfied with treatment plan. Call with changes RTC or ED if symptoms change or worsen Keep next interval checkup Cont. 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 for Body mass index 30+ - obesity Referring Physician: Jwuan oGmes, Family Medicine, Encounter Date: 09/19/2024 Results Created Date Observation Date Name Description Value Unit Range Abnormal Flag Note LastModifiedBy Organization Detail LastModifiedTime 07/11/1907/11/2024 TSH+F REE T4 TSH 2.260 uIU/m L 0.450- 4.500 normal Not Available [facility] ([facility]) [address] [facility] [address], [place], [address], 07/11/2024 07:41:01 07/11/1907/11/2024 TSH+F REE T4 T4,free(dire ct) 1.44 NG/dL 0.82-1 .77 normal Not Available [facility] ([facility]) [address] [facility] [address], [place], [address], 07/11/2024 07:41:01 07/11/19 25 07/11/2024 CBC WITH DIFFE RENTI AL/PL ATELE T WBC 6.5 x10e3 /uL 3.4-10 .8 normal Not Available [facility] ([facility]) [address] [facility] [address], [place], [address], 07/11/2024 07:41:02 07/11/19 25 07/11/2024 CBC WITH DIFFE RENTI AL/PL ATELE T RBC 5.15 x10e6 /uL 3.77-5 .28 normal Not Available [facility] ([facility]) [address] [place], [address], 07/11/2024 07:41:02 07/11/19 25 07/11/2024 CBC WITH DIFFE RENTI AL/PL ATELE T hemoglobin 15.3 g/dL 11.1-1 5.9 normal Not Available [facility] ([facility]) [address] [place], [address], 07/11/2024 07:41:02 07/11/19 25 07/11/2024 CBC WITH DIFFE RENTI AL/PL ATELE T hematocrit 47.9 % 34.0-4 6.6 above high normal Not Available [facility] ([facility]) [address] [place], [address], 07/11/2024 07:41:02 07/11/19 25 07/11/2024 CBC WITH DIFFE RENTI AL/PL ATELE T MCV 93 fL 79-97 normal Not Available [facility] ([facility]) [address] [place], [address], 07/11/2024 07:41:02 07/11/19 25 07/11/2024 CBC WITH DIFFE RENTI AL/PL ATELE T MCH 29.7 pg 26.6-3 3.0 normal Not Available [facility] ([facility]) [address] [facility] [address], [place], [address], 07/11/2024 07:41:02 07/11/19 25 07/11/2024 CBC WITH DIFFE RENTI AL/PL ATELE T MCHC 31.9 g/dL 31.5-3 5.7 normal Not Available [facility] ([facility]) [address] [facility] [address], [place], [address], 07/11/2024 07:41:02 07/11/19 25 07/11/2024 CBC WITH DIFFE RENTI AL/PL ATELE T RDW 13.4 % 11.7-1 5.4 Not Available [facility] ([facility]) [address] [facility] [address], [place], [address], 07/11/2024 07:41:02 07/11/19 25 07/11/2024 CBC WITH DIFFE RENTI AL/PL ATELE T platelets 239 x10e3 /uL 150-45 0 normal Not Available [facility] ([facility]) [address] [facility] [address], [place], [address], 07/11/2024 07:41:02 07/11/19 25 07/11/2024 CBC WITH DIFFE RENTI AL/PL ATELE T neutrophils 59 % not estab. normal Not Available [facility] ([facility]) [address] [facility] [address], [place], [address], 07/11/2024 07:41:02 07/11/19 25 07/11/2024 CBC WITH DIFFE RENTI AL/PL ATELE T lymphs 29 % not estab. normal Not Available [facility] ([facility]) [address] [facility] [address], [place], [address], 07/11/2024 07:41:02 07/11/19 25 07/11/2024 CBC WITH DIFFE RENTI AL/PL ATELE T monocytes 6 % not estab. normal Not Available [facility] ([facility]) [address] [facility] [address], [place], [address], 07/11/2024 07:41:02 07/11/19 25 07/11/2024 CBC WITH DIFFE RENTI AL/PL ATELE T eos 3 % not estab. normal Not Available [facility] ([facility]) [address] [facility] [address], [place], [address], 07/11/2024 07:41:02 07/11/19 25 07/11/2024 CBC WITH DIFFE RENTI AL/PL ATELE T basos 2 % not estab. normal Not Available [facility] ([facility]) [address] [place], [address], 07/11/2024 07:41:02 07/11/19 25 07/11/2024 CBC WITH DIFFE RENTI AL/PL ATELE T immature cells LICENSED PHARMACIST Not Available [facility] ([facility]) [address] [place], [address], 07/11/2024 07:41:02 07/11/19 25 07/11/2024 CBC WITH DIFFE RENTI AL/PL ATELE T neutrophils (absolute) 3.9 x10e3 /uL 1.4-7. 0 normal Not Available [facility] ([facility]) [address] [place], [address], 07/11/2024 07:41:02 07/11/19 25 07/11/2024 CBC WITH DIFFE RENTI AL/PL ATELE T lymphs (absolute) 1.9 x10e3 /uL 0.7-3. 1 normal Not Available [facility] ([facility]) [address] [place], [address], 07/11/2024 07:41:02 07/11/19 25 07/11/2024 CBC WITH DIFFE RENTI AL/PL ATELE T monocytes(ab solute) 0.4 x10e3 /uL 0.1-0. 9 normal Not Available [facility] ([facility]) [address] [place], [address], 07/11/2024 07:41:02 07/11/19 25 07/11/2024 CBC WITH DIFFE RENTI AL/PL ATELE T eos (absolute) 0.2 x10e3 /uL 0.0-0. 4 normal Not Available [facility] ([facility]) [address] [facility], [place], [address], 07/11/2024 07:41:02 07/11/19 25 07/11/2024 CBC WITH DIFFE RENTI AL/PL ATELE T baso (absolute) 0.1 x10e3 /uL 0.0-0. 2 normal Not Available [facility] ([facility]) [address] [facility] [address], [place], [address], 07/11/2024 07:41:02 07/11/19 25 07/11/2024 CBC WITH DIFFE RENTI AL/PL ATELE T immature granulocytes 1 % not estab. Not Available [facility] ([facility]) [address] [facility] [address], [place], [address], 07/11/2024 07:41:02 07/11/19 25 07/11/2024 CBC WITH DIFFE RENTI AL/PL ATELE T immature grans (abs) 0.0 x10e3 /uL 0.0-0. 1 Not Available [facility] ([facility]) [address] [place], [address], 07/11/2024 07:41:02 07/11/19 25 07/11/2024 CBC WITH DIFFE RENTI AL/PL ATELE T NRBC LICENSED PHARMACIST Not Available [facility] ([facility]) [address] [facility], [place], [address], 07/11/2024 07:41:02 07/11/19 25 07/11/2024 CBC WITH DIFFE RENTI AL/PL ATELE T hematology comments: LICENSED PHARMACIST Not Available [facility] ([facility]) [address] [place], [address], 07/11/2024 07:41:02 07/11/19 25 07/11/2024 COMP. METAB OLIC PANEL (14) glucose 93 mg/dL 70-99 normal Not Available [facility] ([facility]) [address] [facility] [address], [place], [address], 07/11/2024 07:41:03 07/11/19 25 07/11/2024 COMP. METAB OLIC PANEL (14) BUN 14 mg/dL 8-27 normal Not Available [facility] ([facility]) [address] [facility] [address], [place], [address], 07/11/2024 07:41:03 07/11/19 25 07/11/2024 COMP. METAB OLIC PANEL (14) creatinine 0.92 mg/dL 0.57-1 .00 normal Not Available [facility] ([facility]) [address] [place], [address], 07/11/2024 07:41:03 07/11/19 25 07/11/2024 COMP. METAB OLIC PANEL (14) eGFR 70 mL/mi n/1.7 3 >59 normal Not Available [facility] ([facility]) [address] [place], [address], 07/11/2024 07:41:03 07/11/19 25 07/11/2024 COMP. METAB OLIC PANEL (14) BUN/creatini ne ratio 15 12-28 normal Not Available [facility] ([facility]) [address] [place], [address], 07/11/2024 07:41:03 07/11/19 25 07/11/2024 COMP. METAB OLIC PANEL (14) sodium 141 mmol/ L 134-14 4 normal Not Available [facility] ([facility]) [address] [place], [address], 07/11/2024 07:41:03 07/11/19 25 07/11/2024 COMP. METAB OLIC PANEL (14) potassium 4.9 mmol/ L 3.5-5. 2 normal Not Available [facility] ([facility]) [address] [facility] [place], [address], 07/11/2024 07:41:03 07/11/19 25 07/11/2024 COMP. METAB OLIC PANEL (14) chloride 102 mmol/ L 96-106 normal Not Available [facility] ([facility]) [address] [facility] [place], [address], 07/11/2024 07:41:03 07/11/19 25 07/11/2024 COMP. METAB OLIC PANEL (14) carbon dioxide, total 25 mmol/ L 20-29 normal Not Available [facility] ([facility]) [address] [facility] [place], [address], 07/11/2024 07:41:03 07/11/19 25 07/11/2024 COMP. METAB OLIC PANEL (14) calcium 9.2 mg/dL 8.7-10 .3 normal Not Available [facility] ([facility]) [address] [facility] [place], [address], 07/11/2024 07:41:03 07/11/19 25 07/11/2024 COMP. METAB OLIC PANEL (14) protein, total 6.2 g/dL 6.0-8. 5 normal Not Available [facility] ([facility]) [address] [facility] [place], [address], 07/11/2024 07:41:03 07/11/19 25 07/11/2024 COMP. METAB OLIC PANEL (14) albumin 4.0 g/dL 3.9-4. 9 normal Not Available [facility] ([facility]) [address] [facility] [place], [address], 07/11/2024 07:41:03 07/11/19 25 07/11/2024 COMP. METAB OLIC PANEL (14) globulin, total 2.2 g/dL 1.5-4. 5 Not Available [facility] ([facility]) [address] [place], [address], 07/11/2024 07:41:03 07/11/19 25 07/11/2024 COMP. METAB OLIC PANEL (14) bilirubin, total 0.3 mg/dL 0.0-1. 2 normal Not Available [facility] ([facility]) [address] [place], [address], 07/11/2024 07:41:03 07/11/19 25 07/11/2024 COMP. METAB OLIC PANEL (14) alkaline phosphatase 86 IU/L 44-121 normal Not Available [facility]) [address] [facility] [address], [place], [address], 07/11/2024 07:41:03 07/11/19 25 07/11/2024 COMP. METAB OLIC PANEL (14) AST (SGOT) 14 IU/L 0-40 normal Not Available [facility] ([facility]) [address] [facility] [address], [place], [address], 07/11/2024 07:41:03 07/11/19 25 07/11/2024 COMP. METAB OLIC PANEL (14) ALT (SGPT) 16 IU/L 0-32 normal Not Available [facility] ([facility]) [address] [place], [address], 07/11/2024 07:41:03 07/11/19 25 07/11/2024 HEMOG LOBIN A1C hemoglobin A1C 6.1 % 4.8-5. 6 above high normal Predi abete s: 5.7 - 6.4 Diabe sharif: >6.4 Glyce max contr ol for adult s with diabe sharif: <7.0 Not Available [facility] ([facility]) [address] [place], [address], 07/11/2024 07:41:04 07/11/19 25 07/11/2024 VITAM IN [...] um and D. Anthony barboza [place]: The [facility] . 2. Michael mir MF, Dottie mckenzie [place], Jayda off-F errar i ZACARIAS, et al. Evalu ation , treat ment, and preve ntion of vitam in D defic iency : an Endoc rine Socie ty clini ivon pract ice guide line. JCEM. 2010; 96(7) :1911 -30. Not Available [facility] ([facility]) [address] [place], [address], 07/11/2024 07:41:05 07/11/19 25 07/11/2024 MAGNE SIUM magnesium 2.4 mg/dL 1.6-2. 3 above high normal Not Available [facility] ([facility]) [address] [place], [address], 07/11/2024 07:41:05 09/20/19 25 09/20/2024 CBC WITH DIFFE RENTI AL/PL ATELE T WBC 7.5 x10e3 /uL 3.4-10 .8 normal Not Available [facility] ([facility]) [address] [place], [address], 09/20/2024 13:08:05 09/20/19 25 09/20/2024 CBC WITH DIFFE RENTI AL/PL ATELE T RBC 5.11 x10e6 /uL 3.77-5 .28 normal Not Available [facility] ([facility]) [address] [place], [address], 09/20/2024 13:08:05 09/20/19 25 09/20/2024 CBC WITH DIFFE RENTI AL/PL ATELE T hemoglobin 15.5 g/dL 11.1-1 5.9 normal Not Available [facility] ([facility]) [address] [place], [address], 09/20/2024 13:08:05 09/20/19 25 09/20/2024 CBC WITH DIFFE RENTI AL/PL ATELE T hematocrit 49.4 % 34.0-4 6.6 above high normal Not Available [facility] ([facility]) [address] [place], [address], 09/20/2024 13:08:05 09/20/19 25 09/20/2024 CBC WITH DIFFE RENTI AL/PL ATELE T MCV 97 fL 79-97 normal Not Available [facility] ([facility]) [address] [place], [address], 09/20/2024 13:08:05 09/20/19 25 09/20/2024 CBC WITH DIFFE RENTI AL/PL ATELE T MCH 30.3 pg 26.6-3 3.0 normal Not Available [facility] ([facility]) [address] [place], [address], 09/20/2024 13:08:05 09/20/19 25 09/20/2024 CBC WITH DIFFE RENTI AL/PL ATELE T MCHC 31.4 g/dL 31.5-3 5.7 below low normal Not Available [facility] ([facility]) [address] [place], [address], 09/20/2024 13:08:05 09/20/19 25 09/20/2024 CBC WITH DIFFE RENTI AL/PL ATELE T RDW 13.6 % 11.7-1 5.4 Not Available [facility] ([facility]) [address] [facility], [place], [address], 09/20/2024 13:08:05 09/20/19 25 09/20/2024 CBC WITH DIFFE RENTI AL/PL ATELE T platelets 242 x10e3 /uL 150-45 0 normal Not Available [facility] ([facility]) [address] [facility], [place], [address], 09/20/2024 13:08:05 09/20/19 25 09/20/2024 CBC WITH DIFFE RENTI AL/PL ATELE T neutrophils 61 % not estab. normal Not Available [facility] ([facility]) [address] [facility], [place], [address], 09/20/2024 13:08:05 09/20/19 25 09/20/2024 CBC WITH DIFFE RENTI AL/PL ATELE T lymphs 28 % not estab. normal Not Available [facility] ([facility]) [address] [facility], [place], [address], 09/20/2024 13:08:05 09/20/19 25 09/20/2024 CBC WITH DIFFE RENTI AL/PL ATELE T monocytes 6 % not estab. normal Not Available [facility] ([facility]) [address] [facility], [place], [address], 09/20/2024 13:08:05 09/20/19 25 09/20/2024 CBC WITH DIFFE RENTI AL/PL ATELE T eos 2 % not estab. normal Not Available [facility] ([facility]) [address] [facility], [place], [address], 09/20/2024 13:08:05 09/20/19 25 09/20/2024 CBC WITH DIFFE RENTI AL/PL ATELE T basos 2 % not estab. normal Not Available [facility] ([facility]) [address] [facility], [place], [address], 09/20/2024 13:08:05 09/20/19 25 09/20/2024 CBC WITH DIFFE RENTI AL/PL ATELE T immature cells LICENSED PHARMACIST Not Available [facility] ([facility]) [address] [facility], [place], [address], 09/20/2024 13:08:05 09/20/19 25 09/20/2024 CBC WITH DIFFE RENTI AL/PL ATELE T neutrophils (absolute) 4.7 x10e3 /uL 1.4-7. 0 normal Not Available [facility] ([facility]) [address] [facility], [place], [address], 09/20/2024 13:08:05 09/20/19 25 09/20/2024 CBC WITH DIFFE RENTI AL/PL ATELE T lymphs (absolute) 2.1 x10e3 /uL 0.7-3. 1 normal Not Available [facility] ([facility]) [address] [place], [address], 09/20/2024 13:08:05 09/20/19 25 09/20/2024 CBC WITH DIFFE RENTI AL/PL ATELE T monocytes(ab solute) 0.5 x10e3 /uL 0.1-0. 9 normal Not Available [facility] ([facility]) [address] [place], [address], 09/20/2024 13:08:05 09/20/19 25 09/20/2024 CBC WITH DIFFE RENTI AL/PL ATELE T eos (absolute) 0.2 x10e3 /uL 0.0-0. 4 normal Not Available [facility] ([facility]) [address] [place], [address], 09/20/2024 13:08:05 09/20/19 25 09/20/2024 CBC WITH DIFFE RENTI AL/PL ATELE T baso (absolute) 0.1 x10e3 /uL 0.0-0. 2 normal Not Available [facility] ([facility]) [address] [facility], [place], [address], 09/20/2024 13:08:05 09/20/19 25 09/20/2024 CBC WITH DIFFE RENTI AL/PL ATELE T immature granulocytes 1 % not estab. Not Available [facility] ([facility]) [address] [facility] [address], [place], [address], 09/20/2024 13:08:05 09/20/19 25 09/20/2024 CBC WITH DIFFE RENTI AL/PL ATELE T immature grans (abs) 0.0 x10e3 /uL 0.0-0. 1 Not Available [facility] ([facility]) [address] [facility], [place], [address], 09/20/2024 13:08:05 09/20/19 25 09/20/2024 CBC WITH DIFFE RENTI AL/PL ATELE T NRBC LICENSED PHARMACIST Not Available [facility] ([facility]) [address] [facility], [place], [address], 09/20/2024 13:08:05 09/20/19 25 09/20/2024 CBC WITH DIFFE RENTI AL/PL ATELE T hematology comments: LICENSED PHARMACIST Not Available [facility] ([facility]) [address] [facility], [place], [address], 09/20/2024 13:08:05 09/20/19 25 09/20/2024 COMP. METAB OLIC PANEL (14) glucose 90 mg/dL 70-99 normal Not Available [facility] ([facility]) [address] [facility] [place], [address], 09/20/2024 13:08:06 09/20/19 25 09/20/2024 COMP. METAB OLIC PANEL (14) BUN 21 mg/dL 8-27 normal Not Available [facility] ([facility]) [address] [place], [address], 09/20/2024 13:08:06 09/20/19 25 09/20/2024 COMP. METAB OLIC PANEL (14) creatinine 0.77 mg/dL 0.57-1 .00 normal Not Available [facility] ([facility]) [address] [place], [address], 09/20/2024 13:08:06 09/20/19 25 09/20/2024 COMP. METAB OLIC PANEL (14) eGFR 86 mL/mi n/1.7 3 >59 normal Not Available [facility] ([facility]) [address] [place], [address], 09/20/2024 13:08:06 09/20/19 25 09/20/2024 COMP. METAB OLIC PANEL (14) BUN/creatini ne ratio 27 12-28 normal Not Available [facility] ([facility]) [address] [facility] [place], [address], 09/20/2024 13:08:06 09/20/19 25 09/20/2024 COMP. METAB OLIC PANEL (14) sodium 139 mmol/ L 134-14 4 normal Not Available [facility] ([facility]) [address] [facility] [place], [address], 09/20/2024 13:08:06 09/20/19 25 09/20/2024 COMP. METAB OLIC PANEL (14) potassium 5.1 mmol/ L 3.5-5. 2 normal Not Available [facility] ([facility]) [address] [facility] [place], [address], 09/20/2024 13:08:06 09/20/19 25 09/20/2024 COMP. METAB OLIC PANEL (14) chloride 99 mmol/ L 96-106 normal Not Available [facility] ([facility]) [address] [facility] [place], [address], 09/20/2024 13:08:06 09/20/19 25 09/20/2024 COMP. METAB OLIC PANEL (14) carbon dioxide, total 23 mmol/ L 20-29 normal Not Available [facility] ([facility]) [address] [place], [address], 09/20/2024 13:08:06 09/20/19 25 09/20/2024 COMP. METAB OLIC PANEL (14) calcium 9.5 mg/dL 8.7-10 .3 normal Not Available [facility] ([facility]) [address] [place], [address], 09/20/2024 13:08:06 09/20/19 25 09/20/2024 COMP. METAB OLIC PANEL (14) protein, total 6.6 g/dL 6.0-8. 5 normal Not Available [facility] ([facility]) [address] [place], [address], 09/20/2024 13:08:06 09/20/19 25 09/20/2024 COMP. METAB OLIC PANEL (14) albumin 4.4 g/dL 3.9-4. 9 normal Not Available [facility] ([facility]) [address] [place], [address], 09/20/2024 13:08:06 09/20/19 25 09/20/2024 COMP. METAB OLIC PANEL (14) globulin, total 2.2 g/dL 1.5-4. 5 Not Available [facility] ([facility]) [address] [place], [address], 09/20/2024 13:08:06 09/20/19 25 09/20/2024 COMP. METAB OLIC PANEL (14) bilirubin, total <0.2 mg/dL 0.0-1. 2 Not Available [facility] ([facility]) [address] [place], [address], 09/20/2024 13:08:06 09/20/19 25 09/20/2024 COMP. METAB OLIC PANEL (14) alkaline phosphatase 91 IU/L 44-121 normal Not Available [facility] ([facility]) [address] [place], [address], 09/20/2024 13:08:06 09/20/19 25 09/20/2024 COMP. METAB OLIC PANEL (14) AST (SGOT) 16 IU/L 0-40 normal Not Available [facility] ([facility]) [address] [place], [address], 09/20/2024 13:08:06 09/20/19 25 09/20/2024 COMP. METAB OLIC PANEL (14) ALT (SGPT) 17 IU/L 0-32 normal Not Available [facility] ([facility]) [address] [place], [address], 09/20/2024 13:08:06 09/20/19 25 09/20/2024 IRON AND TIBC iron bind.cap.(TI BC) 365 ug/dL 250-45 0 normal Not Available [facility] ([facility]) [address] [place], [address], 09/20/2024 13:08:07 09/20/19 25 09/20/2024 IRON AND TIBC UIBC 306 ug/dL 118-36 9 normal Not Available [facility] ([facility]) [address] [place], [address], 09/20/2024 13:08:07 09/20/19 25 09/20/2024 IRON AND TIBC iron 59 ug/dL 27-139 normal Not Available [facility] ([facility]) [address] [place], [address], 09/20/2024 13:08:07 09/20/19 25 09/20/2024 IRON AND TIBC iron saturation 16 % 15-55 normal Not Available [facility] ([facility]) [address] [facility], [place], [address], 09/20/2024 13:08:07 09/20/19 25 09/20/2024 VITAM IN B12 AND FOLAT E vitamin B12 427 pg/mL 232-12 45 normal Not Available [facility] ([facility]) [address] [facility], [place], [address], 09/20/2024 13:08:08 09/20/19 25 09/20/2024 VITAM IN B12 AND FOLAT E folate (folic acid), serum 9.7 NG/mL >3.0 normal A serum folat e armida ntrat ion of less than 3.1 ng/mL is consi dered to repre sent clini ivon defic iency . Not Available [facility] ([facility]) [address] [facility], [place], [address], 09/20/2024 13:08:08 09/20/19 25 09/20/2024 CREAT INE KINAS E,TOT AL creatine kinase,total 224 U/L 32-182 above high normal Not Available [facility] ([facility]) [address] [facility], [place], [address], 09/20/2024 13:08:08 09/20/19 25 09/20/2024 MAGNE SIUM magnesium 2.2 mg/dL 1.6-2. 3 normal Not Available [facility] ([facility]) [address] [facility], [place], [address], 09/20/2024 13:08:09 07/11/19 25 07/05/2024 , [facility] ardio gram No observ ation record ed. [address], [place], [address], 07/10/2024 15:10:41 09/27/19 25 LDCT, chest , for lung cance r scree brian No observ ation record ed. [email or web address] [address], [address], 09/27/2024 15:05:49 Result Notes None recorded. Problems Name Problem SNOMED Code Status Onset Date Resolution Date Notes Provider Name and Address Organization Details Recorded Time Suspecte d COVID-19 052309193 Completed 05/19/2020 Removal Reason: Problem added by user [email or web address] from the COVID-19 watch flag Nilda Salazar null, [place] - [facility] 1 12:16:23 Asthma 244850194 Completed 201503/11/2019 Serene Rodriguez [place] - [facility] 9 12:05:51 Chronic obstruct lisset pulmonar y disease 15642884 Active 2015 Nilda Torresrod [place] [facility] 0 14:16:06 History of depressi on 005843994 Completed 201508/03/2017 Serene Rodriguez [place] [facility] 8 13:45:42 Low back pain 202292793 Completed 201508/18/2020 Serene Rodriguez [place] [facility] 1 12:12:43 Tobacco user 562751384 Active 2015 Nilda Salazar [place] [facility] 0 14:16:06 Stented coronary artery 051758578 Active 2016 Rafael Whatley MD [address], [place], [address] , [place] - [facility] 3 12:52:47 Depressi ve disorder 06424913 Completed 201803/11/2019 Serene Rodriguez [place] [facility] 9 12:05:26 Chronic depressi on 808649012 Active 2018 Rafael Whatley MD [address], [place], [address] , [place] [facility] 3 12:52:36 Otitis media 95190688 Completed 201906/25/2019 Sreene Rodriguez angelica, [place] - [facility] 0 14:28:46 Benign hyperten mey 60072444 Active 2020 Rafael Whatley MD [address], [place], [address] , [place] [facility] 3 12:52:30 Chronic back pain 052156047 Active 2020 Rafael Whatley MD [address], [place], [address] , [place] [facility] 3 12:52:33 COVID-19 262924797 Completed 202106/29/2021 Nilda Meneses RN [address], [place], [address] , [place] [facility] 2 11:53:20 Mixed hyperlip idemia 902863105 Active 2021 Rafael Whatley MD [address], [place], [address] , [place] [facility] 3 12:52:41 Arthriti s of right knee joint 86968372197 31449 Active 2021 Rafael Whatley MD [address], [place], [address] , [place] [facility] 3 12:52:27 Pain in right foot 29203852046 9107 Active 2021 Alyssa Olson, [employer] 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 [address], [place], [address] , [place] [facility] 2 15:53:47 Pain of right knee joint 18933859804 4100 Active 2021 Alyssa Olson, [employer] 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 [address], [place], [address] , [place] [facility] 2 15:53:59 Prediabe sharif 335353612 Active 2024 Juwan Gomes PA-C [address], [place], [address] , [place] [facility] 5 14:15:53 Insomnia 812589084 Active 2024 Juwan Gomes PA-C [address], [place], [address] , [place] [facility] 5 14:15:59 Spasm 57031025 Active 2024 Juwan Gomes PA-C [address], [place], [address] , [place] - [facility] 5 14:16:03 Tobacco dependen ce caused by cigarett es 84444025029 635386 Active 2024 Juwan Gomes PA-C [address], [place], [address] , [place] - [facility] 5 10:14:09 Cramp in lower limb 082054547 Active 2024 Juwan Gomes PA-C [address], [place], [address] , [place] - [facility] 5 10:36:33 Body mass index 30+ - obesity 073250628 Active 2024 Juwan Gomes PA-C [address], [place], [address] , [place] - [facility] 5 10:38:18 Acute exacerba tion of chronic obstruct lisset pulmonar y disease 460606717 Active 2024 Juwan Gomes PA-C [address], [place], [address] , [place] - [facility] 5 10:41:45 Nodule of lung 264757227 Active 2024 Juwan Gomes PA-C [address], [place], [address] , [place] - [facility] 5 16:06:52 Problem Notes None recorded. Procedures Surgical History Date Name Laterality Status Provider Name and Address Organization Details Recorded Time 12/25/19 24 total knee replacement completed Crystal Marie [place] - [facility] 01/03/2024 08:41:46 09/08/19 24 Joint Injection completed Rafael Whatley MD [address], [place], [address], [place] [facility] 09/08/2023 12:04:18 07/18/19 24 Advance Care Planning completed Cristian Alvarez [place] - [facility] 07/17/2023 14:45:59 07/18/19 24 Functional Status Assessed completed Cristian Alvarez [place] - [facility] 07/17/2023 14:45:59 04/28/19 24 Knee Surgery completed Kayla Hui [place] - [facility] 07/21/2023 13:28:09 11/08/19 23 Joint Injection completed Rafael Whatley MD [address], [place], [address], [place] [facility] 11/07/2022 17:55:58 08/20/19 Joint Injection completed Rafael Whatley MD [address], [place], [address], [place] [facility] 08/19/2022 11:03:03 05/02/19 23 Joint Injection completed Rafael Whatley MD [address], [place], [address], [place] [facility] 05/02/2022 11:28:15 03/11/20 22 Joint Injection completed Rafael Whatley MD [address], [place], [address], [place] [facility] 03/16/2022 14:13:57 12/16/19 22 [...] 11:51:01 11/01/19 17 Advance Care Planning completed Leaenne Russ [place] - [facility] 10/31/2016 10:00:44 09/07/19 17 Endoscopy completed Nilda Meneses RN [address], [place], [address], [place] [facility] 09/07/2018 16:44:54 08/23/19 17 Cataract Surgery completed Kayla Staples [place] - [facility] 08/03/2017 13:22:15 03/14/19 84 cholecystectomy completed Serene Rodriguez [place] - [facility] 08/18/2020 12:06:10 Stress test completed Kayla Denisafrancia [place] - [facility] 07/21/2023 13:28:09 Cardiac Cath completed Kayla Hui [place] - [facility] 07/21/2023 13:28:09 Imaging Results None recorded. Procedure Notes None recorded. Medical Equipment None Reported. Allergies Allergen ID Allergen Name Allergen Category Reaction Reaction Severity Criticality Documentation Date Start Date Code Code System Note Provider Name and Address Organization Details Recorded Time 883987 meclizine medicatio n hives Not available Not available 03/04/20252008 6676 RxNorm Not Available sharon - External Data Service - prod 5 12:08:12 18434 Antivert medicatio n hives Not available Not available 01/15/20162008 52308 RxNorm Not Available [facility] 6 09:55:50 Medications Name Sig Start Date [...] on: 09/07/19 10;Indic ation: Pharyngi tis - (4620 00);Prin deangelo: 08/28/19 10 Not Available Not Available [...] ser: [email or web address] ;Indicat ion: Depressi on - (3110 00);Prin deangelo: 05/09/19 09 Not Available Not Available [...] (BMI) Body weight Body temperature Oxygen saturation Heart rate Respiratory rate Systolic And Diastolic Provider Name and Address Organization Details Last Updated DateTime 5 160.02 cm 37.7 kg/m2 86247.1 7 g 97.3 [degF] 96 % 79 /min 18 /min 118/70 mm[Hg] Katya Daigle [place] - [facility] 5 13:10:09 Date Recorded Body height Body mass index (BMI) Body weight Heart rate Oxygen saturation Systolic And Diastolic Provider Name and Address Organization Details Last Updated DateTime 5 160.02 cm 39 kg/m2 81379.0 2 g 84 /min 96 % 116/74 mm[Hg] Saima Castillo [facility] 5 10:58:25 Date Recorded Body height Body mass index (BMI) Body weight Heart rate Oxygen saturation Systolic And Diastolic Provider Name and Address Organization Details Last Updated DateTime 5 160.02 cm 38.6 kg/m2 88474.1 4 g 83 /min 96 % 120/78 mm[Hg] Saima [facility] 5 13:14:25 Date Recorded Body height Body mass index (BMI) Body weight Heart rate Oxygen saturation Systolic And Diastolic Provider Name and Address Organization Details Last Updated DateTime 5 160.02 cm 39.3 kg/m2 659742. 51 g 86 /min 96 % 122/80 mm[Hg] Saima Castillo [facility] 5 09:53:07 Social History Question Answer Notes LastModified by [email or web address] ion Details LastModified Time Tobacco Smoking Status Current Every Day Smoker Nilda Salazar angelica [facility] 03/11/2019 11:49:26 Able To Swim? Yes Informati on not available 10/31/2016 Do You Have An Advance Directive? No [email or web address] Information not available 10/31/2016 Do You Wear A Helmet When Biking? Yes [email or web address] Information not available 10/31/2016 Are You Blind Or Do You Have Difficulty Seeing? No [email or web address] Information not available 10/31/2016 Is Blood Transfusion Acceptable In An Emergency? No Information not available 07/21/2023 What Is Your Level Of Caffeine Consumption? Moderate [email or web address] Information not available 10/31/2016 How Much Tobacco Do You Chew? None Information not available 07/21/2023 Are You Deaf Or Do You Have Serious Difficulty Hearing? No Information not available 10/31/2016 What Type Of Diet Are You Following? REGULAR [email or web address] Information not available 10/31/2016 Which Illicit Or Recreational Drugs Have You Used? Denies [email or web address] Information not available 10/31/2016 What Is The Highest Grade Or Level Of School You Have Completed Or The Highest Degree You Have Received? [id number] Information not available 07/21/2023 Swimming/diving Yes [email or web address] Informa tion not available 10/31/2016 Have There Been Any Changes To Your Family Or Social Situation? No Information no t available 11/07/2022 What Is The Fluoride Status Of Your Home? Unknown Information not available 11/07/2022 Hard Of Hearing Or Deaf In One Or Both Ears? No [email or web address] Information not available 10/31/2016 Single Or Multi-level Home/work? Single Level Home [email or web address] Information not available 10/31/2016 Legally Blind In One Or Both Eyes? No [email or web address] Information no t available 10/31/2016 Live Alone Or With Others? With Others [email or web address] Information not available 10/31/2016 Marital Status Single Informat ion not available 10/31/2016 Do You Have A Medical Power Of Associate Marketing Manager? No Information not available 11/07/2022 What Was The Date Of Your Most Recent Tobacco Screening? 09/19/2024 Information not available 09/19/2024 How Many Children Do You Have? 2 [email or web address] Information not available 10/31/2016 What Is Your Current Pack Years? [email or web address] Information not available 03/11/2022 What Is Your Relationship Status? Information not available 07/21/2023 Do You Use Your Seat Belt Or Car Seat Routinely? Yes Information not available 07/21/2023 Seat Belts Used Routinely Yes [email or web address] Information not available 10/31/2016 Are You Sexually Active? No Information not available 11/07/2022 Smoke Alarm In Home Yes [email or web address] Information not available 10/31/2016 Do You Have Smoke And Carbon Monoxide Detectors In Your Home? No Information not available 11/07/2022 At What Age Did You Start Smoking Tobacco? 15 Information not available 03/11/2022 Are You Passively Exposed To Smoke? No Information no t available 11/07/2022 How Much Tobacco Do You Smoke? 1 PPD Information not available 03/11/2022 Do You Use Sunscreen Routinely? Yes [email or web address] Information not available 10/31/2016 Has Tobacco Cessation Counseling Been Provided? Yes [email or web address] Information not available 10/31/2016 On What Date Was Tobacco Cessation Counseling Provided? 09/19/2024 [email or web address] Information not available 09/19/2024 How Many Years Have You Smoked Tobacco? 47 Information not available 06/13/2023 Do You Have Difficulty Walking Or Climbing Stairs? No [email or web address] Information not available 10/31/2016 Sex: Female Functional Status Question Answer Note LastModified by Organizat ion Details LastModified Time Do you or have you ever used smokeless tobacco? Never used smokeless tobacco Information not available 07/21/2023 Are you currently employed? No disabled Information not available 11/07/2022 Do you have transportation difficulties? No Information not available 11/07/2022 Urinary incontinence assessment performed? Yes [email or web address] Information not available 10/31/2016 Are you able to care for yourself independently? Yes [email or web address] Information not available 10/31/2016 Do you have difficulty dressing, bathing, grooming, or toileting? No [email or web address] Information not available 10/31/2016 Do you or have you ever used e-cigarettes or vape? Never used electronic cigarettes Information not available 07/21/2023 What is your exercise level? None [email or web address] Information not available 10/31/2016 Do you use any illicit or recreational drugs? No Information not available 11/07/2022 Do you or have you ever used any other forms of tobacco or nicotine? No Information not available 11/07/2022 What is your level of alcohol consumption? None [email or web address] Information not available 10/31/2016 Are you able to walk independently without assistance or assistive devices? [email or web address] Information not available 10/31/2016 Do you have difficulty doing errands alone? No [email or web address] Information not available 10/31/2016 Mental Status Question Answer Note LastModified by Organizat ion Details LastModified Time Do you feel stressed (tense, restless, nervous, or anxious, or unable to sleep at night)? [id number] Information not available 11/07/2022 Do you have difficulty concentrating, remembering or making decisions? No Information no t available 10/31/2016 Family History [...] 2023 13:28:07 Brother Chronic obstructive pulmonary disease [email or web address] Not available 2017 13:23:35 Paternal Uncle Malignant [...] Time Tdap 11/01/19 17 completed Not Available [facility] 04/27/2019 03:54:32 Td (adult), 2 Lf tetanus toxoid, preservative free, adsorbed 06/20/18 97 completed CLAUDIA Cross - [facility] 04/18/2022 15:27:58 Influenza, split virus, quadrivalent, preservative 03/11/20 19 cancelled patient objection Not Available [facility] 04/27/2019 03:56:16 Past Encounters Encounter ID Performer Location Encounter Start Date Encounter Closed Date Diagnosis/Indication Diagnosis SNOMED-CT Code Diagnosis ICD10 Code Diagnosis IMO Codes Diagnosis Note [id number] Irineo Burrows MD [address] [place] [address] 01/21/2016 08:17:30 01/22/2016 09:01:18 Low back pain 069368704 M54.5 Acute urin ina tract infection 244826959 N39.0 Acute low back pain 2788 59075 M54.5 [id number] Irineo Burrows MD [address] [place] [address] 02/09/2016 11:13:16 02/09/2016 12:48:32 Low back pain 420713875 M54.5 Chronic ob structive pulmonary disease 24337044 J44.9 History of depression 16 8448774 Z86.59 Asthma 456321963 J45.90 9 Tobacco user 053519021 Z 72.0 [id number] Kristin Alvares [address] [address] 05/16/2016 11:07:49 05/16/2016 12:02:44 Cigarette smoker 58256585 F17.210 pt to start after illness Body mass index 30+ - obesity 608631422 Z68.39 Viral gastroenteritis 11 2607353 A08.4 Asthma 636264979 J45.90 9 Chronic ob structive pulmonary disease 26813026 J44.9 Candidiasis of skin 4988 3006 B37.2 Upper resp iratory infection 47429172 J06.9 [id number] Kristin Alvares [address] [place] [address] 07/06/2016 15:12:40 07/07/2016 07:27:54 Renewal of prescription 812449459 Z76.0 Moderate c hronic obstructive pulmonary disease 228003409 J44.9 Cough 06200012 R05 [id number] Kristin Alvares [address] [place] [address] 07/11/2016 13:29:32 07/11/2016 14:54:32 Chronic obstructive pulmonary disease 87296386 J44.9 Upper resp iratory infection 32921179 J06.9 Conjunctivitis 9672863 H 10.9 [id number] Serene Rodriguez [address] [place] [address] 07/18/2016 12:23:00 07/18/2016 13:34:32 Renewal of prescription 748646988 Z76.0 Pruritic rash 68676620 L 28.2 [id number] Serene Rodriguez [address] [place] [address] 10/31/2016 09:52:37 10/31/2016 11:46:41 General examination of patient 532233846 Z00.00 Viral screening 56937800 4 Z11.59 Vaccination required 170 891331 Z28.3 Screening for malignant neoplasm of colon 847856303 Z12.11 Body mass index 30+ - obesity 876886078 Z68.36 Fibrocysti c disease of breast 65263256 N60.19 Chronic ob structive pulmonary disease 70012112 J44.9 Screening for cardiovascular system disease 667211397 Z13.6 Endocrine/ metabolic screening 370522299 Z13.228 Renewal of prescription 969760183 Z76.0 [id number] Serene Rodriguez [address] [place] [address] 12/05/2016 13:49:32 12/05/2016 14:52:22 Body mass index 30+ - obesity 644906844 Z68.36 Contact dermatitis 71585 004 L25.9 Renewal of prescription 152363405 Z76.0 [id number] Kristin Alvares [address] [place] [address] 12/14/2016 09:20:50 12/14/2016 15:01:40 Pain of elbow region 62800048 M25.630 [id number] Serene Rodriguez [address] [place] [place] [address] 03/13/2017 08:33:21 03/13/2017 09:37:50 Dyspnea 863159402 R06.00 [id number] Serene Rodriguez [address] [place] [address] 08/03/2017 12:49:35 08/03/2017 16:39:02 Stented coronary artery 721831315 Z95.5 Chronic ob structive pulmonary disease 80450333 J44.9 Asthma 616435227 J45.90 9 Low back pain 726069312 M54.5 Body mass index 30+ - obesity 793185377 Z68.36 Obesity 427370891 E66.9 Contact dermatitis 59395 004 L25.9 Insomnia 231696310 G47.0 0 Renewal of prescription 652104060 Z76.0 Moderate c hronic obstructive pulmonary disease 781594161 J44.9 Gastroesop hageal reflux disease 449969732 K21.9 [id number] Serene Rodriguez [address] [place] [address] 08/24/2017 13:30:56 08/24/2017 15:22:15 Knee pain 57485953 M25.561 Swelling o f knee joint 798986109 M25.469 Edema of l ower extremity 432204157 R60.0 Abdominal pain 87942293 R10.9 Pain provo ked by walking 313829652 R52 Smoker 45899520 F17.474 [id number] Serene Rodriguez [address] [place] [address] 11/02/2017 13:28:10 11/02/2017 14:55:23 Anxiety 80310348 F41.9 Depressive disorder 3548 9007 F32.9 Abnormal g rief reaction 270888340 F43.20 [id number] Serene Rodriguez [address] [place] [address] 01/08/2018 10:39:32 01/08/2018 11:27:49 Depressive disorder 20726799 F32.9 Anxiety 62798832 F41.9 Vertigo 114982161 R42 Upper resp iratory infection 57105919 J06.9 [id number] Serene Rodriguez [address] [place] [address] 05/15/2018 11:17:50 05/15/2018 12:28:29 Sudden visual loss 97305596 H53.131 Headache 33532074 R51 Dizziness 000688396 R42 [id number] Serene Rodriguez [address] [place] [address] 06/07/2018 15:41:29 06/12/2018 12:06:37 Fever 484583973 R50.9 Chronic ob structive pulmonary disease 16130424 J44.9 Acute exac erbation of chronic obstructive pulmonary disease 987313738 J44.1 [id number] Sereneyaakov Rodriguez [address] [place] [address] 03/11/2019 11:24:54 03/11/2019 12:15:43 Administration of influenza vaccine 39237249 Z23 Acute exac erbation of chronic obstructive pulmonary disease 138716243 J44.1 Chronic ob structive pulmonary disease 28933929 J44.9 Fever 354674233 R50.9 Smoker 01709074 F17.200 Recent weight loss 16891 7000 R63.4 Influenza 7232360 J11.1 [id number] Irineo Burrows MD [address] [place] [address] 05/17/2019 13:39:14 05/17/2019 14:20:42 Cough 37133457 R05 Otitis media 09923541 H6 6.91 Chronic ob structive pulmonary disease 93383795 J44.9 [id number] Sereneyaakov Rodriguez [address] [place] [address] 06/25/2019 13:52:15 06/25/2019 15:00:39 Chronic obstructive pulmonary disease 70390585 J44.9 Chronic depression 33110 0009 F34.1 Pruritic rash 82963960 L 28.2 Insomnia 937974074 G47.0 0 [id number] Serene Short, [address] [place] [address] 09/27/2019 15:44:21 09/27/2019 16:43:38 Body mass index 25-29 - overweight 024682939 Z68.27 Ankle pain 266020165 M25 .572 Eruption 044002362 R21 Vitamin D deficiency 347 58020 E55.9 [id number] Serene Rodriguez [address] [place] [address] 04/17/2020 14:25:04 04/17/2020 15:14:50 Viral screening 711756639 Z11.59 Hypokalemia 51066831 E87 .6 Anxiety 62497936 F41.9 [id number] Serene Rodriguez[address] [place] [address] 08/18/2020 11:28:53 08/18/2020 12:22:27 Abdominal pain 26860248 R10.9 Benign hypertension 1072 5009 I10 stable Chronic ob structive pulmonary disease 93986478 J44.9 stable Chronic depression 44728 0009 F34.1 stable Smoker 08738315 F17.200 pt does not wish to quit at this time Chronic back pain 878432 002 G89.29 [id number] Serene Rodriguez[address] [place] [address] 09/03/2020 15:58:48 09/03/2020 16:32:49 Chronic back pain 544928468 G89.29 Benign hypertension 1072 5009 I10 stable Chronic depression 27384 0009 F34.1 stable Chronic ob structive pulmonary disease 65795733 J44.9 stable Abdominal pain 28143770 R10.9 Gastroesop hageal reflux disease 393667594 K21.9 [id number] Kristin Alvares[address] [place] [address] 03/03/2021 08:38:33 03/03/2021 09:22:57 Spasm of back muscles 252364802 M62.208 [id number] Herrera Barrera DO [address] [place] [address] 04/19/2021 15:34:19 04/19/2021 16:18:50 Cough 13745980 R05.9 COVID-19 162928377 U07.1 [id number] Alyssa Olson [address] [place]. [place] [address] 4 12/15/2021 10:17:43 12/15/2021 11:32:18 Body mass index 30+ - obesity 764562124 Z68.35 Obesity 811580674 E66.3 Screening for malignant neoplasm of colon 783936109 Z12.11 Arthritis of right knee joint 2883711590 606902 M13.493 [id number] Alyssa Olson [address] clar[address] Hernandez. [place] [address] 4 12/30/2021 14:23:59 12/30/2021 15:18:13 Viral screening 394766277 Z11.52 Positive for COVID, Negative for Flu A&B per rapid testing [id number] Alyssakennedy Olson [address] [place] [address] 4 01/21/2022 15:36:50 01/21/2022 16:10:45 Pain of right knee joint 2212421784 87913 M25.884 [id number] Rafael Whatley MD [address] [place] [address] 03/11/2022 12:31:18 03/11/2022 13:54:21 Body mass index 30+ - obesity 546493294 Z68.36 Pain of ri ght knee joint 0300651354 08834 M25.664 [id number] Rafael Whatley MD [address] [place] [address] 04/18/2022 15:16:44 04/18/2022 17:00:37 Spasm 98217339 R25.2 Pt will use OTC Mg supplement s, as well [id number] Rafael Whatley MD [address] [place] [address] 05/02/2022 10:42:54 05/02/2022 11:30:27 Arthritis of right knee joint 9071628619 483698 M13.861 Body mass index 30+ - obesity 351463218 Z68.36 Obesity 085004613 E66.9 Spasm of back muscles 20 5329196 M62.830 resolved, check K+ and Mg2+ at next appt [id number] Rafael Whatley MD [address] [place] [address] 4 05/30/2022 10:46:54 05/30/2022 12:56:36 Arthritis of right knee joint 7452613034 423726 M13.861 very good resolution with injection and weight loss Body mass index 30+ - obesity 946582498 Z68.36 Pt actively working on weight loss, [facility] [id number] Rafael Whatley MD [address] [place] [address] 08/19/2022 08:06:44 08/19/2022 08:50:10 Arthritis of right knee joint 6121244086 510487 M13.861 very good resolution with injection and weight loss [id number] Rafael Whatley MD [address] [place] [address] 11/07/2022 15:29:14 11/07/2022 16:50:47 Arthritis of right knee joint 0979029498 879471 M13.861 Pt tolerated injection well Bilateral plantar fasciitis 9063823347 4165757 M72.2 Pt trying cold rolls for now [id number] Rafael Whatley MD [address] [place] [address] 4 01/06/2023 14:11:43 01/06/2023 15:04:28 Pain of right knee joint 9139533355 84467 M25.089 [id number] Rafael Whatley MD [address] [place] [address] 02/03/2023 10:49:24 02/03/2023 12:46:21 Screening for malignant neoplasm of colon 441016427 Z12.11 pt has cologuard box encouraged to use Screening for malignant neoplasm of respiratory tract 492577753 Z12.2 pt declines Nicotine d ependence with current use 217576720 F17.210 Current tobacco user Former hea vy tobacco smoker 2027964365 92620 Z87.891 Former tobacco user Body mass index 30+ - obesity 130728567 Z68.36 Pt actively working on weight loss, encouragem ent provided Obesity 562034305 E66.9 Pain of ri ght knee joint 0408578395 80881 M25.894 [id number] Rafael Whatley MD [address] [place] [address] 02/27/2023 15:31:55 02/27/2023 16:10:29 Dysfunction of bilateral eustachian tubes 2831188490 620456 H69.93 Arthritis of right knee joint 0507965155 534508 M13.516 [id number] Rafael Whatley MD [address] [place] [address] 4 04/11/2023 10:34:07 04/11/2023 11:39:51 Arthritis of right knee joint 9523244666 521805 M13.861 Cellulitis of breast 758 05398 N61.0 [id number] Rafael Whatley MD [address] [place] [address] 06/13/2023 09:10:57 06/13/2023 09:29:16 Arthritis of right knee joint 3147166074 746964 M13.861 Body mass index 30+ - obesity 573623648 Z68.38 Pt actively working on weight loss, encouragem ent provided Obesity 916927810 E66.9 Tobacco user 321041663 Z 72.0 [id number] Rafael Whatley MD [address] [place] [address] 07/18/2023 09:32:37 07/18/2023 10:23:27 Adult health examination 265918670 Z00.00 Depression screening 171 794160 Z13.31 A depression screening was completed via a standardiz ed screening tool. 5 minutes were spent discussing depression screening results and risk factors. Examinatio n of blood pressure 512055884 Z01.30 Diet education 20591023 Z71.3 Counseling 531941745 Z71 .82 Exercise counseling . Patient encouraged to exercise 30 minutes 5 days a week. [facility] for falls 574165237 Z91.81 STEADI FAST screening score of _5____. Advance care planning 71 2428821 Z71.89 Body mass index 30+ - obesity 422574242 Z68.39 Pt actively working on weight loss, encouragem ent provided Obesity 882195160 E66.9 Screening mammography 24 209750 Z12.31 Hyperlipid emia screening 186597799 Z13.220 Endocrine/ metabolic screening 540183631 Z13.228 HIV screening 101727236 Z11.4 Screening for malignant neoplasm of colon 151324438 Z12.11 Pain of ri ght knee joint 5200069553 03885 M25.561 Arthritis of right knee joint 7486116531 222424 M13.250 [id number] Rafael Whatley MD [address] [place] [address] 07/21/2023 13:25:33 07/21/2023 14:20:12 Vitamin D deficiency 07575145 E55.9 Hyperlipidemia 35152902 E78.5 continue current management [id number] Rafael Whatley MD [address] [place] [address] 4 09/08/2023 09:04:45 09/08/2023 10:25:55 Arthritis of right knee joint 1973814146 360123 M13.861 responded well to injection [id number] Rafael Whatley MD [address] [place] [place] [address] 10/19/2023 10:32:23 10/19/2023 11:37:18 Arthritis of right knee joint 6211996388 496269 M13.861 responded well to injection Vitamin D deficiency 347 36816 E55.9 refill requested [id number] Rafael Whatley MD [address] [place] [address] 12/01/2023 12:59:50 12/01/2023 14:43:44 Arthritis of right knee joint 9734233263 310848 M13.861 following with Ortho, procedure planned in 3 weeks Chronic ob structive pulmonary disease 52414522 J44.9 refill requested Body mass index 30+ - obesity 409802434 Z68.37 Pt actively working on weight loss, encouragem ent provided Obesity 542234293 E66.9 [id number] Rafael Whatley MD [address] [place] [address] 12/18/2023 13:37:27 12/18/2023 15:29:35 Body mass index 30+ - obesity 114410016 Z68.37 Pt actively working on weight loss, encouragem ent provided Obesity 765123834 E66.9 Pain of ri ght knee joint 6890633728 24638 M25.656 [id number] Rafael Whatley MD [address] [place] [address] 01/11/2024 11:35:33 01/11/2024 12:08:24 Pain of right knee joint 5806505902 40686 M25.537 [id number] Rafael Whatley MD [address] [place] [address] 01/25/2024 08:36:59 01/25/2024 10:03:25 Pain of right knee joint 4098878497 60909 M25.860 [id number] Rafael Whatley MD [address] [place] [address] 03/05/2024 10:16:43 03/05/2024 10:47:15 Pain of right knee joint 4293294495 00437 M25.668 [id number] Rafael Whatley MD [address] [place] [address] 04/09/2024 11:21:19 04/09/2024 12:51:37 Pain of right knee joint 8808516231 95358 M25.701 [id number] Rafael Whatley MD [address] [place] [address] 4 05/24/2024 11:33:33 05/24/2024 12:59:54 Pain of right knee joint 8657060074 44966 M25.561 Arthritis of right knee joint 0622131176 750824 M13.861 following with Ortho, [id number] Rafael Whatley MD [address] [place] [address] 06/17/2024 13:05:40 06/17/2024 14:52:35 Upper respiratory infection 58909467 J06.9 [id number] Juwna Gomes PA-C [address] [place] [address] 07/10/2024 10:27:06 07/10/2024 11:27:34 Chronic obstructive pulmonary disease 03136917 J44.9 Essential hypertension 08820668 I10 Hyperlipidemia 61328175 E78.5 Chronic depression 57669 0009 F32.A Peripheral edema 3072357 00 R60.9 Endocrine/ metabolic screening 889214696 Z13.228 Pain of ri ght knee joint 2663592961 57145 M25.561 Stented co ronary artery 203657047 Z95.5 [id number] Juwan Gomes PA-C [address] [address] 07/25/2024 12:45:39 07/25/2024 15:10:04 Prediabetes 852445197 R73.03 024085 Making dietary changes but also preferring to use medication . Insomnia 942146934 G47.0 9 58339 Cautioned risk of increased SI with antidepres pramod medication . Spasm 98967735 R25.2 59828 Cautioned side effect of sedation; do not take with other sedatives. Do not drink alcohol with medication . Do not operate machinery or drive after taking medication . [id number] Juwan Gomes PA-C [place] [address] [address] 09/19/2024 09:34:20 09/19/2024 10:46:56 Benign hypertension 12316829 I10 Check BP at home. Try to [...] present. Tobacco de pendence caused by cigarettes 7294765944 3638829 F17.659 4884983 Cramp in lower limb 4499 95451 R25.2 306996 Cautioned side effect of sedation; do not take with other sedatives. Do not drink alcohol with medication . Do not operate machinery or drive after taking medication . Body mass index 30+ - obesity 940245642 E66.9 5593827 Encouraged healthy diet and food journaling , open to [employer]. encouraged use of apps such as:My maco [employer]urg[employer] Diet CoachLose It!In addition to paper and pen food journal. Calorie deficit necessary for weight loss. Pay attention to food labels, keep track of calorie intake. Attempt to increase exercise. Acute exac erbation of chronic obstructive pulmonary disease 823491903 J44.1 563118 Discussed supportive care with patient. Advised to [...] signs and sxs to seek further treatment. [id number] Juwan Gomes PA-C [facility] [address] [place] [address] 10/21/2024 14:30:48 10/21/2024 16:07:12 Acute exacerbation of chronic obstructive pulmonary disease 680483741 J44.1 200615 Discussed supportive care with patient. Advised to [...] Name 02/03/2023 1 PASSPORT HEALTH PLAN BY [employer] (MEDICARE REPLACEMENT/ ADVANTAGE - HMO) Anette Ng [id number] Anette Gomes 04/11/2023 1 PASSPORT HEALTH PLAN BY [employer] (MEDICARE REPLACEMENT/ ADVANTAGE - HMO) Anette Gomes [id number] Anette Gomes 02/03/2023 [place] - [facility] (MEDICARE) Anette Gomes [id number] Anette Gomes 09/17/2022 1 PASSPORT BY [employer] - DUAL ELIGIBLE (MEDICARE REPLACEMENT/ ADVANTAGE - HMO) Anette Ng [id number] Anette Gomes 11/07/2022 2 PASSPORT BY [employer] - DUAL ELIGIBLE (MEDICARE REPLACEMENT/ ADVANTAGE - HMO) Anette Gomes [id number] Anette Gomes 08/19/2022 1 PASSPORT HEALTH PLAN BY [employer] (MEDICARE REPLACEMENT/ ADVANTAGE - HMO) Anette Ng [id number] Anette Gomes 08/19/2022 2 PASSPORT HEALTH PLAN BY [employer] (MEDICARE REPLACEMENT/ ADVANTAGE - HMO) Anette Ng [id number] Anette Gomes 08/19/2022 2 PASSPORT BY [employer] - DUAL ELIGIBLE (MEDICARE REPLACEMENT/ ADVANTAGE - HMO) Anette Ng [id number] Anette Gomes 08/19/2022 1 PASSPORT BY [employer] ([facility]) Anette Ng [id number] Anette Gomes 04/19/2021 [place] [id number] Anette Ng [id number] Anette Gomes 06/24/2021 [facility] [place] [facility]-[place] [place]MED[place] Anette Ng [id number] Anette Gomes 06/24/2021 2 [place] Anette Ng [id number] Anette Juradosey 08/19/2022 1 [place]MED[place]ACEMENT [place]) [id number] Anette Ng [id number] Anette Gomes 09/17/2022 2 [place] Anette Ng [id number] Anette Gomes 08/03/2021 2 [facility] ([place] - [place] Anette Ng [id number] Anette Gomes 04/19/2021 1 [employer] [place] (MEDICA[place] H[place]) [id number] Anette Ng [id number] Anette Gomes 06/07/2018 1 *SELF PAY* Co david Gomes 04/19/2021 1 [place] Anette Ng [id number] Anette Gomes 06/06/2016 1 UNSPECIFIED REMIT PAYOR Anette Gomes 11/25/2024 1 [place] [id number] Anette Gomes [id number] Anette Gomes 08/19/2022 2 PASSPORT BY [employer] (MEDICAID REPLACEMENT - HMO) Anette Ng [id number] Anette Gomes 04/19/2021 [place] [id number] Anette Ng [id number] Anette Gomes 04/19/2021 [place] [id number] Anette Ng [id number] Anette Gomes Notes Date Note Type Note [...] contacts. Rafael Whatley MD [address], [place], [address], [place] [facility] 06/17/2024 16:16:04 07/10/2024 text/html Patient presents to office requesting refills on Anoro inhaler. Patient has hx of COPD. Patient would also like to discuss diuretic, states lasix has caused severe muscle pain. Recent visit with Dr. Ayala, following H7rmxlyl. Has been having increased right knee pain, december had repeat knee surgery with [facility]. Pt denies chest pain, SOA at rest, difficulty eating or drinking, changes in bathroom habits, syncope/presyncope, or any other concerns. Juwan Gomes PA-C [address], [place], [address], [place] [facility] 07/10/2024 11:26:35 07/25/2024 text/html [...] pain. Recent visit with Dr. Ayala, following N8vkreat. Has been having increased right knee pain, december had repeat knee surgery with [place]. Pt denies chest pain, SOA at rest, difficulty eating or drinking, changes in bathroom habits, syncope/presyncope, or any other concerns. Juwan Gomes PA-C [address], [place], [address], [facility] - [facility] 07/25/2024 21:02:26 09/19/2024 text/html Patient [...] concerns. Juwan Gomes PA-C [address], [place], [address], [facility] - [facility] 09/30/2024 13:13:07 10/21/2024 text/html 64yoF [...] or any other concerns. Juwan Gomes PA-C [facility] [address], [place], [address], [place] [facility] 10/22/2024 09:48:16 OBGyn Episode No OBEpisode recorded.
== END ==
LOC: SL 06:54
PROVIDERS: PCP Nurse Practitioner Family; Visit Provider Nurse Practitioner Family
DX: G47.33 Obstructive sleep apnea (adult) (pediatric) (principal); G47.36 Sleep related hypoventilation in conditions classified elsewhere
CPT/HCPCS: G0399

== ENCOUNTER 2025-03-13 13:35 | Outpatient (CLI) | payer MEDICARE, SELFPAY ==
[2025-03-13 20:37] LABS: Hematocrit 46.3 % (37.0-47.0); Hemoglobin 14.8 g/dL (12.2-16.2); Immature Granulocytes % 0.2 %; Mean Corpuscular HGB Conc 32.0 g/dL (31.8-35.4); Mean Corpuscular Hemoglobin 30.3 pg (27.0-31.2); Mean Corpuscular Volume 94.7 fl (81-99); Nucleated Red Blood Cells % 0 %; Platelet Count 185 K/mm3 (142-424); Red Blood Count 4.89 M/mm3 (4.20-5.40); Red Cell Distribution Width-SD 45.8 fL; White Blood Count 8.4 K/mm3 (4.8-10.8)
[2025-03-13 21:18] LABS: Alanine Aminotransferase 25 U/L (12-78); Albumin Level 4.0 g/dl (3.5-5.0); Albumin/Globulin Ratio 1.6 (1.1-1.8); Alkaline Phosphatase 80 U/L (38-126); Anion Gap 8.3 mEq/L (5-15); Aspartate Amino Transferase 28 U/L (14-36); Bilirubin,Total 0.4 mg/dl (0.2-1.3); Blood Urea Nitrogen 15 mg/dl (7-17); Calcium 9.3 mg/dl (8.4-10.2); Carbon Dioxide 29 mmol/L (22.0-30.0); Chloride 101 mmol/L (98-107); Cholesterol 187 mg/dl (140-200); Creatinine,Serum 1.00 mg/dl (0.52-1.04); Estimated Glomerular Filt Rate 56 ml/min (>60); GFR (African American) 68 ML/MIN (>60); Globulin 2.5 g/dL (1.3-3.2); Glucose 136 mg/dl (74-100); HDL Cholesterol 43 mg/dl (40-60); Potassium 4.3 mmoL/L (3.5-5.1); Sodium 134 mmol/L (136-145); Total Protein,Serum 6.5 g/dl (6.3-8.2); Triglycerides 167 mg/dl (30-150)
[2025-03-13 21:49] LABS: Thyroid Stimulating Hormone 2.52 uIU/mL (0.465-4.68)
[2025-03-13 22:06] LABS: Hepatitis C Ab Qual. W/ RFX NEGATIVE (Negative)
[2025-03-15 04:35] LABS: Hepatitis B Surface Antigen Negative (Negative)
--- OUTSIDE RECORDS SUMMARY | 2025-03-16 13:38 | XMS_ITS | Clinical Summary ---
Author Organization [facility] Phone Care Team Providers Care Post Partum Nurse Name Role Phone Unavailable Primary Care Provider [...] this topic Medical Devices Implanted Type Area Fur Scraper Device Identifier Shelf Expiration Date Model / Serial / Lot Kt Bone Cemnt [id number] [facility] - [id number] Implanted:Qty: 1 on 04/28/2023 by Carlos Holbrook MD at [facility] Right: Knee NITO:NITO 10/10/2025 [id number] / / [id number] Procedures Procedure Name Priority Date/Time Associated Diagnosis [...] EDT Impressions 08/24/2023 8:28 AM EDT Negative (GAM-Jbmullvk-0) ~ RECOMMENDATION: Routine screening mammogram in 1 [...] the next mammogram, in accordance with the [place] [employer] and the Society of Breast Imaging recommendations. Narrative 08/24/2023 8:28 AM EDT Procedure:MM MAMMO DIGITAL HORACE SCREEN BILAT ~ Reason for exam: screening, asymptomatic. Z12.31-Encounter for screening mammogram for malignant neoplasm of ixepav-YSZ-08-CM ~ MM MAMMO DIGITAL HORACE SCREEN BILAT [...] for screening mammogram for malignant neoplasm of ikmvhj-MWH-28-CM ~ MM MAMMO DIGITAL HORACE SCREEN BILAT Bilateral CC and MLO view(s) were taken. There are scattered fibroglandular densities. Prior study comparison: Compared with prior studies the most recentbeing 03/17/21 No mammographic evidence of malignancy. ~ IMPRESSION: Negative (NXH-Kgwortwu-0) ~ RECOMMENDATION: Routine screening mammogram in 1 [...] the next mammogram, in accordance with the [place] [employer] and the Society of Breast Imaging recommendations. 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 Plan / Payer (Ef fective 2015-Present) Name:Anette Gomes Relation to Subscriber:Employee Name:[employer] Date of :1966 (Home) Address: ATTN: ZAIRA Berry [address] [place] [address] Payer ID:Not on file Group ID:Not on file Type:Not on file Address: ATTN: ZAIRA Berry [address] [address] [place] [address] ANTH MEDICARE ADVANTAGE MR * Guarantor: [employer] Account Type Relation to Patient Date of Phone Billing Address [employer] 1966 ATTN: ZAIRA [address] [address] [place] [address] 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 Plan / Payer (Ef fective 2015-Present) Name:Anette Gomes Relation to Subscriber:Employee Name:[employer] Date of :1966 (Home) Address: ATTN: ZAIRA US [address] [address] [place] [address] Payer ID:Not on file Group ID:Not on file Type:Not on file Address: ATTN: ZAIRA US [address] [address] [place] [address] * Guarantor: [facility] Account Type Relation to Patient Date of Phone Billing Address Corporate Other [address] [facility] Attn: Shaneka [facility] [address] [place] [id number]
--- OUTSIDE RECORDS SUMMARY | 2025-03-16 13:38 | XMS_ITS | Data Portability ---
Author Organization [facility] Address [address] [place] [address] Assessment Encounter Date Assessment Date Assessment LastModified by Organization Details LastModified Time 07/10/2024 07/10/2024 review card records, get notes mark Not available 07/10/2024 11:24:16 10/21/2024 10/21/2024 Service was provided using audio [employer] . The patient verbally consents to virtual services and the consent is documented in the medical record prior to using the service. Patient is located at their place of residence in [facility]. Provider is located at medical clinic in [facility]. Names and roles of all persons participating in telemedicine services include:[email or web address] 15 minutes spent in discussion with patient [email or web address] Not available 10/22/2024 09:47:31 Plan of Treatment Reminders Order Date Submit Date Provider Last Modified By Organization Details Last Modified Time Details Appointments None recorded. Lab magnesium, serum or plasma 2024 025 SHARON [facility], [address], [address], [place], [address], 5 13:08:09 iron + total iron-tatum ng capacity (TIBC), serum 2024 025 SAHRON [facility], [address], [place], [place], [address], 5 13:08:07 cobalamin and folate panel, serum 2024 025 SHARON [facility], [address], [address], [place], [address], 5 13:08:08 CK (creatine kinase), total, serum 2024 025 SHARON [facility], [address], [address], [place], [address], 5 13:08:08 CMP, serum or plasma 2024 025 SHARON [facility], [address], [address], [place], [address], 5 13:08:06 CBC w/ auto diff 2024 025 SHARON [facility], [address], [place] [address], [place], [address], 5 13:08:05 TSH + free T4, serum 2024 025 SHARON [facility], [address], [place] [address], [place], [address], 5 07:41:01 magnesium, serum or plasma 2024 025 SHARON [facility], [address], [address], [place], [address], 5 07:41:05 CMP, serum or plasma 2024 025 SHARON [facility], [address], [address], [place], [address], 5 07:41:03 CBC w/ auto diff 2024 025 SHARON [facility], [address], [place], [place], [address], 5 07:41:02 HbA1c (hemoglobi n A1c), blood 2024 025 SHARON [facility], [address], [place], [place], [address], 5 07:41:04 vitamin D, 25-hydroxy , total, serum 2024 025 REAGAN [facility], [address], [place] [address], [place], [address], 5 07:41:[address]/dietiti an referral 2024 025 [facility], [address] [place] [address], [address], 5 17:45:17 Procedures None recorded. Surgeries None recorded. Imaging LDCT, chest, for lung cancer screening 2024 025 [facility], [address] [place] [address], [id number], 5 13:04:42 Medication Orders prednisone 20 mg tablet 2024 025 [facility], [address] [place] [address], [address], 5 15:00:55 azithromyc in 250 mg tablet 2024 025 [facility], [address] [place] [address], [address], 5 12:18:18 azithromyc in 250 mg tablet 2024 025 [email or web address] [facility], [address] [place] [address], [address], 5 12:16:35 prednisone 20 mg tablet 2024 025 [facility], [address] [place] [address], [address], 5 05:01:23 ipratropiu m 0.5 mg-albuter ol 3 mg (2.5 mg base)/3 mL nebulizati on soln 2024 025 [facility], [address] [place] [address], [place], [address], 5 10:40:08 nicotine 21 mg/24 hr daily transderma l patch 2024 025 [facility], [address] [place] [address], [address], 5 10:41:08 nicotine (polacrile x) 4 mg buccal lozenge [address], [place], [address], 5 10:41:08 trazodone 100 mg tablet 2024 025 [facility], [address] [place] [address], [address], 5 14:17:27 methocarba mol 500 mg tablet [address], [address], 5 14:17:27 metformin 500 mg tablet [address], [address], 5 14:16:34 furosemide 40 mg tablet [address], [address], 5 11:23:15 potassium chloride ER 10 mEq tablet,ext ended release 2024 025 [facility], [address] [place] [address], [address], 5 11:23:13 paroxetine 10 mg tablet 2024 025 [facility] - [address], [address], 5 11:23:11 meloxicam 15 mg tablet 2024 025 [facility] - [address], [address], 5 11:23:09 metoprolol succinate ER 25 mg tablet,ext ended release 24 hr [address], [address], 11:23:09 spironolac tone 100 mg tablet [address], [address], 5 11:23:10 clopidogre l 75 mg tablet [address], [address], 5 11:23:14 rosuvastat in 5 mg tablet [address], [address], 5 11:23:16 Anoro Ellipta 62.5 mcg-25 mcg/actuat ion powder for inhalation [address], [address], 5 11:23:10 Solu-Medro l (PF) 125 mg/2 mL solution for injection 2024 025 [email or web address] [facility], [address] [place] [address], [place], [address], 5 09:47:32 prednisone 20 mg tablet 2024 025 SHARON [facility], [address] [place] [address], [place], [address], 5 05:01:23 azithromyc in 500 mg tablet [address], [place], [address], 5 09:50:39 ceftriaxon e 1 gram solution for injection 2024 025 [email or web address] [facility], [address] [place] [address], [place], [address], 5 09:47:06 Patient TargetsNo targets recorded. Patient Instructions Encounter Date Encounter Id Patient Instructions Last Modified By Organization Details Last Modified Time 07/10/2024 [id number] medical record request* - Please provide recent visit note(s) and any relevant results [email or web address] Not available 07/18/2024 16:00:25 chronic obstructive pulmonary disease (COPD): care instructions [email or web address] Not available 07/10/2024 11:23:06 learning about copd and how to prevent lung infections [email or web address] Not available 07/10/2024 11:23:06 07/25/2024 [id number] insomnia: care instructions [email or web address] Not available 07/25/2024 14:16:33 All questions answered and pt/guardian satisfied with treatment plan. Call with changes RTC or ED if symptoms change or worsen Keep next interval checkup Cont. chronic meds as prescribed Chronic conditions are stable Discussed natural and expected course of this diagnosis and need to alert the office if symptoms do not follow expected course or if any worsens [email or web address] Not available 07/25/2024 21:01:15 09/19/2024 [id number] smoking cessatio n counseling, greater than 3 minutes up to 10 minutes* [email or web address] Not available 09/19/2024 10:40:07 body mass index: care instructions [email or web address] Not available 09/19/2024 10:38:41 learning about healthy weight [email or web address] Not available 09/19/2024 10:38:41 All questions answered and pt/guardian satisfied with treatment plan. Call with changes RTC or ED if symptoms change or worsen Keep next interval checkup Cont. chronic meds as prescribed Chronic conditions are stable Discussed natural and expected course of this diagnosis and need to alert the office if symptoms do not follow expected course or if any worsens [email or web address] Not available 09/19/2024 10:42:33 10/21/2024 [id number] All questions answered and pt/guardian satisfied with treatment plan. Call with changes RTC or ED if symptoms change or worsen Keep next interval checkup Cont. 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 Body mass index 30+ - obesity Referring Physician: Juwan Gomes, Family Medicine, Encounter Date: 09/19/2024 Results Created Date Observation Date Name Description Value Unit Range Abnormal Flag Note LastModifiedBy Organization Detail LastModifiedTime 07/11/1907/11/2024 TSH+F REE T4 TSH 2.260 uIU/m L 0.450- 4.500 normal Not Available [facility] ([facility]) [address] [facility], [place], [address], 07/11/2024 07:41:01 07/11/1907/11/2024 TSH+F REE T4 T4,free(dire ct) 1.44 NG/dL 0.82-1 .77 normal Not Available [facility] ([facility]) [address] [facility], [place], [address], 07/11/2024 07:41:01 07/11/19 25 07/11/2024 CBC WITH DIFFE RENTI AL/PL ATELE T WBC 6.5 x10e3 /uL 3.4-10 .8 normal Not Available [facility] ([facility]) [address] [place], [address], 07/11/2024 07:41:02 07/11/19 25 07/11/2024 CBC WITH DIFFE RENTI AL/PL ATELE T RBC 5.15 x10e6 /uL 3.77-5 .28 normal Not Available [facility] ([facility]) [address] [place], [address], 07/11/2024 07:41:02 07/11/19 25 07/11/2024 CBC WITH DIFFE RENTI AL/PL ATELE T hemoglobin 15.3 g/dL 11.1-1 5.9 normal Not Available [facility] ([facility]) [address] [place], [address], 07/11/2024 07:41:02 07/11/19 25 07/11/2024 CBC WITH DIFFE RENTI AL/PL ATELE T hematocrit 47.9 % 34.0-4 6.6 above high normal Not Available [facility] ([facility]) [address] [place], [address], 07/11/2024 07:41:02 07/11/19 25 07/11/2024 CBC WITH DIFFE RENTI AL/PL ATELE T MCV 93 fL 79-97 normal Not Available [facility] ([facility]) [address] [place], [address], 07/11/2024 07:41:02 07/11/19 25 07/11/2024 CBC WITH DIFFE RENTI AL/PL ATELE T MCH 29.7 pg 26.6-3 3.0 normal Not Available [facility] ([facility]) [address] [facility], [place], [address], 07/11/2024 07:41:02 07/11/19 25 07/11/2024 CBC WITH DIFFE RENTI AL/PL ATELE T MCHC 31.9 g/dL 31.5-3 5.7 normal Not Available [facility] ([facility]) [address] [facility], [place], [address], 07/11/2024 07:41:02 07/11/19 25 07/11/2024 CBC WITH DIFFE RENTI AL/PL ATELE T RDW 13.4 % 11.7-1 5.4 Not Available [facility] ([facility]) [address] [facility], [place], [address], 07/11/2024 07:41:02 07/11/19 25 07/11/2024 CBC WITH DIFFE RENTI AL/PL ATELE T platelets 239 x10e3 /uL 150-45 0 normal Not Available [facility] ([facility]) [address] [facility], [place], [address], 07/11/2024 07:41:02 07/11/19 25 07/11/2024 CBC WITH DIFFE RENTI AL/PL ATELE T neutrophils 59 % not estab. normal Not Available [facility] ([facility]) [address] [facility], [place], [address], 07/11/2024 07:41:02 07/11/19 25 07/11/2024 CBC WITH DIFFE RENTI AL/PL ATELE T lymphs 29 % not estab. normal Not Available [facility] ([facility]) [address] [facility], [place], [address], 07/11/2024 07:41:02 07/11/19 25 07/11/2024 CBC WITH DIFFE RENTI AL/PL ATELE T monocytes 6 % not estab. normal Not Available [facility] ([facility]) [address] [place], [address], 07/11/2024 07:41:02 07/11/19 25 07/11/2024 CBC WITH DIFFE RENTI AL/PL ATELE T eos 3 % not estab. normal Not Available [facility] ([facility]) [address] [place], [address], 07/11/2024 07:41:02 07/11/19 25 07/11/2024 CBC WITH DIFFE RENTI AL/PL ATELE T basos 2 % not estab. 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 0 normal Not Available [facility] ([facility]) [address] [place], [address], 07/11/2024 07:41:02 07/11/19 25 07/11/2024 CBC WITH DIFFE RENTI AL/PL ATELE T lymphs (absolute) 1.9 x10e3 /uL 0.7-3. 1 normal Not Available [facility] ([facility]) [address] [place], [address], 07/11/2024 07:41:02 07/11/19 25 07/11/2024 CBC WITH DIFFE RENTI AL/PL ATELE T monocytes(ab solute) 0.4 x10e3 /uL 0.1-0. 9 normal Not Available [facility] ([facility]) [address] [place], [address], 07/11/2024 07:41:02 07/11/19 25 07/11/2024 CBC WITH DIFFE RENTI AL/PL ATELE T eos (absolute) 0.2 x10e3 /uL 0.0-0. 4 normal Not Available [facility] ([facility]) [address] [facility], [place], [address], 07/11/2024 07:41:02 07/11/19 25 07/11/2024 CBC WITH DIFFE RENTI AL/PL ATELE T baso (absolute) 0.1 x10e3 /uL 0.0-0. 2 normal Not Available [facility] ([facility]) [address] [facility], [place], [address], 07/11/2024 07:41:02 07/11/19 25 07/11/2024 CBC WITH DIFFE RENTI AL/PL ATELE T immature granulocytes 1 % not estab. Not Available [facility] ([facility]) [address] [facility], [place], [address], 07/11/2024 07:41:02 07/11/19 25 07/11/2024 CBC WITH DIFFE RENTI AL/PL ATELE T immature grans (abs) 0.0 x10e3 /uL 0.0-0. 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 METAB OLIC PANEL (14) glucose 93 mg/dL 70-99 normal Not Available [facility] ([facility]) [address] [facility], [place], [address], 07/11/2024 07:41:03 07/11/19 25 07/11/2024 COMP. METAB OLIC PANEL (14) BUN 14 mg/dL 8-27 normal Not Available [facility] ([facility]) [address] [facility] [place], [address], 07/11/2024 07:41:03 07/11/19 25 07/11/2024 COMP. METAB OLIC PANEL (14) creatinine 0.92 mg/dL 0.57-1 .00 normal Not Available [facility] ([facility]) [address] [place], [address], 07/11/2024 07:41:03 07/11/19 25 07/11/2024 COMP. METAB OLIC PANEL (14) eGFR 70 mL/mi n/1.7 3 >59 normal Not Available [facility] ([facility]) [address] [place], [address], 07/11/2024 07:41:03 07/11/19 25 07/11/2024 COMP. METAB OLIC PANEL (14) BUN/creatini ne ratio 15 12-28 normal Not Available [facility] ([facility]) [address] [place], [address], 07/11/2024 07:41:03 07/11/19 25 07/11/2024 COMP. METAB OLIC PANEL (14) sodium 141 mmol/ L 134-14 4 normal Not Available [facility] ([facility]) [address] [place], [address], 07/11/2024 07:41:03 07/11/19 25 07/11/2024 COMP. METAB OLIC PANEL (14) potassium 4.9 mmol/ L 3.5-5. 2 normal Not Available [facility] ([facility]) [address] [facility] [place], [address], 07/11/2024 07:41:03 07/11/19 25 07/11/2024 COMP. METAB OLIC PANEL (14) chloride 102 mmol/ L 96-106 normal Not Available [facility] ([facility]) [address] [facility] [place], [address], 07/11/2024 07:41:03 07/11/19 25 07/11/2024 COMP. METAB OLIC PANEL (14) carbon dioxide, total 25 mmol/ L 20-29 normal Not Available [facility] ([facility]) [address] [facility] [place], [address], 07/11/2024 07:41:03 07/11/19 25 07/11/2024 COMP. METAB OLIC PANEL (14) calcium 9.2 mg/dL 8.7-10 .3 normal Not Available [facility] ([facility]) [address] [facility] [place], [address], 07/11/2024 07:41:03 07/11/19 25 07/11/2024 COMP. METAB OLIC PANEL (14) protein, total 6.2 g/dL 6.0-8. 5 normal Not Available [facility] ([facility]) [address] [place], [address], 07/11/2024 07:41:03 07/11/19 25 07/11/2024 COMP. METAB OLIC PANEL (14) albumin 4.0 g/dL 3.9-4. 9 normal Not Available [facility] ([facility]) [address] [facility] [place], [address], 07/11/2024 07:41:03 07/11/19 25 07/11/2024 COMP. METAB OLIC PANEL (14) globulin, total 2.2 g/dL 1.5-4. 5 Not Available [facility] ([facility]) [address] [place], [address], 07/11/2024 07:41:03 07/11/19 25 07/11/2024 COMP. METAB OLIC PANEL (14) bilirubin, total 0.3 mg/dL 0.0-1. 2 normal Not Available [facility] ([facility]) [address] [place], [address], 07/11/2024 07:41:03 07/11/19 25 07/11/2024 COMP. METAB OLIC PANEL (14) alkaline phosphatase 86 IU/L 44-121 normal Not Available [facility] ([facility]) [address] [facility], [place], [address], 07/11/2024 07:41:03 07/11/19 25 07/11/2024 COMP. METAB OLIC PANEL (14) AST (SGOT) 14 IU/L 0-40 normal Not Available [facility] ([facility]) [address] [place], [address], 07/11/2024 07:41:03 07/11/19 25 07/11/2024 COMP. METAB OLIC PANEL (14) ALT (SGPT) 16 IU/L 0-32 normal Not Available [facility] ([facility]) [address] [place], [address], 07/11/2024 07:41:03 07/11/19 25 07/11/2024 HEMOG LOBIN A1C hemoglobin A1C 6.1 % 4.8-5. 6 above high normal Predi abete s: 5.7 - 6.4 Diabe sharif: >6.4 Glyce max contr ol for adult s with diabe sharif: <7.0 Not Available [facility] ([facility]) [address] [place], [address], 07/11/2024 07:41:04 07/11/19 25 07/11/2024 VITAM IN [...] um and D. Anthony barboza [place]: The [facility] . 2. Michael mir MF, Dottie mckenzie [place], Jayda off-F errar i ZACARIAS, et al. Evalu ation , treat ment, and preve ntion of vitam in D defic iency : an Endoc rine Socie ty clini ivon pract ice guide line. JCEM. 2010; 96(7) :1911 -30. Not Available [facility] ([facility]) [address] [place], [address], 07/11/2024 07:41:05 07/11/19 25 07/11/2024 MAGNE SIUM magnesium 2.4 mg/dL 1.6-2. 3 above high normal Not Available [facility] ([facility]) [address] [place], [address], 07/11/2024 07:41:05 09/20/19 25 09/20/2024 CBC WITH DIFFE RENTI AL/PL ATELE T WBC 7.5 x10e3 /uL 3.4-10 .8 normal Not Available [facility] ([facility]) [address] [place], [address], 09/20/2024 13:08:05 09/20/19 25 09/20/2024 CBC WITH DIFFE RENTI AL/PL ATELE T RBC 5.11 x10e6 /uL 3.77-5 .28 normal Not Available [facility] ([facility]) [address] [place], [address], 09/20/2024 13:08:05 09/20/19 25 09/20/2024 CBC WITH DIFFE RENTI AL/PL ATELE T hemoglobin 15.5 g/dL 11.1-1 5.9 normal Not Available [facility] ([facility]) [address] [place], [address], 09/20/2024 13:08:05 09/20/19 25 09/20/2024 CBC WITH DIFFE RENTI AL/PL ATELE T hematocrit 49.4 % 34.0-4 6.6 above high normal Not Available [facility] ([facility]) [address] [place], [address], 09/20/2024 13:08:05 09/20/19 25 09/20/2024 CBC WITH DIFFE RENTI AL/PL ATELE T MCV 97 fL 79-97 normal Not Available [facility] ([facility]) [address] [place], [address], 09/20/2024 13:08:05 09/20/19 25 09/20/2024 CBC WITH DIFFE RENTI AL/PL ATELE T MCH 30.3 pg 26.6-3 3.0 normal Not Available [facility] ([facility]) [address] [place], [address], 09/20/2024 13:08:05 09/20/19 25 09/20/2024 CBC WITH DIFFE RENTI AL/PL ATELE T MCHC 31.4 g/dL 31.5-3 5.7 below low normal Not Available [facility] ([facility]) [address] [place], [address], 09/20/2024 13:08:05 09/20/19 25 09/20/2024 CBC WITH DIFFE RENTI AL/PL ATELE T RDW 13.6 % 11.7-1 5.4 Not Available [facility] ([facility]) [address] [facility], [place], [address], 09/20/2024 13:08:05 09/20/19 25 09/20/2024 CBC WITH DIFFE RENTI AL/PL ATELE T platelets 242 x10e3 /uL 150-45 0 normal Not Available [facility] ([facility]) [address] [facility], [place], [address], 09/20/2024 13:08:05 09/20/19 25 09/20/2024 CBC WITH DIFFE RENTI AL/PL ATELE T neutrophils 61 % not estab. normal Not Available [facility] ([facility]) [address] [facility], [place], [address], 09/20/2024 13:08:05 09/20/19 25 09/20/2024 CBC WITH DIFFE RENTI AL/PL ATELE T lymphs 28 % not estab. normal Not Available [facility] ([facility]) [address] [facility], [place], [address], 09/20/2024 13:08:05 09/20/19 25 09/20/2024 CBC WITH DIFFE RENTI AL/PL ATELE T monocytes 6 % not estab. normal Not Available [facility] ([facility]) [address] [facility], [place], [address], 09/20/2024 13:08:05 09/20/19 25 09/20/2024 CBC WITH DIFFE RENTI AL/PL ATELE T eos 2 % not estab. normal Not Available [facility] ([facility]) [address] [facility], [place], [address], 09/20/2024 13:08:05 09/20/19 25 09/20/2024 CBC WITH DIFFE RENTI AL/PL ATELE T basos 2 % not estab. 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 0 normal Not Available [facility] ([facility]) [address] [facility], [place], [address], 09/20/2024 13:08:05 09/20/19 25 09/20/2024 CBC WITH DIFFE RENTI AL/PL ATELE T lymphs (absolute) 2.1 x10e3 /uL 0.7-3. 1 normal Not Available [facility] ([facility]) [address] [place], [address], 09/20/2024 13:08:05 09/20/19 25 09/20/2024 CBC WITH DIFFE RENTI AL/PL ATELE T monocytes(ab solute) 0.5 x10e3 /uL 0.1-0. 9 normal Not Available [facility] ([facility]) [address] [place], [address], 09/20/2024 13:08:05 09/20/19 25 09/20/2024 CBC WITH DIFFE RENTI AL/PL ATELE T eos (absolute) 0.2 x10e3 /uL 0.0-0. 4 normal Not Available [facility] ([facility]) [address] [place], [address], 09/20/2024 13:08:05 09/20/19 25 09/20/2024 CBC WITH DIFFE RENTI AL/PL ATELE T baso (absolute) 0.1 x10e3 /uL 0.0-0. 2 normal Not Available [facility] ([facility]) [address] [facility], [place], [address], 09/20/2024 13:08:05 09/20/19 25 09/20/2024 CBC WITH DIFFE RENTI AL/PL ATELE T immature granulocytes 1 % not estab. Not Available [facility] ([facility]) [address] [facility], [place], [address], 09/20/2024 13:08:05 09/20/19 25 09/20/2024 CBC WITH DIFFE RENTI AL/PL ATELE T immature grans (abs) 0.0 x10e3 /uL 0.0-0. 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 METAB OLIC PANEL (14) glucose 90 mg/dL 70-99 normal Not Available [facility] ([facility]) [address] [place], [address], 09/20/2024 13:08:06 09/20/19 25 09/20/2024 COMP. METAB OLIC PANEL (14) BUN 21 mg/dL 8-27 normal Not Available [facility] ([facility]) [address] [place], [address], 09/20/2024 13:08:06 09/20/19 25 09/20/2024 COMP. METAB OLIC PANEL (14) creatinine 0.77 mg/dL 0.57-1 .00 normal Not Available [facility] ([facility]) [address] [place], [address], 09/20/2024 13:08:06 09/20/19 25 09/20/2024 COMP. METAB OLIC PANEL (14) eGFR 86 mL/mi n/1.7 3 >59 normal Not Available [facility] ([facility]) [address] [facility] [place], [address], 09/20/2024 13:08:06 09/20/19 25 09/20/2024 COMP. METAB OLIC PANEL (14) BUN/creatini ne ratio 27 12-28 normal Not Available [facility] ([facility]) [address] [facility] [place], [address], 09/20/2024 13:08:06 09/20/19 25 09/20/2024 COMP. METAB OLIC PANEL (14) sodium 139 mmol/ L 134-14 4 normal Not Available [facility] ([facility]) [address] [facility] [place], [address], 09/20/2024 13:08:06 09/20/19 25 09/20/2024 COMP. METAB OLIC PANEL (14) potassium 5.1 mmol/ L 3.5-5. 2 normal Not Available [facility] ([facility]) [address] [facility] [place], [address], 09/20/2024 13:08:06 09/20/19 25 09/20/2024 COMP. METAB OLIC PANEL (14) chloride 99 mmol/ L 96-106 normal Not Available [facility] ([facility]) [address] [facility] [place], [address], 09/20/2024 13:08:06 09/20/19 25 09/20/2024 COMP. METAB OLIC PANEL (14) carbon dioxide, total 23 mmol/ L 20-29 normal Not Available [facility] ([facility]) [address] [facility] [place], [address], 09/20/2024 13:08:06 09/20/19 25 09/20/2024 COMP. METAB OLIC PANEL (14) calcium 9.5 mg/dL 8.7-10 .3 normal Not Available [facility] ([facility]) [address] [place], [address], 09/20/2024 13:08:06 09/20/19 25 09/20/2024 COMP. METAB OLIC PANEL (14) protein, total 6.6 g/dL 6.0-8. 5 normal Not Available [facility] ([facility]) [address] [facility] [place], [address], 09/20/2024 13:08:06 09/20/19 25 09/20/2024 COMP. METAB OLIC PANEL (14) albumin 4.4 g/dL 3.9-4. 9 normal Not Available [facility] ([facility]) [address] [facility] [place], [address], 09/20/2024 13:08:06 09/20/19 25 09/20/2024 COMP. METAB OLIC PANEL (14) globulin, total 2.2 g/dL 1.5-4. 5 Not Available [facility] ([facility]) [address] [facility] [place], [address], 09/20/2024 13:08:06 09/20/19 25 09/20/2024 COMP. METAB OLIC PANEL (14) bilirubin, total <0.2 mg/dL 0.0-1. 2 Not Available [facility] ([facility]) [address] [facility] [place], [address], 09/20/2024 13:08:06 09/20/19 25 09/20/2024 COMP. METAB OLIC PANEL (14) alkaline phosphatase 91 IU/L 44-121 normal Not Available [facility] ([facility]) [address] [place], [address], 09/20/2024 13:08:06 09/20/19 25 09/20/2024 COMP. METAB OLIC PANEL (14) AST (SGOT) 16 IU/L 0-40 normal Not Available [facility] ([facility]) [address] [place], [address], 09/20/2024 13:08:06 09/20/19 25 09/20/2024 COMP. METAB OLIC PANEL (14) ALT (SGPT) 17 IU/L 0-32 normal Not Available [facility] ([facility]) [address] [place], [address], 09/20/2024 13:08:06 09/20/19 25 09/20/2024 IRON AND TIBC iron bind.cap.(TI BC) 365 ug/dL 250-45 0 normal Not Available [facility] ([facility]) [address] [place], [address], 09/20/2024 13:08:07 09/20/19 25 09/20/2024 IRON AND TIBC UIBC 306 ug/dL 118-36 9 normal Not Available [facility] ([facility]) [address] [place], [address], 09/20/2024 13:08:07 09/20/19 25 09/20/2024 IRON AND TIBC iron 59 ug/dL 27-139 normal Not Available [facility] ([facility]) [address] [place], [address], 09/20/2024 13:08:07 09/20/19 25 09/20/2024 IRON AND TIBC iron saturation 16 % 15-55 normal Not Available [facility] ([facility]) [address] [facility], [place], [address], 09/20/2024 13:08:07 09/20/19 25 09/20/2024 VITAM IN B12 AND FOLAT E vitamin B12 427 pg/mL 232-12 45 normal Not Available [facility] ([facility]) [address] [facility], [place], [address], 09/20/2024 13:08:08 09/20/19 25 09/20/2024 VITAM IN B12 AND FOLAT E folate (folic acid), serum 9.7 NG/mL >3.0 normal A serum folat e armida ntrat ion of less than 3.1 ng/mL is consi dered to repre sent clini ivon defic iency . Not Available [facility] ([facility]) [address] [facility], [place], [address], 09/20/2024 13:08:08 09/20/19 25 09/20/2024 CREAT INE KINAS E,TOT AL creatine kinase,total 224 U/L 32-182 above high normal Not Available [facility] ([facility]) [address] [facility], [place], [address], 09/20/2024 13:08:08 09/20/19 25 09/20/2024 MAGNE SIUM magnesium 2.2 mg/dL 1.6-2. 3 normal Not Available [facility] ([facility]) [address] [facility], [place], [address], 09/20/2024 13:08:09 07/11/19 25 07/05/2024 , echo ardio gram No observ ation record ed. [address], [place], [address], 07/10/2024 15:10:41 09/27/19 25 LDCT, chest , for lung cance r scree brian No observ ation record ed. [email or web address] [place] [address], [address], 09/27/2024 15:05:49 Result Notes None recorded. Problems Name Problem SNOMED Code Status Onset Date Resolution Date Notes Provider Name and Address Organization Details Recorded Time Suspecte d COVID-19 762335610 Completed 05/19/2020 Removal Reason: Problem added by user [email or web address] from the COVID-19 watch flag Nilda Salazar null[place] - [facility] 1 12:16:23 Asthma 570907475 Completed 201503/11/2019 Serene Rodriguez [place] [facility] 9 12:05:51 Chronic obstruct lisset pulmonar y disease 94958180 Active 2015 Crystal Marie [place] [facility] 0 14:16:06 History of depressi on 103500798 Completed 201508/03/2017 Serene [place] [facility] 8 13:45:42 Low back pain 165197138 Completed 201508/18/2020 Serene [place] [facility] 1 12:12:43 Tobacco user 785330978 Active 2015 Nilda Salazar [place] [facility] 0 14:16:06 Stented coronary artery 136935075 Active 2016 Rafael Whatley MD [address], [place], [address] , [place] [facility] 3 12:52:47 Depressi ve disorder 87843725 Completed 201803/11/2019 Serene Rodriguez [place] [facility] 9 12:05:26 Chronic depressi on 088517442 Active 2018 Rafael Whatley MD [address], [place], [address] , [place] [facility] 3 12:52:36 Otitis media 97802994 Completed 201906/25/2019 Serene Rodriguez [place] [facility] 0 14:28:46 Benign hyperten mey 50706075 Active 2020 Rafael Whatley MD [address], [place], [address] , [place] [facility] 3 12:52:30 Chronic back pain 872314747 Active 2020 Rafael Whatley MD [address], [place], [address] , [place] [facility] 3 12:52:33 COVID-19 283665531 Completed 202106/29/2021 Nilda Meneess RN [address], [place], [address] , [place] [facility] 2 11:53:20 Mixed hyperlip idemia 029960357 Active 2021 Rafael Whatley MD [address], [place], [address] , [place] [facility] 3 12:52:41 Arthriti s of right knee joint 13995677700 32964 Active 2021 Rafael Whatley MD [address], [place], [address] , [place] [facility] 3 12:52:27 Pain in right foot 70955618953 9107 Active 2021 Alyssa Olson, CODING DIRECTOR [address], [place], [address] , [place] [facility] 2 15:53:47 Pain of right knee joint 72696701434 4100 Active 2021 Alyssa Olson, CODING DIRECTOR [address], [place], [address] , [place] [facility] 2 15:53:59 Prediabe sharif 986557794 Active 2024 Juwan Gomes PA-C [address], [place], [address] , [place] [facility] 5 14:15:53 Insomnia 344139873 Active 2024 Juwan Gomes PA-C [address], [place], [address] , [place] [facility] 5 14:15:59 Spasm 42648035 Active 2024 Juwan Gomes PA-C [address], [place], [address] , [place] [facility] 5 14:16:03 Tobacco dependen ce caused by cigarett es 66122054567 044369 Active 2024 Juwan Gomes PA-C [address], [place], [address] , [place] [facility] 5 10:14:09 Cramp in lower limb 617344814 Active 2024 Juwan Gomes PA-C [address], [place], [address] , [place] [facility] 5 10:36:33 Body mass index 30+ - obesity 834347616 Active 2024 Juwan Gomes PA-C [address], [place], [address] , [place] [facility] 5 10:38:18 Acute exacerba tion of chronic obstruct lisset pulmonar y disease 559765122 Active 2024 Juwan Gomes PA-C [address], [place], [address] , [place] [facility] 5 10:41:45 Nodule of lung 774726980 Active 2024 Juwan Gomes PA-C [address], [place], [address] , [place] - [facility] 5 16:06:52 Problem Notes None recorded. Procedures Surgical History Date Name Laterality Status Provider Name and Address Organization Details Recorded Time 12/25/19 24 total knee replacement completed Crystal Marie [place] - [facility] 01/03/2024 08:41:46 09/08/19 24 Joint Injection completed Rafael Whatley MD [address], [place], [address], [place] [facility] 09/08/2023 12:04:18 07/18/19 24 Advance Care Planning completed Cristian Alvarez [place] [facility] 07/17/2023 14:45:59 07/18/19 24 Functional Status Assessed completed Cristian Alvarez [place] [facility] 07/17/2023 14:45:59 04/28/19 24 Knee Surgery completed Kayla Hui [place] [facility] 07/21/2023 13:28:09 11/08/19 23 Joint Injection completed Rafael Whatley MD [address], [place], [address], [place] [facility] 11/07/2022 17:55:58 08/20/19 23 Joint Injection completed Rafael Whatley MD [address], [place], [address], [place] [facility] 08/19/2022 11:03:03 05/02/19 23 Joint Injection completed Rafael Whatley MD [address], [place], [address], [place] [facility] 05/02/2022 11:28:15 03/11/20 22 Joint Injection completed Rafael Whatley MD [address], [place], [address], [place] [facility] 03/16/2022 14:13:57 12/16/19 22 [...] completed Nilda Meneses RN [address], [place], [address], [place] [facility] 09/07/2018 16:44:54 08/23/19 17 Cataract Surgery completed Kayla Staples [place] [facility] 08/03/2017 13:22:15 03/14/19 84 cholecystectomy completed Serene Rodriguez [place] - [facility] 08/18/2020 12:06:10 Stress test completed Kaylayaneth Hui [place] [facility] 07/21/2023 13:28:09 Cardiac Cath completed Kayla Hui [place] [facility] 07/21/2023 13:28:09 Imaging Results None recorded. Procedure Notes None recorded. Medical Equipment None Reported. Allergies Allergen ID Allergen Name Allergen Category Reaction Reaction Severity Criticality Documentation Date Start Date Code Code System Note Provider Name and Address Organization Details Recorded Time 331913 meclizine medicatio n hives Not available Not available 03/04/20252008 6676 RxNorm Not Available sharon - External Data Service - prod 5 12:08:12 56945 Antivert medicatio n hives Not available Not available 01/15/20162008 46372 RxNorm Not Available [facility] 6 09:55:50 Medications Name Sig Start Date [...] EVERY DAY BY ORAL ROUTE DIRECTED . 2024 active Not Available Not Available Not Avai lable atorvasta tin 40 mg tablet 10/31 completed [...] (2.5 mg base)/3 mL nebulizat ion soln USE ONE (1) VIAL IN NEBULIZE R FOUR (4) TIMES DAILY NEEDED 2024 active Not Available Not Available Not [...] ONE (1) TABLET DAILY FOR 4 DAYS 03/14 completed Not Available Not Available Not Available ibuprofen 800 mg tablet TAKE ONE [...] 09/07/19 10;Indic ation: Pharyngi tis - (4620 );Prin deangelo: 08/28/19 10 Not Available Not Available [...] ser: [email or web address] ;Indicat ion: Depressi on - (0 00);Prin deangelo: 05/09/19 09 Not Available Not [...] Updated DateTime 5 160.02 cm 37.7 kg/m2 84698.1 7 g 97.3 [degF] 96 % 79 /min 18 /min 118/70 mm[Hg] Katya Daigle [place] - [facility] 5 13:10:09 Date Recorded Body height Body mass index (BMI) Body weight Heart rate Oxygen saturation Systolic And Diastolic Provider Name and Address Organization Details Last Updated DateTime 5 160.02 cm 39 kg/m2 02149.0 2 g 84 /min 96 % 116/74 mm[Hg] Saima Castillo [facility] 5 10:58:25 Date Recorded Body height Body mass index (BMI) Body weight Heart rate Oxygen saturation Systolic And Diastolic Provider Name and Address Organization Details Last Updated DateTime 5 160.02 cm 38.6 kg/m2 83769.1 4 g 83 /min 96 % 120/78 mm[Hg] Saima Castillo [facility] 5 13:14:25 Date Recorded Body height Body mass index (BMI) Body weight Heart rate Oxygen saturation Systolic And Diastolic Provider Name and Address Organization Details Last Updated DateTime 5 160.02 cm 39.3 kg/m2 189201. 51 g 86 /min 96 % 122/80 mm[Hg] Saima Castillo [facility] 5 09:53:07 Social History Question Answer Notes LastModified by CourseAdvisorat ion Details LastModified Time Tobacco Smoking Status Current Every Day Smoker Nilda dominguez [facility]UD[facility] 03/11/2019 11:49:26 Able To Swim? Yes [email or web address] Informati on not available 10/31/2016 Do You Have An Advance Directive? No [email or web address] Information not available 10/31/2016 Do You Wear A Helmet When Biking? Yes [email or web address] Information not available 10/31/2016 Are You Blind Or Do You Have Difficulty Seeing? No [email or web address] Information not available 10/31/2016 Is Blood Transfusion Acceptable In An Emergency? No Information not available 07/21/2023 What Is Your Level Of Caffeine Consumption? Moderate [email or web address] Information not available 10/31/2016 How Much Tobacco Do You Chew? None Information not available 07/21/2023 Are You Deaf Or Do You Have Serious Difficulty Hearing? No [email or web address] Information not available 10/31/2016 What Type Of Diet Are You Following? REGULAR [email or web address] Information not available 10/31/2016 Which Illicit Or Recreational Drugs Have You Used? Denies [email or web address] Information not available 10/31/2016 What Is The Highest Grade Or Level Of School You Have Completed Or The Highest Degree You Have Received? GA55300-6 Information not available 07/21/2023 Swimming/diving Yes Informa tion not available 10/31/2016 Have There Been Any Changes To Your Family Or Social Situation? No Information no t available 11/07/2022 What Is The Fluoride Status Of Your Home? Unknown Information not available 11/07/2022 Hard Of Hearing Or Deaf In One Or Both Ears? No [email or web address] Information not available 10/31/2016 Single Or Multi-level Home/work? Single Level Home [email or web address] Information not available 10/31/2016 Legally Blind In One Or Both Eyes? No [email or web address] Information no t available 10/31/2016 Live Alone Or With Others? 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 No Information not available 11/07/2022 What Was The Date Of Your Most Recent Tobacco Screening? 09/19/2024 [email or web address] Information not available 09/19/2024 How Many Children Do You Have? 2 [email or web address] Information not available 10/31/2016 What Is Your Current Pack Years? [email or web address] Information not available 03/11/2022 What Is Your Relationship Status? Information not available 07/21/2023 Do You Use Your Seat Belt Or Car Seat Routinely? Yes Information not available 07/21/2023 Seat Belts Used Routinely Yes Information not available 10/31/2016 Are You Sexually Active? No Information not available 11/07/2022 Smoke Alarm In Home Yes [email or web address] Information not available 10/31/2016 Do You Have Smoke And Carbon Monoxide Detectors In Your Home? No Information not available 11/07/2022 At What Age Did You Start Smoking Tobacco? 15 Information not available 03/11/2022 Are You Passively Exposed To Smoke? No Information no t available 11/07/2022 How Much Tobacco Do You Smoke? 1 PPD Information not available 03/11/2022 Do You Use Sunscreen Routinely? Yes [email or web address] Information not available 10/31/2016 Has Tobacco Cessation Counseling Been Provided? Yes [email or web address] Information not available 10/31/2016 On What Date Was Tobacco Cessation Counseling Provided? 09/19/2024 [email or web address] Information not available 09/19/2024 How Many Years Have You Smoked Tobacco? 47 Information not available 06/13/2023 Do You Have Difficulty Walking Or Climbing Stairs? No [email or web address] Information not available 10/31/2016 Sex: Female Functional Status Question Answer Note LastModified by Organizat ion Details LastModified Time Do you or have you ever used smokeless tobacco? Never used smokeless tobacco Information not available 07/21/2023 Are you currently employed? No disabled Information not available 11/07/2022 Do you have transportation difficulties? No Information not available 11/07/2022 Urinary incontinence assessment performed? Yes [email or web address] Information not available 10/31/2016 Are you able to care for yourself independently? Yes [email or web address] Information not available 10/31/2016 Do you have difficulty dressing, bathing, grooming, or toileting? No [email or web address] Information not available 10/31/2016 Do you or have you ever used e-cigarettes or vape? Never used electronic cigarettes Information not available 07/21/2023 What is your exercise level? None [email or web address] Information not available 10/31/2016 Do you use any illicit or recreational drugs? No Information not available 11/07/2022 Do you or have you ever used any other forms of tobacco or nicotine? No Information not available 11/07/2022 What is your level of alcohol consumption? None [email or web address] Information not available 10/31/2016 Are you able to walk independently without assistance or assistive devices? YESWOREST [email or web address] Information not available 10/31/2016 Do you have difficulty doing errands alone? No [email or web address] Information not available 10/31/2016 Mental Status Question Answer Note LastModified by Organizat ion Details LastModified Time Do you feel stressed (tense, restless, nervous, or anxious, or unable to sleep at night)? [id number] Information not available 11/07/2022 Do you have difficulty concentrating, remembering or making decisions? No [email or web address] Information no t available 10/31/2016 Family History [...] 2023 13:28:07 Brother Chronic obstructive pulmonary disease [email or web address] Not available 2017 13:23:35 Paternal Uncle Malignant neoplasm of colon Not available 2023 13:28:07 Medical History Condition Response Arthritis Y Heart Disease Y Hypertension Y Depression Y COPD Y Asthma Y Gynecological History Statement/Question Response If Post [...] 03/11/20 19 cancelled patient objection Not Available [facility] 04/27/2019 03:56:16 Past Encounters Encounter ID Performer Location Encounter Start Date Encounter Closed Date Diagnosis/Indication Diagnosis SNOMED-CT Code Diagnosis ICD10 Code Diagnosis IMO Codes Diagnosis Note [id number] Irineo Burrows MD [facility] [address] [place], [place] [address] [place] [place] [address] 01/21/2016 08:17:30 01/22/2016 09:01:18 Low back pain 776982581 M54.5 Acute urin ina tract infection 331649754 N39.0 Acute low back pain 2788 14082 M54.5 [id number] Irineo Burrows MD [address] [place] [address] 02/09/2016 11:13:16 02/09/2016 12:48:32 Low back pain 043794031 M54.5 Chronic ob structive pulmonary disease 03123279 J44.9 History of depression 16 4552669 Z86.59 Asthma 207323636 J45.90 9 Tobacco user 082862970 Z 72.0 [id number] Kristin Alvares [address] [place] [address] 05/16/2016 11:07:49 05/16/2016 12:02:44 Cigarette smoker 81641002 F17.210 pt to start after illness Body mass index 30+ - obesity 317080359 Z68.39 Viral gastroenteritis 11 8841224 A08.4 Asthma 706973178 J45.90 9 Chronic ob structive pulmonary disease 40120841 J44.9 Candidiasis of skin 4988 3006 B37.2 Upper resp iratory infection 14796277 J06.9 [id number] Kristin Alvares [address] [place] [address] 07/06/2016 15:12:40 07/07/2016 07:27:54 Renewal of prescription 065100718 Z76.0 Moderate c hronic obstructive pulmonary disease 911523270 J44.9 Cough 15498777 R05 [id number] Kristinfaye Alvares [address] [place] [address] 07/11/2016 13:29:32 07/11/2016 14:54:32 Chronic obstructive pulmonary disease 87018603 J44.9 Upper resp iratory infection 81866833 J06.9 Conjunctivitis 2712889 H 10.9 [id number] Serene Rodriguez [address] [place] [address] 07/18/2016 12:23:00 07/18/2016 13:34:32 Renewal of prescription 781304411 Z76.0 Pruritic rash 86940764 L 28.2 [id number] Serene Rodriguez [address] [place] [address] 10/31/2016 09:52:37 10/31/2016 11:46:41 General examination of patient 856524938 Z00.00 Viral screening 55287005 4 Z11.59 Vaccination required 170 615501 Z28.3 Screening for malignant neoplasm of colon 491305224 Z12.11 Body mass index 30+ - obesity 483809795 Z68.36 Fibrocysti c disease of breast 30816945 N60.19 Chronic ob structive pulmonary disease 70296013 J44.9 Screening for cardiovascular system disease 752842857 Z13.6 Endocrine/ metabolic screening 288621012 Z13.228 Renewal of prescription 332293833 Z76.0 [id number] Serene Rodriguez [address] [place] [address] 12/05/2016 13:49:32 12/05/2016 14:52:22 Body mass index 30+ - obesity 001465449 Z68.36 Contact dermatitis 30240 004 L25.9 Renewal of prescription 998855555 Z76.0 [id number] Kristin Alvares [address] [place] [address] 12/14/2016 09:20:50 12/14/2016 15:01:40 Pain of elbow region 24496513 M25.738 [id number] Serene Rodriguez [address] [place] [address] 03/13/2017 08:33:21 03/13/2017 09:37:50 Dyspnea 836025435 R06.00 [id number] Serene Rodriguez [address] [place] [address] 08/03/2017 12:49:35 08/03/2017 16:39:02 Stented coronary artery 882246974 Z95.5 Chronic ob structive pulmonary disease 67462232 J44.9 Asthma 741222131 J45.90 9 Low back pain 178253035 M54.5 Body mass index 30+ - obesity 444347852 Z68.36 Obesity 130491093 E66.9 Contact dermatitis 81359 004 L25.9 Insomnia 462470177 G47.0 0 Renewal of prescription 647178326 Z76.0 Moderate c hronic obstructive pulmonary disease 785347596 J44.9 Gastroesop hageal reflux disease 691374967 K21.9 [id number] Serene Rodriguez [address] [place] [address] 08/24/2017 13:30:56 08/24/2017 15:22:15 Knee pain 57799022 M25.561 Swelling o f knee joint 052799698 M25.469 Edema of l ower extremity 916568900 R60.0 Abdominal pain 97234126 R10.9 Pain provo ked by walking 124249286 R52 Smoker 76694773 F17.763 [id number] Serene Rodriguez [address] [place] [address] 11/02/2017 13:28:10 11/02/2017 14:55:23 Anxiety 83584337 F41.9 Depressive disorder 3548 9007 F32.9 Abnormal g rief reaction 749332901 F43.20 [id number] Serene Jennifer [address] [place] [address] 01/08/2018 10:39:32 01/08/2018 11:27:49 Depressive disorder 10750323 F32.9 Anxiety 46255453 F41.9 Vertigo 091981749 R42 Upper resp iratory infection 88178087 J06.9 [id number] Serene Rodriguez [address] [place] [address] 05/15/2018 11:17:50 05/15/2018 12:28:29 Sudden visual loss 05045346 H53.131 Headache 94792483 R51 Dizziness 528843076 R42 [id number] Serene Rodriguez [address] [place] [address] 06/07/2018 15:41:29 06/12/2018 12:06:37 Fever 567632809 R50.9 Chronic ob structive pulmonary disease 40790456 J44.9 Acute exac erbation of chronic obstructive pulmonary disease 323970333 J44.1 [id number] Serene Rodriguez [address] [place] [address] 03/11/2019 11:24:54 03/11/2019 12:15:43 Administration of influenza vaccine 21547756 Z23 Acute exac erbation of chronic obstructive pulmonary disease 956299599 J44.1 Chronic ob structive pulmonary disease 35823068 J44.9 Fever 344237292 R50.9 Smoker 54501526 F17.200 Recent weight loss 03490 7000 R63.4 Influenza 0552903 J11.1 [id number] Irineo Burrows MD [address] [place] [address] 05/17/2019 13:39:14 05/17/2019 14:20:42 Cough 43475502 R05 Otitis media 02701962 H6 6.91 Chronic ob structive pulmonary disease 85537293 J44.9 [id number] Serene Rodriguez [address] [place] [address] 06/25/2019 13:52:15 06/25/2019 15:00:39 Chronic obstructive pulmonary disease 63544931 J44.9 Chronic depression 13384 0009 F34.1 Pruritic rash 29331065 L 28.2 Insomnia 232263137 G47.0 0 [id number] Serene Rodriguez [address] [place] [address] 09/27/2019 15:44:21 09/27/2019 16:43:38 Body mass index 25-29 - overweight 373497136 Z68.27 Ankle pain 607849117 M25 .572 Eruption 275273485 R21 Vitamin D deficiency 347 21977 E55.9 [id number] Serene Rodriguez [address] [place] [address] 04/17/2020 14:25:04 04/17/2020 15:14:50 Viral screening 940216055 Z11.59 Hypokalemia 31188504 E87 .6 Anxiety 69640002 F41.9 [id number] Serene Rodriguez[address]. [place] [address] 08/18/2020 11:28:53 08/18/2020 12:22:27 Abdominal pain 25410873 R10.9 Benign hypertension 1072 5009 I10 stable Chronic ob structive pulmonary disease 99748718 J44.9 stable Chronic depression 38675 0009 F34.1 stable Smoker 19011420 F17.200 pt does not wish to quit at this time Chronic back pain 338484 002 G89.29 [id number] Serene Rodriguez[address] [place] [address] 09/03/2020 15:58:48 09/03/2020 16:32:49 Chronic back pain 984949251 G89.29 Benign hypertension 1072 5009 I10 stable Chronic depression 92655 0009 F34.1 stable Chronic ob structive pulmonary disease 40789284 J44.9 stable Abdominal pain 10015572 R10.9 Gastroesop hageal reflux disease 014328989 K21.9 [id number] Kristin Whitt[address]re[address] [place] [address] 03/03/2021 08:38:33 03/03/2021 09:22:57 Spasm of back muscles 448509443 M62.834 [id number] Herrera Barrera DO [address] [place] [address] 04/19/2021 15:34:19 04/19/2021 16:18:50 Cough 93602553 R05.9 COVID-19 259926313 U07.1 [id number] Alyssa Olson [address] [place] [address] 12/15/2021 10:17:43 12/15/2021 11:32:18 Body mass index 30+ - obesity 179826737 Z68.35 Obesity 767266525 E66.3 Screening for malignant neoplasm of colon 024746679 Z12.11 Arthritis of right knee joint 4440940731 418410 M13.106 [id number] Alyssa Olson [address] clarice Bland [place] [address] 4 12/30/2021 14:23:59 12/30/2021 15:18:13 Viral screening 872232886 Z11.52 Positive for COVID, Negative for Flu A&B per rapid testing [id number] Alyssa Olson [address] [place] [address] 4 01/21/2022 15:36:50 01/21/2022 16:10:45 Pain of right knee joint 6614013857 88222 M25.157 [id number] Rafael Whatley MD [address] [place] [address] 4 03/11/2022 12:31:18 03/11/2022 13:54:21 Body mass index 30+ - obesity 453465965 Z68.36 Pain of ri ght knee joint 3834832513 61953 M25.412 [id number] Rafael Whatley MD [address] [place] [address] 04/18/2022 15:16:44 04/18/2022 17:00:37 Spasm 76846939 R25.2 Pt will use OTC Mg supplement s, as well [id number] Rafael Whatley MD [address] [place] [address] 05/02/2022 10:42:54 05/02/2022 11:30:27 Arthritis of right knee joint 8887496880 979009 M13.861 Body mass index 30+ - obesity 274577400 Z68.36 Obesity 921094815 E66.9 Spasm of back muscles 20 1869078 M62.830 resolved, check K+ and Mg2+ at next appt [id number] Rafael Whatley MD [address] [place] [address] 4 05/30/2022 10:46:54 05/30/2022 12:56:36 Arthritis of right knee joint 5115888620 698437 M13.861 very good resolution with injection and weight loss Body mass index 30+ - obesity 882193307 Z68.36 Pt actively working on weight loss, [facility] [id number] Rafael Whatley MD [address] [place] [address] 4 08/19/2022 08:06:44 08/19/2022 08:50:10 Arthritis of right knee joint 1306840295 058444 M13.861 very good resolution with injection and weight loss [id number] Rafael Whatley MD [address] [place] [address] 4 11/07/2022 15:29:14 11/07/2022 16:50:47 Arthritis of right knee joint 8636553772 485692 M13.861 Pt tolerated injection well Bilateral plantar fasciitis 6618940544 5379058 M72.2 Pt trying cold rolls for now [id number] Rafael Whatley MD [address] [place] [address] 01/06/2023 14:11:43 01/06/2023 15:04:28 Pain of right knee joint 6946177642 36271 M25.344 [id number] Rafael Whatley MD [address] [place] [address] 4 02/03/2023 10:49:24 02/03/2023 12:46:21 Screening for malignant neoplasm of colon 146672263 Z12.11 pt has cologuard box encouraged to use Screening for malignant neoplasm of respiratory tract 456361729 Z12.2 pt declines Nicotine d ependence with current use 838366237 F17.210 Current tobacco user Former hea vy tobacco smoker 5281665667 46110 Z87.891 Former tobacco user Body mass index 30+ - obesity 971381373 Z68.36 Pt actively working on weight loss, encouragem ent provided Obesity 403795495 E66.9 Pain of ri ght knee joint 3148607702 72879 M25.450 [id number] Rafael Whatley MD [address] [place] [address] 4 02/27/2023 15:31:55 02/27/2023 16:10:29 Dysfunction of bilateral eustachian tubes 8972596615 642401 H69.93 Arthritis of right knee joint 1274055600 099193 M13.216 [id number] Rafael Whatley MD [address] [place] [address] 4 04/11/2023 10:34:07 04/11/2023 11:39:51 Arthritis of right knee joint 6254603677 820426 M13.861 Cellulitis of breast 758 53979 N61.0 [id number] Rafael Whatley MD [address] [place] [address] 06/13/2023 09:10:57 06/13/2023 09:29:16 Arthritis of right knee joint 3322253581 510340 M13.861 Body mass index 30+ - obesity 823018706 Z68.38 Pt actively working on weight loss, encouragem ent provided Obesity 094354838 E66.9 Tobacco user 267012417 Z 72.0 [id number] Rafael Whatley MD [address] [place] [address] 07/18/2023 09:32:37 07/18/2023 10:23:27 Adult health examination 934290615 Z00.00 Depression screening 171 390962 Z13.31 A depression screening was completed via a standardiz ed screening tool. 5 minutes were spent discussing depression screening results and risk factors. Examinatio n of blood pressure 422676456 Z01.30 Diet education 49633834 Z71.3 Counseling 379504426 Z71 .82 Exercise counseling . Patient encouraged to exercise 30 minutes 5 days a week. At [facility] ed risk for falls 899867996 Z91.81 STEADI FAST screening score of _5____. Advance care planning 71 4017208 Z71.89 Body mass index 30+ - obesity 772510088 Z68.39 Pt actively working on weight loss, encouragem ent provided Obesity 831134303 E66.9 Screening mammography 24 573199 Z12.31 Hyperlipid emia screening 983092816 Z13.220 Endocrine/ metabolic screening 433132895 Z13.228 HIV screening 039096585 Z11.4 Screening for malignant neoplasm of colon 007202865 Z12.11 Pain of ri ght knee joint 5264660661 10451 M25.561 Arthritis of right knee joint 4583971392 676926 M13.449 [id number] Rafael Whatley MD [address] [place] [address] 07/21/2023 13:25:33 07/21/2023 14:20:12 Vitamin D deficiency 33804168 E55.9 Hyperlipidemia 71960347 E78.5 continue current management [id number] Rafael Whatley MD [address] [place] [address] 09/08/2023 09:04:45 09/08/2023 10:25:55 Arthritis of right knee joint 3488943225 921370 M13.861 responded well to injection [id number] Rafael Whatley MD [address] [place] [address] 10/19/2023 10:32:23 10/19/2023 11:37:18 Arthritis of right knee joint 8291317398 200082 M13.861 responded well to injection Vitamin D deficiency 347 62182 E55.9 refill requested [id number] Rafael Whatley MD [address] [place] [address] 4 12/01/2023 12:59:50 12/01/2023 14:43:44 Arthritis of right knee joint 2122902379 755023 M13.861 following with Ortho, procedure planned in 3 weeks Chronic ob structive pulmonary disease 87984680 J44.9 refill requested Body mass index 30+ - obesity 778059859 Z68.37 Pt actively working on weight loss, encouragem ent provided Obesity 423308207 E66.9 [id number] Rafael Whatley MD [address] [place] [address] 4 12/18/2023 13:37:27 12/18/2023 15:29:35 Body mass index 30+ - obesity 112249863 Z68.37 Pt actively working on weight loss, encouragem ent provided Obesity 065102338 E66.9 Pain of ri ght knee joint 8839389259 29551 M25.524 [id number] Rafael Whatley MD [address] [place] [address] 01/11/2024 11:35:33 01/11/2024 12:08:24 Pain of right knee joint 8363853177 86976 M25.187 [id number] Rafael Whatley MD [address] [place] [address] 4 01/25/2024 08:36:59 01/25/2024 10:03:25 Pain of right knee joint 6168428893 46019 M25.213 [id number] Rafael Whatley MD [address] [place] [address] 4 03/05/2024 10:16:43 03/05/2024 10:47:15 Pain of right knee joint 1293041671 32084 M25.657 [id number] Rafael Whatley MD [address] [place] [address] 4 04/09/2024 11:21:19 04/09/2024 12:51:37 Pain of right knee joint 1151854836 49764 M25.140 [id number] Rafael Whatley MD [address] [place] [address] 4 05/24/2024 11:33:33 05/24/2024 12:59:54 Pain of right knee joint 6248621203 30661 M25.561 Arthritis of right knee joint 1429458813 812761 M13.861 following with Ortho, [id number] Rafael Whatley MD [address] [place] [address] 4 06/17/2024 13:05:40 06/17/2024 14:52:35 Upper respiratory infection 34048825 J06.9 [id number] Juwan Gomes PA-C [address] [place] [address] 4 07/10/2024 10:27:06 07/10/2024 11:27:34 Chronic obstructive pulmonary disease 78184068 J44.9 Essential hypertension 83617716 I10 Hyperlipidemia 56413122 E78.5 Chronic depression 08210 0009 F32.A Peripheral edema 9271995 00 R60.9 Endocrine/ metabolic screening 230749734 Z13.228 Pain of ri ght knee joint 3398873642 62408 M25.561 Stented co ronary artery 308874915 Z95.5 [id number] Juwan Gomes PA-C [address] [address] 07/25/2024 12:45:39 07/25/2024 15:10:04 Prediabetes 102512695 R73.03 066115 Making dietary changes but also preferring to use medication . Insomnia 519680274 G47.0 9 28511 Cautioned risk of increased SI with antidepres pramod medication . Spasm 38156038 R25.2 45665 Cautioned side effect of sedation; do not take with other sedatives. Do not drink alcohol with medication . Do not operate machinery or drive after taking medication . [id number] Juwan Gomes PA-C [place] [address] [address] 09/19/2024 09:34:20 09/19/2024 10:46:56 Benign hypertension 20254320 I10 Check BP at home. Try to [...] present. Tobacco de pendence caused by cigarettes 7640892912 1625399 F17.876 3666677 Cramp in lower limb 4499 74955 R25.2 626599 Cautioned side effect of sedation; do not take with other sedatives. Do not drink alcohol with medication . Do not operate machinery or drive after taking medication . Body mass index 30+ - obesity 320873785 E66.9 5328442 Encouraged healthy diet and food journaling , open to [employer]. encouraged use of apps such as:My [employer] Diet CoachLose It!In addition to paper and pen food journal. Calorie deficit necessary for weight loss. Pay attention to food labels, keep track of calorie intake. Attempt to increase exercise. Acute exac erbation of chronic obstructive pulmonary disease 708765113 J44.1 425907 Discussed supportive care with patient. Advised to [...] signs and sxs to seek further treatment. [id number] REGINE Torres [address] [address] 10/21/2024 14:30:48 10/21/2024 16:07:12 Acute exacerbation of chronic obstructive pulmonary disease 730187620 J44.1 414868 Discussed supportive care with patient. Advised to [...] Name 02/03/2023 1 PASSPORT HEALTH PLAN BY [employer] (MEDICARE REPLACEMENT/ ADVANTAGE - HMO) Anette Ng [id number] Anette Gomes 04/11/2023 1 PASSPORT HEALTH PLAN BY [employer] (MEDICARE REPLACEMENT/ ADVANTAGE - HMO) Anette Gomes [id number] Anette Gomes 02/03/2023 NGS NATIONAL - MEDICARE [place] - [facility] (MEDICARE) Anette Gomes [id number] Anette Gomes 09/17/2022 1 PASSPORT BY [employer] - DUAL ELIGIBLE (MEDICARE REPLACEMENT/ ADVANTAGE - HMO) Anette Ng [id number] Anette Gomes 11/07/2022 2 PASSPORT BY [employer] - DUAL ELIGIBLE (MEDICARE REPLACEMENT/ ADVANTAGE - HMO) Anette Gomes [id number] Anette Gomes 08/19/2022 1 PASSPORT HEALTH PLAN BY [employer] (MEDICARE REPLACEMENT/ ADVANTAGE - HMO) Anette Ng [id number] Anette Gomes 08/19/2022 2 PASSPORT HEALTH PLAN BY [employer] (MEDICARE REPLACEMENT/ ADVANTAGE - HMO) Anette Ng [id number] Anette Gomes 08/19/2022 2 PASSPORT BY [employer] - DUAL ELIGIBLE (MEDICARE REPLACEMENT/ ADVANTAGE - HMO) Anette Ng [id number] Anette Gomes 08/19/2022 1 PASSPORT BY [employer] ([facility]) Anette Ng [id number] Anette Gomes 04/19/2021 [place] [facility] [place] [id number] Anette Ng [id number] Anette Gomes 06/24/2021 N[facility] [place] [facility] [place] Anette Ng [id number] Anette Gomes 06/24/2021 2 [place] Anette Ng [id number] Anette Stringer Gomes 08/19/2022 1 [place]MED[place]ACEMENT HMO) [id number] Anette Ng [id number] Anette Gomes 09/17/2022 2 [place] Anette Ng [id number] Anette Gomes 08/03/2021 2 [facility] - [place] Anette Ng [id number] Anette Gomes 04/19/2021 1 [employer] [place] (MEDICA[place] H[place]) [id number] Anette Ng [id number] Anette Gomes 06/07/2018 1 *SELF PAY* Co david Stringer Gomes 04/19/2021 1 [place] Anette Ng [id number] Anette Gomes 06/06/2016 1 UNSPECIFIED REMIT PAYOR Anette Gomes 11/25/2024 1 [place] [id number] Anette Gomes [id number] Anette Gomes 08/19/2022 2 PASSPORT BY [employer] (MEDICAID REPLACEMENT - HMO) Anette Ng [id number] Anette Gomes 04/19/2021 [place] [id number] Anette Ng [id number] Anette Gomes 04/19/2021 [place] [facility] [id number] Anette Ng [id number] Anette D Gomes Notes Date Note Type Note Provider [...] contacts. Rafael Whatley MD [address], [place], [address], [place] - [facility] 06/17/2024 16:16:04 07/10/2024 text/html Patient presents to office requesting refills on Anoro inhaler. Patient has hx of COPD. Patient would also like to discuss diuretic, states lasix has caused severe muscle pain. Recent visit with Dr. Ayala, following [id number]. Has been having increased right knee pain, december had repeat knee surgery with Pal. Pt denies chest pain, SOA at rest, difficulty eating or drinking, changes in bathroom habits, syncope/presyncope, or any other concerns. Juwan Gomes PA-C [address], [place], [address], [employer] - [facility] 07/10/2024 11:26:35 07/25/2024 text/html Patient [...] pain. Recent visit with Dr. Ayala, following [id number]. Has been having increased right knee pain, december had repeat knee surgery with Pal. Pt denies chest pain, SOA at rest, difficulty eating or drinking, changes in bathroom habits, syncope/presyncope, or any other concerns. Juwan Gomes PA-C [address], [place], [address], [employer] - [facility] 07/25/2024 21:02:26 09/19/2024 text/html Patient [...] concerns. Juwan Gomes PA-C [address], [place], [address], [employer] - [facility] 09/30/2024 13:13:07 10/21/2024 text/html [id number] [...] any other concerns. Juwan Gomes PA-C [address], [place], [address], [place] [facility] 10/22/2024 09:48:16 OBGyn Episode No OBEpisode recorded.
== END 2025-03-13 23:59 | disposition home or self-care (01) ==
LOC: LAB.DROPOF 03-16 13:36
PROVIDERS: PCP Nurse Practitioner Family; Visit Provider Nurse Practitioner Family
DX: K59.09 Other constipation (principal); Z11.59 Encounter for screening for other viral diseases
CPT/HCPCS: 80053; 80061; 84443; 85025; 86803; 87340; 87389

== ENCOUNTER 2025-03-13 14:04 | Outpatient (CLI) | payer MEDICARE, SELFPAY ==
[2025-03-14 10:58] LABS: Hemoglobin A1C 5.7 % (4.0-6.0)
--- OUTSIDE RECORDS SUMMARY | 2025-03-16 14:07 | XMS_ITS | Clinical Summary ---
Author Organization [facility] Phone Care Team Providers Care Virtual Recruiter Name Role Phone Unavailable Primary Care Provider [...] this topic Medical Devices Implanted Type Area Shoe Dyer Device Identifier Shelf Expiration Date Model / Serial / Lot Kt Bone Cemnt [id number] [facility] [id number] Implanted:Qty: 1 on 04/28/2023 by Carlos Holbrook MD at [facility] Right: Knee NITO:NITO 10/10/2025 [id number] / / [id number] Procedures Procedure Name Priority Date/Time Associated Diagnosis [...] EDT Impressions 08/24/2023 8:28 AM EDT Negative (TVQ-Vjrgazsk-2) ~ RECOMMENDATION: Routine screening mammogram in 1 [...] the next mammogram, in accordance with the [employer] and the Society of Breast Imaging recommendations. Narrative 08/24/2023 8:28 AM EDT Procedure:MM MAMMO DIGITAL HORACE SCREEN BILAT ~ Reason for exam: screening, asymptomatic. Z12.31-Encounter for screening mammogram for malignant neoplasm of upoatd-YRS-30-CM ~ MM MAMMO DIGITAL HORACE SCREEN BILAT [...] for screening mammogram for malignant neoplasm of damila-JNL-18-CM ~ MM MAMMO DIGITAL HORACE SCREEN BILAT Bilateral CC and MLO view(s) were taken. There are scattered fibroglandular densities. Prior study comparison: Compared with prior studies the most recentbeing 03/17/21 No mammographic evidence of malignancy. ~ IMPRESSION: Negative (WYE-Lldjlkge-4) ~ RECOMMENDATION: Routine screening mammogram in 1 [...] the next mammogram, in accordance with the [employer] and the Society of Breast Imaging recommendations. 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 Plan / Payer (Ef fective 2015-Present) Name:Anette Gomes Relation to Subscriber:Employee Name:[employer] Date of :1966 (Home) Address: ATTN: ZAIRA Berry [address] [place] [address] Payer ID:Not on file Group ID:Not on file Type:Not on file Address: ATTN: ZAIRA [address] [address] [place] [address] ANTH MEDICARE ADVANTAGE MR * Guarantor: [employer] Account Type Relation to Patient Date of Phone Billing Address [employer] Employ[employer] 1966 ATTN: ZAIRA [address] [address] [place] [address] 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 Plan / Payer (Ef fective 2015-Present) Name:Anette Gomes Relation to Subscriber:Employee Name:[employer] Date of :1966 (Home) Address: ATTN: ZAIRA [address] [address] [place] [address] Payer ID:Not on file Group ID:Not on file Type:Not on file Address: ATTN: Z[address]IRA [place] [address] [address] [place] [address] * Guarantor: [facility]) Account Type Relation to Patient Date of Phone Billing Address Corporate Other [address] [facility] Attn: Shaneka [facility] [address] [place] [id number]
--- OUTSIDE RECORDS SUMMARY | 2025-04-07 12:38 | XMS_ITS | Clinical Summary ---
Author Organization [facility] Phone Care Team Providers Care Vp Genetic Name Role Phone Unavailable Primary Care Provider [...] this topic Medical Devices Implanted Type Area Research Engineer Marine Equipment Device Identifier Shelf Expiration Date Model / Serial / Lot Kt Bone Cemnt [id number] [facility] [id number] Implanted:Qty: 1 on 04/28/2023 by Carlos Holbrook MD at [facility] Right: Knee NITO:NITO 10/10/2025 [id number] / / [id number] Procedures Procedure Name Priority Date/Time Associated Diagnosis [...] EDT Impressions 08/24/2023 8:28 AM EDT Negative ([id number]) ~ RECOMMENDATION: Routine screening mammogram in 1 [...] the next mammogram, in accordance with the [employer] and the Society of Breast Imaging recommendations. Narrative 08/24/2023 8:28 AM EDT Procedure:MM MAMMO DIGITAL HORACE SCREEN BILAT ~ Reason for exam: screening, asymptomatic. Z12.31-Encounter for screening mammogram for malignant neoplasm of [id number]-CVW-55-CM ~ MM MAMMO DIGITAL HORACE SCREEN BILAT [...] for screening mammogram for malignant neoplasm of [id number]-BYJ-51-CM ~ MM MAMMO DIGITAL HORACE SCREEN BILAT Bilateral CC and MLO view(s) were taken. There are scattered fibroglandular densities. Prior study comparison: Compared with prior studies the most recentbeing 03/17/21 No mammographic evidence of malignancy. ~ IMPRESSION: Negative ([id number]-Tnysgldc-1) ~ RECOMMENDATION: Routine screening mammogram in 1 [...] the next mammogram, in accordance with the [employer] and the Society of Breast Imaging recommendations. 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 Plan / Payer (Ef fective 2015-) Name:Anette Gomes Relation to Subscriber:Employee Name:[employer] Date of :1966 (Home) Address: ATTN: [employer] [place] [address] [address] [place] [address] Payer ID:Not on file Group ID:Not on file Type:Not on file Address: ATTN: [employer] [address] MEDICARE ADVANTAGE MR ANTHEM MEDICARE ADVANTAGE MR * Guarantor: [employer] Account Type Relation to Patient Date of Phone Billing Address [employer] [employer] Employ[employer] 1966 ATTN: [employer] [place] [address] [address] [place] [address] 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
== END 2025-03-14 23:59 | disposition home or self-care (01) ==
LOC: LAB.DROPOF 04-07 12:36
PROVIDERS: PCP Nurse Practitioner Family; Visit Provider Nurse Practitioner Family
DX: R73.09 Other abnormal glucose (principal)
CPT/HCPCS: 83036

== ENCOUNTER 2025-03-21 10:35 | Outpatient (CLI) | payer MEDICARE, SELFPAY ==
--- NOTE | 2025-03-21 11:00 | US_ITS ---
FINAL REPORT TECHNIQUE: Ultrasound images of the abdomen were obtained. CLINICAL HISTORY: Abd pain FINDINGS: ABDOMINAL ULTRASOUND COMPLETE: The liver is fatty infiltrated. The gallbladder is surgically absent. The common duct is normal. The right kidney measures 9.9 cm in length and is normal in echogenicity without hydronephrosis. The left kidney measures 10.4 cm in length and is normal in echogenicity without hydronephrosis. The spleen is unremarkable. The pancreas is obscured by overlying bowel gas. The visualized portions of the aorta and the IVC are normal. The vena cava is unremarkable. IMPRESSION: Fatty liver. Gallbladder absent. Reviewed, Interpreted and Dictated by Da Engle MD Transcribed by Noemí Barajas Authenticated and [facility]
== END 2025-03-21 23:59 | disposition home or self-care (01) ==
LOC: RAD 10:35
PROVIDERS: PCP Nurse Practitioner Family; Visit Provider Nurse Practitioner Family
DX: K76.0 Fatty (change of) liver, not elsewhere classified (principal); R10.12 Left upper quadrant pain; Z90.49 Acquired absence of other specified parts of digestive tract
CPT/HCPCS: 76700

== ENCOUNTER 2025-03-24 11:16 | Outpatient (CLI) | payer MEDICARE, SELFPAY ==
--- NOTE | 2025-03-24 13:00 | CA_ITS ---
APPROVED REPORT EXAM: Comprehensive 2D, Doppler, and color-flow Echocardiogram Manager Strategic Marketing: Julee Rios CRT Ht: 5 ft 4 in Wt: 239lbs BSA: 2.11 BP: 169/57 mmHg Indications: Chest Pain, COPD, Shortness of Breath, CAD, Hyperlipidemia,PAD, stents, smoker 2D Dimensions LA Volume 24.90 mL LA Volume Index 11.50 mL/m2 (M/F) 16-34 EF AP4 27.90 % GL Strain -18.1 % M-Mode Dimensions RVDd 1.84 cm (0.9-2.6) LA Diam 3.23 cm (1.9-4.0) LVDd 4.45 cm (3.5-5.7) LVDs 2.87 cm (3.5-5.7) IVSd 0.89 cm (0.6-1.1) PWd 0.86 cm (0.6-1.1) EF (Teich) 65.10% FS 35.50% EDV (Teich) 90.10 mL TAPSE 2.47 (<1.7) ESV (Teich) 31.40 mL LV Diastology E Decel Time 250 (160-240 msec) E/A Ratio 0.88 MED A' 15.00 cm/s LAT A' 12.60 cm/s Aortic Valve AO Peak GR. 9.60 mmHg Mitral Valve MV A Velocity 76.0 (40-130 cm/s) E/A Ratio 0.88 Pulmonary Valve PV Peak Velocity 72.0 (50-150 cm/s) Tricuspid Valve TR P. Velocity 184.00 cm/s RAP Estimate 10.00 mmHg RVSP 23.60 mmHg Left Ventricle The left ventricle is normal size. Left ventricular systolic function is normal. The left ventricular ejection fraction is within the normal range. There is increased left ventricular wall thickness. There is normal LV segmental wall motion. The left ventricular diastolic function is normal. LVEF is 60% Right Ventricle The right ventricle is normal size. The right ventricular systolic function is normal. Atria The left atrium size is normal. The right atrium size is normal. There is no color Doppler evidence of interatrial shunt. Aortic Valve The aortic valve opens well. There is no hemodynamically significant aortic valvular stenosis. No aortic regurgitation is present. Mitral Valve The mitral valve is normal in structure. No evidence of mitral valve stenosis. Trace mitral regurgitation is present. Tricuspid Valve The tricuspid valve leaflets are thin and pliable. Trace tricuspid regurgitation. There is insufficient TR jet to estimate RVSP. Pulmonic Valve The pulmonary valve is grossly normal in structure. Trace pulmonic valve regurgitation is present. Great Vessels The aortic root is normal in size. IVC is normal in size and collapses >50% with inspiration. Pericardium There is no pericardial effusion. Other Information Study Quality: Technically Difficult Conclusion Normal biventricular systolic function. No significant valvular stenosis or regurgitation. Electronically signed by : Cesia Quijano MD 04/02/2025 19:28:32
== END 2025-03-24 23:59 | disposition home or self-care (01) ==
LOC: RT 11:17
PROVIDERS: PCP Nurse Practitioner Family; Visit Provider Physician Assistant
DX: I25.118 Atherosclerotic heart disease of native coronary artery with other forms of angina pectoris (principal)
CPT/HCPCS: 93306

== ENCOUNTER 2025-03-27 07:09 | Outpatient (CLI) | payer MEDICARE, SELFPAY ==
--- NOTE | 2025-03-27 | CA_ITS ---
APPROVED REPORT Exam: Pharmacologic Technologist: Padma Ng Stress Nurse: Cheyanne Davison Ht: 5 ft 4 in Wt: 239 lbs BSA: 2.11 m2 HR: 75 bpm BP: 140/82 mmHg Rhythm: Sinus Rhythm Indications: Chest pain, CAD history Medical History Medical History: HTN, Hyperlipidemia, Smoking Cardiac Risk Factors: HTN, Hyperlipidemia, , FHX of CAD, Smoking Stress Test Details Test: Lexiscan HR Resting HR: 75 bpm Max Heart Rate (APMHR): 156.569601 bpm Target HR (85% APMHR): 132.081653 bpm Recovery HR: 88 bpm BP Resting BP: 140.0/82.0 mmHg Max BP: 162.0/81.0 mmHg Recovery BP: 162.0/81.0 mmHg ECG Resting ECG: Sinus Rhythm Stress ECG Conclusion Patient had dyspnea during test PAC Less than 0.5mm upsloping ST segment changes Electronically signed by : Cesia Quijano MD 03/28/2025 13:36:38
--- OUTSIDE RECORDS SUMMARY | 2025-03-27 07:12 | XMS_ITS | Clinical Summary ---
Author Organization [facility] Phone Care Team Providers Care Maintenance Data Analyst Name Role Phone Unavailable Primary Care Provider [...] Date Smoking Tobacco: Every Day Cigarettes 1 50 Started: 1975 Smokeless Tobacco: Never Comments:Has tried [...] this topic Medical Devices Implanted Type Area Strap Setter Device Identifier Shelf Expiration Date Model / Serial / Lot Kt Bone Cemnt [id number] [employer] [facility] - [id number] Implanted:Qty: 1 on 04/28/2023 by Carlos Holbrook MD at [facility] Right: Knee NITO:NITO 10/10/2025 [id number] / / [id number] Procedures Procedure Name Priority Date/Time Associated Diagnosis [...] EDT Impressions 08/24/2023 8:28 AM EDT Negative ([id number]) ~ RECOMMENDATION: Routine screening mammogram in 1 [...] the next mammogram, in accordance with the [employer] [place] [employer] and the Society of Breast Imaging recommendations. Narrative 08/24/2023 8:28 AM EDT Procedure:MM MAMMO DIGITAL HORACE SCREEN BILAT ~ Reason for exam: screening, asymptomatic. Z12.31-Encounter for screening mammogram for malignant neoplasm of mynrwa-VGL-14-CM ~ MM MAMMO DIGITAL HORACE SCREEN BILAT [...] for screening mammogram for malignant neoplasm of [id number]-JNZ-[id number]-CM ~ MM MAMMO DIGITAL HORACE SCREEN BILAT Bilateral CC and MLO view(s) were taken. There are scattered fibroglandular densities. Prior study comparison: Compared with prior studies the most recentbeing 03/17/21 No mammographic evidence of malignancy. ~ IMPRESSION: Negative ([id number]-[id number]-4) ~ RECOMMENDATION: Routine screening mammogram in 1 [...] the next mammogram, in accordance with the [place] and the Society of Breast Imaging recommendations. 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 Plan / Payer (Ef fective 2015-) Name:Anette Gomes Relation to Subscriber:Employee Name:[employer] Date of :1966 (Home) Address: ATTN: [employer]IR[employer] [place] [address] [address] [place] [address] Payer ID:Not on file Group ID:Not on file Type:Not on file Address: ATTN: [employer]IRA [address] MEDICARE ADVANTAGE MR AN[employer] MEDICARE ADVANTAGE MR * Guarantor: [employer] Account Type Relation to Patient Date of Phone Billing Address [employer] 1966 ATTN: [employer] [address] [address] [place] [address] 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 Plan / Payer (Ef fective 2015-Present) Name:Anette Gomes Relation to Subscriber:Employee Name:[employer] Date of :1966 (Home) Address: ATTN: [employer] [place] [address] [address] [place] [address] Payer ID:Not on file Group ID:Not on file Type:Not on file Address: ATTN: [employer] [place] [address] [address] [place] [address] * Guarantor: [place] [employer] [employer] Account Type Relation to Patient Date of Phone Billing Address Corporate Other [address] [facility] Attn: Shaneka [facility] [address] [place] [id number]
--- OUTSIDE RECORDS SUMMARY | 2025-03-27 07:12 | XMS_ITS | Data Portability ---
Author Organization [facility] Address [address] [place] [address] Assessment Encounter Date Assessment Date Assessment LastModified by Organization Details LastModified Time 07/10/2024 07/10/2024 review card records, get notes mark Not available 07/10/2024 11:24:16 10/21/2024 10/21/2024 Service was provided using audio revoPTteleHelp [employer] . The patient verbally consents to virtual services and the consent is documented in the medical record prior to using the service. Patient is located at their place of residence in [facility]. Provider is located at medical clinic in [facility]. Names and roles of all persons participating in telemedicine services include:[email or web address] 15 minutes spent in discussion with patient [email or web address] Not available 10/22/2024 09:47:31 Plan of Treatment Reminders Order Date Submit Date Provider Last Modified By Organization Details Last Modified Time Details Appointments None recorded. Lab magnesium, serum or plasma 2024 025 [facility], [address], [address], [place], [address], 5 13:08:09 iron + total iron-tatum ng capacity (TIBC), serum 2024 025 [facility], [address], [address], [place], [address], 5 13:08:07 cobalamin and folate panel, serum 2024 025 [facility], [address], [place], [place], [address], 5 13:08:08 CK (creatine kinase), total, serum 2024 025 [facility], [address], [place] [address], [place], [address], 5 13:08:08 CMP, serum or plasma 2024 025 [facility], [address], [place], [place], [address], 5 13:08:06 CBC w/ auto diff 2024 025 [facility], [address], [place] [address], [place], [address], 5 13:08:05 TSH + free T4, serum 2024 025 [facility], [address], [place] [address], [place], [address], 5 07:41:01 magnesium, serum or plasma 2024 025 [facility], [address], [place] [address], [place], [address], 5 07:41:05 CMP, serum or plasma 2024 025 [facility], [address], [place], [place], [address], 5 07:41:03 CBC w/ auto diff 2024 025 [facility], [address], [place] [address], [place], [address], 5 07:41:02 HbA1c (hemoglobi n A1c), blood 2024 025 [facility], [address], [place] [address], [place], [address], 5 07:41:04 vitamin D, 25-hydroxy , total, serum 2024 025 [place] [facility], [address], [place] [address], [place], [address], 5 07:41:[address]/dietiti an referral 2024 025 [facility], [address] [place] [address], [address], 5 17:45:17 Procedures None recorded. Surgeries None recorded. Imaging LDCT, chest, for lung cancer screening 2024 025 [facility], [address] [place] [address], [id number], 5 13:04:42 Medication Orders prednisone 20 mg tablet 2024 025 [facility], [address] [place] [address], [address], 5 15:00:55 azithromyc in 250 mg tablet 2024 025 [facility], [address] [place] [address], [address], 5 12:18:18 azithromyc in 250 mg tablet 2024 025 [email or web address] [facility], [address] [place] [address], [address], 5 12:16:35 prednisone 20 mg tablet 2024 025 [facility], [address] [place] [address], [address], 5 05:01:23 ipratropiu m 0.5 mg-albuter ol 3 mg (2.5 mg base)/3 mL nebulizati on soln 2024 025 [facility], [address] [place] [address], [place], [address], 5 10:40:08 nicotine 21 mg/24 hr daily transderma l patch 2024 025 [facility], [address] [place] [address], [address], 5 10:41:08 nicotine (polacrile x) 4 mg buccal lozenge [address], [place], [address], 5 10:41:08 trazodone 100 mg tablet 2024 025 [facility], [address] [place] [address], [address], 5 14:17:27 methocarba mol 500 mg tablet [address], [address], 5 14:17:27 metformin 500 mg tablet [address], [address], 5 14:16:34 furosemide 40 mg tablet [address], [address], 5 11:23:15 potassium chloride ER 10 mEq tablet,ext ended release 2024 025 [facility], [address] [place] [address], [address], 5 11:23:13 paroxetine 10 mg tablet 2024 025 [facility] - [address], [address], 5 11:23:11 meloxicam 15 mg tablet 2024 025 [facility] - [address], [address], 5 11:23:09 metoprolol succinate ER 25 mg tablet,ext ended release 24 hr [address], [address], 11:23:09 spironolac tone 100 mg tablet [address], [address], 5 11:23:10 clopidogre l 75 mg tablet [address], [address], 5 11:23:14 rosuvastat in 5 mg tablet [address], [address], 5 11:23:16 Anoro Ellipta 62.5 mcg-25 mcg/actuat ion powder for inhalation [address], [address], 5 11:23:10 Solu-Medro l (PF) 125 mg/2 mL solution for injection 2024 025 [email or web address] [facility], [address] [place] [address], [place], [address], 5 09:47:32 prednisone 20 mg tablet 2024 025 [facility], [address] [place] [address], [place], [address], 5 05:01:23 azithromyc in 500 mg tablet [address] [email or web address], [place], [address], 5 09:50:39 ceftriaxon e 1 gram solution for injection 2024 025 [email or web address] [facility], [address] [place] [address], [place], [address], 5 09:47:06 Patient TargetsNo targets recorded. Patient Instructions Encounter Date Encounter Id Patient Instructions Last Modified By Organization Details Last Modified Time 07/10/2024 [id number] medical record request* - Please provide recent visit note(s) and any relevant results [email or web address] Not available 07/18/2024 16:00:25 chronic obstructive pulmonary disease (COPD): care instructions [email or web address] Not available 07/10/2024 11:23:06 learning about copd and how to prevent lung infections [email or web address] Not available 07/10/2024 11:23:06 07/25/2024 [id number] insomnia: care instructions [email or web address] Not available 07/25/2024 14:16:33 All questions answered and pt/guardian satisfied with treatment plan. Call with changes RTC or ED if symptoms change or worsen Keep next interval checkup Cont. chronic meds as prescribed Chronic conditions are stable Discussed natural and expected course of this diagnosis and need to alert the office if symptoms do not follow expected course or if any worsens [email or web address] Not available 07/25/2024 21:01:15 09/19/2024 [id number] smoking cessatio n counseling, greater than 3 minutes up to 10 minutes* [email or web address] Not available 09/19/2024 10:40:07 body mass index: care instructions [email or web address] Not available 09/19/2024 10:38:41 learning about healthy weight [email or web address] Not available 09/19/2024 10:38:41 All questions answered and pt/guardian satisfied with treatment plan. Call with changes RTC or ED if symptoms change or worsen Keep next interval checkup Cont. chronic meds as prescribed Chronic conditions are stable Discussed natural and expected course of this diagnosis and need to alert the office if symptoms do not follow expected course or if any worsens [email or web address] Not available 09/19/2024 10:42:33 10/21/2024 [id number] All questions answered and pt/guardian satisfied with treatment plan. Call with changes RTC or ED if symptoms change or worsen Keep next interval checkup Cont. 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 Body mass index 30+ - obesity Referring Physician: Juwan Gomes, Family Medicine, Encounter Date: 09/19/2024 Results Created Date Observation Date Name Description Value Unit Range Abnormal Flag Note LastModifiedBy Organization Detail LastModifiedTime 07/11/1907/11/2024 TSH+F REE T4 TSH 2.260 uIU/m L 0.450- 4.500 normal Not Available [facility] ([facility]) [address] [facility], [place], [address], 07/11/2024 07:41:01 07/11/1907/11/2024 TSH+F REE T4 T4,free(dire ct) 1.44 NG/dL 0.82-1 .77 normal Not Available [facility] ([facility]) [address] [facility], [place], [address], 07/11/2024 07:41:01 07/11/19 25 07/11/2024 CBC WITH DIFFE RENTI AL/PL ATELE T WBC 6.5 x10e3 /uL 3.4-10 .8 normal Not Available [facility] ([facility]) [address] [place], [address], 07/11/2024 07:41:02 07/11/19 25 07/11/2024 CBC WITH DIFFE RENTI AL/PL ATELE T RBC 5.15 x10e6 /uL 3.77-5 .28 normal Not Available [facility] ([facility]) [address] [place], [address], 07/11/2024 07:41:02 07/11/19 25 07/11/2024 CBC WITH DIFFE RENTI AL/PL ATELE T hemoglobin 15.3 g/dL 11.1-1 5.9 normal Not Available [facility] ([facility]) [address] [place], [address], 07/11/2024 07:41:02 07/11/19 25 07/11/2024 CBC WITH DIFFE RENTI AL/PL ATELE T hematocrit 47.9 % 34.0-4 6.6 above high normal Not Available [facility] ([facility]) [address] [place], [address], 07/11/2024 07:41:02 07/11/19 25 07/11/2024 CBC WITH DIFFE RENTI AL/PL ATELE T MCV 93 fL 79-97 normal Not Available [facility] ([facility]) [address] [place], [address], 07/11/2024 07:41:02 07/11/19 25 07/11/2024 CBC WITH DIFFE RENTI AL/PL ATELE T MCH 29.7 pg 26.6-3 3.0 normal Not Available [facility] ([facility]) [address] [facility], [place], [address], 07/11/2024 07:41:02 07/11/19 25 07/11/2024 CBC WITH DIFFE RENTI AL/PL ATELE T MCHC 31.9 g/dL 31.5-3 5.7 normal Not Available [facility] ([facility]) [address] [facility], [place], [address], 07/11/2024 07:41:02 07/11/19 25 07/11/2024 CBC WITH DIFFE RENTI AL/PL ATELE T RDW 13.4 % 11.7-1 5.4 Not Available [facility] ([facility]) [address] [facility], [place], [address], 07/11/2024 07:41:02 07/11/19 25 07/11/2024 CBC WITH DIFFE RENTI AL/PL ATELE T platelets 239 x10e3 /uL 150-45 0 normal Not Available [facility] ([facility]) [address] [facility], [place], [address], 07/11/2024 07:41:02 07/11/19 25 07/11/2024 CBC WITH DIFFE RENTI AL/PL ATELE T neutrophils 59 % not estab. normal Not Available [facility] ([facility]) [address] [facility], [place], [address], 07/11/2024 07:41:02 07/11/19 25 07/11/2024 CBC WITH DIFFE RENTI AL/PL ATELE T lymphs 29 % not estab. normal Not Available [facility] ([facility]) [address] [facility], [place], [address], 07/11/2024 07:41:02 07/11/19 25 07/11/2024 CBC WITH DIFFE RENTI AL/PL ATELE T monocytes 6 % not estab. normal Not Available [facility] ([facility]) [address] [place], [address], 07/11/2024 07:41:02 07/11/19 25 07/11/2024 CBC WITH DIFFE RENTI AL/PL ATELE T eos 3 % not estab. normal Not Available [facility] ([facility]) [address] [place], [address], 07/11/2024 07:41:02 07/11/19 25 07/11/2024 CBC WITH DIFFE RENTI AL/PL ATELE T basos 2 % not estab. 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 0 normal Not Available [facility] ([facility]) [address] [place], [address], 07/11/2024 07:41:02 07/11/19 25 07/11/2024 CBC WITH DIFFE RENTI AL/PL ATELE T lymphs (absolute) 1.9 x10e3 /uL 0.7-3. 1 normal Not Available [facility] ([facility]) [address] [place], [address], 07/11/2024 07:41:02 07/11/19 25 07/11/2024 CBC WITH DIFFE RENTI AL/PL ATELE T monocytes(ab solute) 0.4 x10e3 /uL 0.1-0. 9 normal Not Available [facility] ([facility]) [address] [place], [address], 07/11/2024 07:41:02 07/11/19 25 07/11/2024 CBC WITH DIFFE RENTI AL/PL ATELE T eos (absolute) 0.2 x10e3 /uL 0.0-0. 4 normal Not Available [facility] ([facility]) [address] [facility], [place], [address], 07/11/2024 07:41:02 07/11/19 25 07/11/2024 CBC WITH DIFFE RENTI AL/PL ATELE T baso (absolute) 0.1 x10e3 /uL 0.0-0. 2 normal Not Available [facility] ([facility]) [address] [facility], [place], [address], 07/11/2024 07:41:02 07/11/19 25 07/11/2024 CBC WITH DIFFE RENTI AL/PL ATELE T immature granulocytes 1 % not estab. Not Available [facility] ([facility]) [address] [facility], [place], [address], 07/11/2024 07:41:02 07/11/19 25 07/11/2024 CBC WITH DIFFE RENTI AL/PL ATELE T immature grans (abs) 0.0 x10e3 /uL 0.0-0. 1 Not Available [facility] ([facility]) [address] [place], [address], 07/11/2024 07:41:02 07/11/19 25 07/11/2024 CBC WITH DIFFE RENTI AL/PL ATELE T NRBC SEMICONDUCTOR WAFERS TESTER Not Available [facility] ([facility]) [address] [facility], [place], [address], 07/11/2024 07:41:02 07/11/19 25 07/11/2024 CBC WITH DIFFE RENTI AL/PL ATELE T hematology comments: SEMICONDUCTOR WAFERS TESTER Not Available [facility] ([facility]) [address] [place], [address], 07/11/2024 07:41:02 07/11/19 25 07/11/2024 COMP. METAB OLIC PANEL (14) glucose 93 mg/dL 70-99 normal Not Available [facility] ([facility]) [address] [facility], [place], [address], 07/11/2024 07:41:03 07/11/19 25 07/11/2024 COMP. METAB OLIC PANEL (14) BUN 14 mg/dL 8-27 normal Not Available [facility] ([facility]) [address] [place], [address], 07/11/2024 07:41:03 07/11/19 25 07/11/2024 COMP. METAB OLIC PANEL (14) creatinine 0.92 mg/dL 0.57-1 .00 normal Not Available [facility] ([facility]) [address] [place], [address], 07/11/2024 07:41:03 07/11/19 25 07/11/2024 COMP. METAB OLIC PANEL (14) eGFR 70 mL/mi n/1.7 3 >59 normal Not Available [facility] ([facility]) [address] [place], [address], 07/11/2024 07:41:03 07/11/19 25 07/11/2024 COMP. METAB OLIC PANEL (14) BUN/creatini ne ratio 15 12-28 normal Not Available [facility] ([facility]) [address] [place], [address], 07/11/2024 07:41:03 07/11/19 25 07/11/2024 COMP. METAB OLIC PANEL (14) sodium 141 mmol/ L 134-14 4 normal Not Available [facility] ([facility]) [address] [place], [address], 07/11/2024 07:41:03 07/11/19 25 07/11/2024 COMP. METAB OLIC PANEL (14) potassium 4.9 mmol/ L 3.5-5. 2 normal Not Available [facility] ([facility]) [address] [place], [address], 07/11/2024 07:41:03 07/11/19 25 07/11/2024 COMP. METAB OLIC PANEL (14) chloride 102 mmol/ L 96-106 normal Not Available [facility] ([facility]) [address] [place] [place], [address], 07/11/2024 07:41:03 07/11/19 25 07/11/2024 COMP. METAB OLIC PANEL (14) carbon dioxide, total 25 mmol/ L 20-29 normal Not Available [facility] ([facility]) [address] [place], [address], 07/11/2024 07:41:03 07/11/19 25 07/11/2024 COMP. METAB OLIC PANEL (14) calcium 9.2 mg/dL 8.7-10 .3 normal Not Available [facility] ([facility]) [address] [place], [address], 07/11/2024 07:41:03 07/11/19 25 07/11/2024 COMP. METAB OLIC PANEL (14) protein, total 6.2 g/dL 6.0-8. 5 normal Not Available [facility] ([facility]) [address] [place], [address], 07/11/2024 07:41:03 07/11/19 25 07/11/2024 COMP. METAB OLIC PANEL (14) albumin 4.0 g/dL 3.9-4. 9 normal Not Available [facility] ([facility]) [address] [place], [address], 07/11/2024 07:41:03 07/11/19 25 07/11/2024 COMP. METAB OLIC PANEL (14) globulin, total 2.2 g/dL 1.5-4. 5 Not Available [facility] ([facility]) [address] [place], [address], 07/11/2024 07:41:03 07/11/19 25 07/11/2024 COMP. METAB OLIC PANEL (14) bilirubin, total 0.3 mg/dL 0.0-1. 2 normal Not Available [facility] ([facility]) [address] [place], [address], 07/11/2024 07:41:03 07/11/19 25 07/11/2024 COMP. METAB OLIC PANEL (14) alkaline phosphatase 86 IU/L 44-121 normal Not Available [facility]) [address] [facility], [place], [address], 07/11/2024 07:41:03 07/11/19 25 07/11/2024 COMP. METAB OLIC PANEL (14) AST (SGOT) 14 IU/L 0-40 normal Not Available [facility] ([facility]) [address] [place], [address], 07/11/2024 07:41:03 07/11/19 25 07/11/2024 COMP. METAB OLIC PANEL (14) ALT (SGPT) 16 IU/L 0-32 normal Not Available [facility] ([facility]) [address] [place], [address], 07/11/2024 07:41:03 07/11/19 25 07/11/2024 HEMOG LOBIN A1C hemoglobin A1C 6.1 % 4.8-5. 6 above high normal Predi abete s: 5.7 - 6.4 Diabe sharif: >6.4 Glyce max contr ol for adult s with diabe sharif: <7.0 Not Available [facility] ([facility]) [address] [place], [address], 07/11/2024 07:41:04 07/11/19 25 07/11/2024 VITAM IN [...] um and D. Anthony barboza [place]: [facility] . 2. Michael mir MF, Dottie mckenzie [place], Jayda off-F errar i ZACARIAS, et al. Evalu ation , treat ment, and preve ntion of vitam in D defic iency : an Endoc rine Socie ty clini ivon pract ice guide line. JCEM. 2010; 96(7) :1911 -30. Not Available [facility] ([facility]) [address] [place], [address], 07/11/2024 07:41:05 07/11/19 25 07/11/2024 MAGNE SIUM magnesium 2.4 mg/dL 1.6-2. 3 above high normal Not Available [facility] ([facility]) [address] [place], [address], 07/11/2024 07:41:05 09/20/19 25 09/20/2024 CBC WITH DIFFE RENTI AL/PL ATELE T WBC 7.5 x10e3 /uL 3.4-10 .8 normal Not Available [facility] ([facility]) [address] [place], [address], 09/20/2024 13:08:05 09/20/19 25 09/20/2024 CBC WITH DIFFE RENTI AL/PL ATELE T RBC 5.11 x10e6 /uL 3.77-5 .28 normal Not Available [facility] ([facility]) [address] [place], [address], 09/20/2024 13:08:05 09/20/19 25 09/20/2024 CBC WITH DIFFE RENTI AL/PL ATELE T hemoglobin 15.5 g/dL 11.1-1 5.9 normal Not Available [facility] ([facility]) [address] [place], [address], 09/20/2024 13:08:05 09/20/19 25 09/20/2024 CBC WITH DIFFE RENTI AL/PL ATELE T hematocrit 49.4 % 34.0-4 6.6 above high normal Not Available [facility] ([facility]) [address] [place], [address], 09/20/2024 13:08:05 09/20/19 25 09/20/2024 CBC WITH DIFFE RENTI AL/PL ATELE T MCV 97 fL 79-97 normal Not Available [facility] ([facility]) [address] [place], [address], 09/20/2024 13:08:05 09/20/19 25 09/20/2024 CBC WITH DIFFE RENTI AL/PL ATELE T MCH 30.3 pg 26.6-3 3.0 normal Not Available [facility] ([facility]) [address] [place], [address], 09/20/2024 13:08:05 09/20/19 25 09/20/2024 CBC WITH DIFFE RENTI AL/PL ATELE T MCHC 31.4 g/dL 31.5-3 5.7 below low normal Not Available [facility] ([facility]) [address] [place], [address], 09/20/2024 13:08:05 09/20/19 25 09/20/2024 CBC WITH DIFFE RENTI AL/PL ATELE T RDW 13.6 % 11.7-1 5.4 Not Available [facility] ([facility]) [address] [facility], [place], [address], 09/20/2024 13:08:05 09/20/19 25 09/20/2024 CBC WITH DIFFE RENTI AL/PL ATELE T platelets 242 x10e3 /uL 150-45 0 normal Not Available [facility] ([facility]) [address] [facility], [place], [address], 09/20/2024 13:08:05 09/20/19 25 09/20/2024 CBC WITH DIFFE RENTI AL/PL ATELE T neutrophils 61 % not estab. normal Not Available [facility] ([facility]) [address] [facility], [place], [address], 09/20/2024 13:08:05 09/20/19 25 09/20/2024 CBC WITH DIFFE RENTI AL/PL ATELE T lymphs 28 % not estab. normal Not Available [facility] ([facility]) [address] [facility], [place], [address], 09/20/2024 13:08:05 09/20/19 25 09/20/2024 CBC WITH DIFFE RENTI AL/PL ATELE T monocytes 6 % not estab. normal Not Available [facility] ([facility]) [address] [facility], [place], [address], 09/20/2024 13:08:05 09/20/19 25 09/20/2024 CBC WITH DIFFE RENTI AL/PL ATELE T eos 2 % not estab. normal Not Available [facility] ([facility]) [address] [facility], [place], [address], 09/20/2024 13:08:05 09/20/19 25 09/20/2024 CBC WITH DIFFE RENTI AL/PL ATELE T basos 2 % not estab. 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 0 normal Not Available [facility] ([facility]) [address] [facility], [place], [address], 09/20/2024 13:08:05 09/20/19 25 09/20/2024 CBC WITH DIFFE RENTI AL/PL ATELE T lymphs (absolute) 2.1 x10e3 /uL 0.7-3. 1 normal Not Available [facility] ([facility]) [address] [place], [address], 09/20/2024 13:08:05 09/20/19 25 09/20/2024 CBC WITH DIFFE RENTI AL/PL ATELE T monocytes(ab solute) 0.5 x10e3 /uL 0.1-0. 9 normal Not Available [facility] ([facility]) [address] [place], [address], 09/20/2024 13:08:05 09/20/19 25 09/20/2024 CBC WITH DIFFE RENTI AL/PL ATELE T eos (absolute) 0.2 x10e3 /uL 0.0-0. 4 normal Not Available [facility] ([facility]) [address] [place], [address], 09/20/2024 13:08:05 09/20/19 25 09/20/2024 CBC WITH DIFFE RENTI AL/PL ATELE T baso (absolute) 0.1 x10e3 /uL 0.0-0. 2 normal Not Available [facility] ([facility]) [address] [facility], [place], [address], 09/20/2024 13:08:05 09/20/19 25 09/20/2024 CBC WITH DIFFE RENTI AL/PL ATELE T immature granulocytes 1 % not estab. Not Available [facility] ([facility]) [address] [facility], [place], [address], 09/20/2024 13:08:05 09/20/19 25 09/20/2024 CBC WITH DIFFE RENTI AL/PL ATELE T immature grans (abs) 0.0 x10e3 /uL 0.0-0. 1 Not Available [facility] ([facility]) [address] [facility], [place], [address], 09/20/2024 13:08:05 09/20/19 25 09/20/2024 CBC WITH DIFFE RENTI AL/PL ATELE T NRBC SEMICONDUCTOR WAFERS TESTER Not Available [facility] ([facility]) [address] [facility], [place], [address], 09/20/2024 13:08:05 09/20/19 25 09/20/2024 CBC WITH DIFFE RENTI AL/PL ATELE T hematology comments: SEMICONDUCTOR WAFERS TESTER Not Available [facility] ([facility]) [address] [place], [address], 09/20/2024 13:08:05 09/20/19 25 09/20/2024 COMP. METAB OLIC PANEL (14) glucose 90 mg/dL 70-99 normal Not Available [facility] ([facility]) [address] [place], [address], 09/20/2024 13:08:06 09/20/19 25 09/20/2024 COMP. METAB OLIC PANEL (14) BUN 21 mg/dL 8-27 normal Not Available [facility] ([facility]) [address] [place], [address], 09/20/2024 13:08:06 09/20/19 25 09/20/2024 COMP. METAB OLIC PANEL (14) creatinine 0.77 mg/dL 0.57-1 .00 normal Not Available [facility] ([facility]) [address] [place], [address], 09/20/2024 13:08:06 09/20/19 25 09/20/2024 COMP. METAB OLIC PANEL (14) eGFR 86 mL/mi n/1.7 3 >59 normal Not Available [facility] ([facility]) [address] [place], [address], 09/20/2024 13:08:06 09/20/19 25 09/20/2024 COMP. METAB OLIC PANEL (14) BUN/creatini ne ratio 27 12-28 normal Not Available [facility] ([facility]) [address] [place] [place], [address], 09/20/2024 13:08:06 09/20/19 25 09/20/2024 COMP. METAB OLIC PANEL (14) sodium 139 mmol/ L 134-14 4 normal Not Available [facility] ([facility]) [address] [place] [place], [address], 09/20/2024 13:08:06 09/20/19 25 09/20/2024 COMP. METAB OLIC PANEL (14) potassium 5.1 mmol/ L 3.5-5. 2 normal Not Available [facility] ([facility]) [address] [place], [address], 09/20/2024 13:08:06 09/20/19 25 09/20/2024 COMP. METAB OLIC PANEL (14) chloride 99 mmol/ L 96-106 normal Not Available [facility] ([facility]) [address] [place], [address], 09/20/2024 13:08:06 09/20/19 25 09/20/2024 COMP. METAB OLIC PANEL (14) carbon dioxide, total 23 mmol/ L 20-29 normal Not Available [facility] ([facility]) [address] [facility] [place], [address], 09/20/2024 13:08:06 09/20/19 25 09/20/2024 COMP. METAB OLIC PANEL (14) calcium 9.5 mg/dL 8.7-10 .3 normal Not Available [facility] ([facility]) [address] [place], [address], 09/20/2024 13:08:06 09/20/19 25 09/20/2024 COMP. METAB OLIC PANEL (14) protein, total 6.6 g/dL 6.0-8. 5 normal Not Available [facility] ([facility]) [address] [facility] [place], [address], 09/20/2024 13:08:06 09/20/19 25 09/20/2024 COMP. METAB OLIC PANEL (14) albumin 4.4 g/dL 3.9-4. 9 normal Not Available [facility] ([facility]) [address] [facility] [place], [address], 09/20/2024 13:08:06 09/20/19 25 09/20/2024 COMP. METAB OLIC PANEL (14) globulin, total 2.2 g/dL 1.5-4. 5 Not Available [facility] ([facility]) [address] [facility] [place], [address], 09/20/2024 13:08:06 09/20/19 25 09/20/2024 COMP. METAB OLIC PANEL (14) bilirubin, total <0.2 mg/dL 0.0-1. 2 Not Available [facility] ([facility]) [address] [facility] [place], [address], 09/20/2024 13:08:06 09/20/19 25 09/20/2024 COMP. METAB OLIC PANEL (14) alkaline phosphatase 91 IU/L 44-121 normal Not Available [facility] ([facility]) [address] [place], [address], 09/20/2024 13:08:06 09/20/19 25 09/20/2024 COMP. METAB OLIC PANEL (14) AST (SGOT) 16 IU/L 0-40 normal Not Available [facility] ([facility]) [address] [place], [address], 09/20/2024 13:08:06 09/20/19 25 09/20/2024 COMP. METAB OLIC PANEL (14) ALT (SGPT) 17 IU/L 0-32 normal Not Available [facility] ([facility]) [address] [place], [address], 09/20/2024 13:08:06 09/20/19 25 09/20/2024 IRON AND TIBC iron bind.cap.(TI BC) 365 ug/dL 250-45 0 normal Not Available [facility] ([facility]) [address] [place], [address], 09/20/2024 13:08:07 09/20/19 25 09/20/2024 IRON AND TIBC UIBC 306 ug/dL 118-36 9 normal Not Available [facility] ([facility]) [address] [place], [address], 09/20/2024 13:08:07 09/20/19 25 09/20/2024 IRON AND TIBC iron 59 ug/dL 27-139 normal Not Available [facility] ([facility]) [address] [place], [address], 09/20/2024 13:08:07 09/20/19 25 09/20/2024 IRON AND TIBC iron saturation 16 % 15-55 normal Not Available [facility] ([facility]) [address] [facility], [place], [address], 09/20/2024 13:08:07 09/20/19 25 09/20/2024 VITAM IN B12 AND FOLAT E vitamin B12 427 pg/mL 232-12 45 normal Not Available [facility] ([facility]) [address] [facility], [place], [address], 09/20/2024 13:08:08 09/20/19 25 09/20/2024 VITAM IN B12 AND FOLAT E folate (folic acid), serum 9.7 NG/mL >3.0 normal A serum folat e armida ntrat ion of less than 3.1 ng/mL is consi dered to repre sent clini ivon defic iency . Not Available [facility] ([facility]) [address] [facility], [place], [address], 09/20/2024 13:08:08 09/20/19 25 09/20/2024 CREAT INE KINAS E,TOT AL creatine kinase,total 224 U/L 32-182 above high normal Not Available [facility] ([facility]) [address] [facility], [place], [address], 09/20/2024 13:08:08 09/20/19 25 09/20/2024 MAGNE SIUM magnesium 2.2 mg/dL 1.6-2. 3 normal Not Available [facility] ([facility]) [address] [facility], [place], [address], 09/20/2024 13:08:09 07/11/19 25 07/05/2024 , echo ardio gram No observ ation record ed. [address], [place], [address], 07/10/2024 15:10:41 09/27/19 25 LDCT, chest , for lung cance r scree brian No observ ation record ed. [email or web address] [place] [address], [address], 09/27/2024 15:05:49 Result Notes None recorded. Problems Name Problem SNOMED Code Status Onset Date Resolution Date Notes Provider Name and Address Organization Details Recorded Time Suspecte d COVID-19 137759934 Completed 05/19/2020 Removal Reason: Problem added by user [email or web address] from the COVID-19 watch flag Nilda Salazar null, [place] - [facility] 1 12:16:23 Asthma 830761731 Completed 201503/11/2019 Serene Rodriguez [place] [facility] 9 12:05:51 Chronic obstruct lisset pulmonar y disease 28525019 Active 2015 Crystal Marie [place] [facility] 0 14:16:06 History of depressi on 669917929 Completed 201508/03/2017 Serene Rodriguez [place] [facility] 8 13:45:42 Low back pain 476298749 Completed 201508/18/2020 Serene [place] [facility] 1 12:12:43 Tobacco user 887762517 Active 2015 Nilda Salazar [place] [facility] 0 14:16:06 Stented coronary artery 753682149 Active 2016 Rafael Whatley MD [address], [place], [address] , [place] - [facility] 3 12:52:47 Depressi ve disorder 37299625 Completed 201803/11/2019 Serene Rodriguez [place] [facility] 9 12:05:26 Chronic depressi on 360997283 Active 2018 Rafael Whatley MD [address], [place], [address] , [place] [facility] 3 12:52:36 Otitis media 56893491 Completed 201906/25/2019 Serene Rodriguez [place] [facility] 0 14:28:46 Benign hyperten mey 60233878 Active 2020 Rafael Whatley MD [address], [place], [address] , [place] [facility] 3 12:52:30 Chronic back pain 628690926 Active 2020 Rafael Whatley MD [address], [place], [address] , [place] [facility] 3 12:52:33 COVID-19 545080596 Completed 202106/29/2021 Nilda Meneses RN [address], [place], [address] , [place] [facility] 2 11:53:20 Mixed hyperlip idemia 474428620 Active 2021 Rafael Whatley MD [address], [place], [address] , [place] [facility] 3 12:52:41 Arthriti s of right knee joint 19690502535 93984 Active 2021 Rafael Whatley MD [address], [place], [address] , [place] [facility] 3 12:52:27 Pain in right foot 63471051494 9107 Active 2021 Alyssa Olson, [employer] [address], [place], [address] , [place] [facility] 2 15:53:47 Pain of right knee joint 72229960558 4100 Active 2021 Alyssa Olson, [employer] [address], [place], [address] , [place] [facility] 2 15:53:59 Prediabe sharif 244914506 Active 2024 Juwan Gomes PA-C [address], [place], [address] , [place] [facility] 5 14:15:53 Insomnia 176649343 Active 2024 Juwan Gomes PA-C [address], [place], [address] , [place] [facility] 5 14:15:59 Spasm 86273163 Active 2024 Juwan Gomes PA-C [address], [place], [address] , [place] [facility] 5 14:16:03 Tobacco dependen ce caused by cigarett es 92223082919 257494 Active 2024 Juwan Gomes PA-C [address], [place], [address] , [place] [facility] 5 10:14:09 Cramp in lower limb 433390288 Active 2024 Juwan Gomes PA-C [address], [place], [address] , [place] [facility] 5 10:36:33 Body mass index 30+ - obesity 713819268 Active 2024 Juwan Gomes PA-C [address], [place], [address] , [place] [facility] 5 10:38:18 Acute exacerba tion of chronic obstruct lisset pulmonar y disease 064999715 Active 2024 Juwan Gomes PA-C [address], [place], [address] , [place] [facility] 5 10:41:45 Nodule of lung 631320344 Active 2024 Juwan Gomes PA-C [address], [place], [address] , [place] [facility] 5 16:06:52 Problem Notes None recorded. Procedures Surgical History Date Name Laterality Status Provider Name and Address Organization Details Recorded Time 12/25/19 24 total knee replacement completed Crystal Marie [place] - [facility] 01/03/2024 08:41:46 09/08/19 24 Joint Injection completed Rafael Whatley MD [address], [place], [address], [place] [facility] 09/08/2023 12:04:18 07/18/19 24 Advance Care Planning completed Critsian Alvarez [place] - [facility] 07/17/2023 14:45:59 07/18/19 24 Functional Status Assessed completed Cristian Alvarez [place] [facility] 07/17/2023 14:45:59 04/28/19 24 Knee Surgery completed Kayla Hui [place] [facility] 07/21/2023 13:28:09 11/08/19 23 Joint Injection completed Rafael Whatley MD [address], [place], [address], [place] [facility] 11/07/2022 17:55:58 08/20/19 23 Joint Injection completed Rafael Whatley MD [address], [place], [address], [place] [facility] 08/19/2022 11:03:03 05/02/19 23 Joint Injection completed Rafael Whatley MD [address], [place], [address], [place] [facility] 05/02/2022 11:28:15 03/11/20 22 Joint Injection completed Rafeal Whatley MD [address], [place], [address], [place] [facility] 03/16/2022 14:13:57 12/16/19 22 [...] completed Nilda Meneses RN [address], [place], [address], [place] [facility] 09/07/2018 16:44:54 08/23/19 17 Cataract Surgery completed Kayla Staples [place] [facility] 08/03/2017 13:22:15 03/14/19 84 cholecystectomy completed Serene Rodriguez [place] - [facility] 08/18/2020 12:06:10 Stress test completed Kaylayaneth Crawleyfrancia [place] - [facility] 07/21/2023 13:28:09 Cardiac Cath completed Kayla Hui [place] - [facility] 07/21/2023 13:28:09 Imaging Results None recorded. Procedure Notes None recorded. Medical Equipment None Reported. Allergies Allergen ID Allergen Name Allergen Category Reaction Reaction Severity Criticality Documentation Date Start Date Code Code System Note Provider Name and Address Organization Details Recorded Time 815021 meclizine medicatio n hives Not available Not available 03/04/20252008 6676 RxNorm Not Available sharon - External Data Service - prod 5 12:08:12 97768 Antivert medicatio n hives Not available Not available 01/15/20162008 95339 RxNorm Not Available [facility] 6 09:55:50 Medications Name Sig Start [...] NEBULIZE R FOUR (4) TIMES DAILY NEEDED active Not Available Not Available No t Available albuterol sulfate 2.5 mg/3 mL (0.083 %) [...] Available Not Available No t Available nicotine (polacril ex) 2 mg gum CHEW ONE (1) PIECE EVERY TWO (2) HOURS NEEDED FOR NICOTINE CRAVINGS active Not Available Not Available No t [...] release(p art/cryst ) TAKE ONE (1) TABLET BY MOUTH EVERY DAY active Not Available Not Available No t Available amitripty line 25 mg tablet take [...] Not Available Not Available No t Available dicyclomi ne 20 mg tablet TAKE ONE (1) TABLET [...] 4:18PM Not Available Not Available Not Available nitroglyc junior 0.4 mg sublingua l tablet TAKE ONE (1) TABLET SUBLINGU ALLY EVERY FIVE (5) MINUTES NEEDED FOR CHEST PAIN; DO NOT EXCEED THREE (3) DOSES PER EPISODE active Not Available Not Available No t Available omeprazol e 20 mg capsule,d elayed [...] 600 mg tablet TAKE ONE (1) TABLET BY MOUTH THREE (3) TIMES DAILY active Not Available Not Available No t Available methylpre dnisolone 4 mg tablets in a dose pack TAKE DIRECTED 02/27 completed Not Available Not Available Not Available albuterol sulfate HFA 90 mcg/actua tion aerosol inhaler INHALE TWO (2) PUFFS EVERY SIX (6) HOURS NEEDED FOR SHORTNES S OF BREATH OR WHEEZING active Not Available Not Available No t Available colchicin e 0.6 mg tablet 1.2 [...] Not Available Not Available Not Available oxycodone 5 mg tablet TAKE ONE [...] Not Available Not Available No t Available rosuvasta tin 20 mg tablet TAKE 1 TABLET BY MOUTH DAILY active Not Available Not Available No [...] Updated DateTime 5 160.02 cm 37.7 kg/m2 32450.1 7 g 97.3 [degF] 96 % 79 /min 18 /min 118/70 mm[Hg] Katya valentino [facility] 5 13:10:09 Date Recorded Body height Body mass index (BMI) Body weight Heart rate Oxygen saturation Systolic And Diastolic Provider Name and Address Organization Details Last Updated DateTime 5 160.02 cm 39 kg/m2 64037.0 2 g 84 /min 96 % 116/74 mm[Hg] Saima Castillo [facility] 5 10:58:25 Date Recorded Body height Body mass index (BMI) Body weight Heart rate Oxygen saturation Systolic And Diastolic Provider Name and Address Organization Details Last Updated DateTime 5 160.02 cm 38.6 kg/m2 13435.1 4 g 83 /min 96 % 120/78 mm[Hg] Saima Castillo [facility] 5 13:14:25 Date Recorded Body height Body mass index (BMI) Body weight Heart rate Oxygen saturation Systolic And Diastolic Provider Name and Address Organization Details Last Updated DateTime 5 160.02 cm 39.3 kg/m2 046813. 51 g 86 /min 96 % 122/80 mm[Hg] Saima Castillo [facility] 5 09:53:07 Social History Question Answer Notes LastModified by Organizat ion Details LastModified Time Tobacco Smoking Status Current Every Day Smoker Nilda dominguez [facility] 03/11/2019 11:49:26 Able To Swim? Yes [email or web address] Informati on not available 10/31/2016 Do You Have An Advance Directive? No Information not available 10/31/2016 Do You Wear A Helmet When Biking? Yes [email or web address] Information not available 10/31/2016 Are You Blind Or Do You Have Difficulty Seeing? No [email or web address] Information not available 10/31/2016 Is Blood Transfusion Acceptable In An Emergency? No Information not available 07/21/2023 What Is Your Level Of Caffeine Consumption? Moderate [email or web address] Information not available 10/31/2016 How Much Tobacco Do You Chew? None Information not available 07/21/2023 Are You Deaf Or Do You Have Serious Difficulty Hearing? No [email or web address] Information not available 10/31/2016 What Type Of Diet Are You Following? REGULAR [email or web address] Information not available 10/31/2016 Which Illicit Or Recreational Drugs Have You Used? Denies [email or web address] Information not available 10/31/2016 What Is The Highest Grade Or Level Of School You Have Completed Or The Highest Degree You Have Received? [id number] Information not available 07/21/2023 Swimming/diving Yes [email or web address] Informa tion not available 10/31/2016 Have There Been Any Changes To Your Family Or Social Situation? No Information no t available 11/07/2022 What Is The Fluoride Status Of Your Home? Unknown Information not available 11/07/2022 Hard Of Hearing Or Deaf In One Or Both Ears? No [email or web address] Information not available 10/31/2016 Single Or Multi-level Home/work? Single Level Home [email or web address] Information not available 10/31/2016 Legally Blind In One Or Both Eyes? No [email or web address] Information no t available 10/31/2016 Live Alone Or With Others? With Others Information not available 10/31/2016 Marital Status Single Informat ion not available 10/31/2016 Do You Have A Medical Power Of Student Assistance Counselor? No Information not available 11/07/2022 What Was The Date Of Your Most Recent Tobacco Screening? 09/19/2024 [email or web address] Information not available 09/19/2024 How Many Children Do You Have? 2 [email or web address] Information not available 10/31/2016 What Is Your Current Pack Years? [email or web address] Information not available 03/11/2022 What Is Your Relationship Status? Information not available 07/21/2023 Do You Use Your Seat Belt Or Car Seat Routinely? Yes Information not available 07/21/2023 Seat Belts Used Routinely Yes [email or web address] Information not available 10/31/2016 Are You Sexually Active? No Information not available 11/07/2022 Smoke Alarm In Home Yes Information not available 10/31/2016 Do You Have Smoke And Carbon Monoxide Detectors In Your Home? No Information not available 11/07/2022 At What Age Did You Start Smoking Tobacco? 15 Information not available 03/11/2022 Are You Passively Exposed To Smoke? No Information no t available 11/07/2022 How Much Tobacco Do You Smoke? 1 PPD Information not available 03/11/2022 Do You Use Sunscreen Routinely? Yes [email or web address] Information not available 10/31/2016 Has Tobacco Cessation Counseling Been Provided? Yes [email or web address] Information not available 10/31/2016 On What Date Was Tobacco Cessation Counseling Provided? 09/19/2024 [email or web address] Information not available 09/19/2024 How Many Years Have You Smoked Tobacco? 47 Information not available 06/13/2023 Do You Have Difficulty Walking Or Climbing Stairs? No [email or web address] Information not available 10/31/2016 Sex: Female Functional Status Question Answer Note LastModified by Organizat ion Details LastModified Time Do you or have you ever used smokeless tobacco? Never used smokeless tobacco Information not available 07/21/2023 Are you currently employed? No disabled Information not available 11/07/2022 Do you have transportation difficulties? No Information not available 11/07/2022 Urinary incontinence assessment performed? Yes [email or web address] Information not available 10/31/2016 Are you able to care for yourself independently? Yes [email or web address] Information not available 10/31/2016 Do you have difficulty dressing, bathing, grooming, or toileting? No Information not available 10/31/2016 Do you or have you ever used e-cigarettes or vape? Never used electronic cigarettes Information not available 07/21/2023 What is your exercise level? None [email or web address] Information not available 10/31/2016 Do you use any illicit or recreational drugs? No Information not available 11/07/2022 Do you or have you ever used any other forms of tobacco or nicotine? No Information not available 11/07/2022 What is your level of alcohol consumption? None [email or web address] Information not available 10/31/2016 Are you able to walk independently without assistance or assistive devices? YESWOREST [email or web address] Information not available 10/31/2016 Do you have difficulty doing errands alone? No [email or web address] Information not available 10/31/2016 Mental Status Question Answer Note LastModified by Organizat ion Details LastModified Time Do you feel stressed (tense, restless, nervous, or anxious, or unable to sleep at night)? [id number] Information not available 11/07/2022 Do you have difficulty concentrating, remembering or making decisions? No [email or web address] Information no t available 10/31/2016 Family History [...] 2023 13:28:07 Brother Chronic obstructive pulmonary disease [email or web address] Not available 2017 13:23:35 Paternal Uncle Malignant [...] Time Tdap 11/01/19 17 completed Not Available [facility] 04/27/2019 03:54:32 Td (adult), 2 Lf tetanus toxoid, preservative free, adsorbed 06/20/18 97 completed CLAUDIA Cross - [facility] 04/18/2022 15:27:58 Influenza, split virus, quadrivalent, preservative 03/11/20 19 cancelled patient objection Not Available [facility] 04/27/2019 03:56:16 Past Encounters Encounter ID Performer Location Encounter Start Date Encounter Closed Date Diagnosis/Indication Diagnosis SNOMED-CT Code Diagnosis ICD10 Code Diagnosis IMO Codes Diagnosis Note [id number] Irineo Burrows MD [facility] [address] [place] [address] 01/21/2016 08:17:30 01/22/2016 09:01:18 Low back pain 691848680 M54.5 Acute urin ina tract infection 173172450 N39.0 Acute low back pain 2788 30359 M54.5 [id number] Irineo Burrows MD [address] [place] [address] 02/09/2016 11:13:16 02/09/2016 12:48:32 Low back pain 697845970 M54.5 Chronic ob structive pulmonary disease 79529507 J44.9 History of depression 16 6848578 Z86.59 Asthma 359094857 J45.90 9 Tobacco user 098064479 Z 72.0 [id number] Kristin Alvares APRN [facility] [address] [place] [address] 05/16/2016 11:07:49 05/16/2016 12:02:44 Cigarette smoker 37889690 F17.210 pt to start after illness Body mass index 30+ - obesity 640123200 Z68.39 Viral gastroenteritis 11 7165245 A08.4 Asthma 568786339 J45.90 9 Chronic ob structive pulmonary disease 87816919 J44.9 Candidiasis of skin 4988 3006 B37.2 Upper resp iratory infection 94031669 J06.9 [id number] Kristinfaye Alvares[address] [address] 07/06/2016 15:12:40 07/07/2016 07:27:54 Renewal of prescription 349122959 Z76.0 Moderate c hronic obstructive pulmonary disease 255764628 J44.9 Cough 23158928 R05 [id number] Kristinfaye Alvares[address] [place] [address] 07/11/2016 13:29:32 07/11/2016 14:54:32 Chronic obstructive pulmonary disease 70206736 J44.9 Upper resp iratory infection 88313353 J06.9 Conjunctivitis 7225634 H 10.9 [id number] Serene Rodriguez[address] [place] [address] 07/18/2016 12:23:00 07/18/2016 13:34:32 Renewal of prescription 724217470 Z76.0 Pruritic rash 99061654 L 28.2 [id number] Serene Rodriguez[address] [place] [address] 10/31/2016 09:52:37 10/31/2016 11:46:41 General examination of patient 141615647 Z00.00 Viral screening 67391887 4 Z11.59 Vaccination required 170 769142 Z28.3 Screening for malignant neoplasm of colon 195235393 Z12.11 Body mass index 30+ - obesity 677732956 Z68.36 Fibrocysti c disease of breast 91651683 N60.19 Chronic ob structive pulmonary disease 56139144 J44.9 Screening for cardiovascular system disease 454542112 Z13.6 Endocrine/ metabolic screening 684385567 Z13.228 Renewal of prescription 286828905 Z76.0 [id number] Serene Rodriguez [address] [place] [address] 12/05/2016 13:49:32 12/05/2016 14:52:22 Body mass index 30+ - obesity 484312405 Z68.36 Contact dermatitis 35911 004 L25.9 Renewal of prescription 447534348 Z76.0 [id number] Kristin Alvares [address] [place] [address] 12/14/2016 09:20:50 12/14/2016 15:01:40 Pain of elbow region 14884868 M25.949 [id number] Serene Rodriguez [address] [place] [address] 03/13/2017 08:33:21 03/13/2017 09:37:50 Dyspnea 864293736 R06.00 [id number] Serene Rodriguez [address] [place] [address] 08/03/2017 12:49:35 08/03/2017 16:39:02 Stented coronary artery 628561709 Z95.5 Chronic ob structive pulmonary disease 63508491 J44.9 Asthma 255732956 J45.90 9 Low back pain 018702842 M54.5 Body mass index 30+ - obesity 109736302 Z68.36 Obesity 782227537 E66.9 Contact dermatitis 71621 004 L25.9 Insomnia 824457381 G47.0 0 Renewal of prescription 764055221 Z76.0 Moderate c hronic obstructive pulmonary disease 355287800 J44.9 Gastroesop hageal reflux disease 049343166 K21.9 [id number] Serene Rodriguez [address] [place] [address] 08/24/2017 13:30:56 08/24/2017 15:22:15 Knee pain 95563517 M25.561 Swelling o f knee joint 012710917 M25.469 Edema of l ower extremity 933557237 R60.0 Abdominal pain 96629352 R10.9 Pain provo ked by walking 412721527 R52 Smoker 09723977 F17.548 [id number] Serene Rodriguez [address] [place] [address] 11/02/2017 13:28:10 11/02/2017 14:55:23 Anxiety 73101701 F41.9 Depressive disorder 3548 9007 F32.9 Abnormal g rief reaction 255729823 F43.20 [id number] Serene Rodriguez [address] [place] [address] 01/08/2018 10:39:32 01/08/2018 11:27:49 Depressive disorder 05700474 F32.9 Anxiety 00705911 F41.9 Vertigo 548729864 R42 Upper resp iratory infection 07646056 J06.9 [id number] Serene Rodriguez [address] clar[place]. [place] [address] 05/15/2018 11:17:50 05/15/2018 12:28:29 Sudden visual loss 91031151 H53.131 Headache 32079045 R51 Dizziness 601062000 R42 [id number] Serene Rodriguez [address] clarice Hernandez. [place] [address] 06/07/2018 15:41:29 06/12/2018 12:06:37 Fever 481939392 R50.9 Chronic ob structive pulmonary disease 36675462 J44.9 Acute exac erbation of chronic obstructive pulmonary disease 861672147 J44.1 [id number] Serene Rodriguez[address] [place] [address] 03/11/2019 11:24:54 03/11/2019 12:15:43 Administration of influenza vaccine 85240087 Z23 Acute exac erbation of chronic obstructive pulmonary disease 049083656 J44.1 Chronic ob structive pulmonary disease 88141810 J44.9 Fever 861881385 R50.9 Smoker 32468873 F17.200 Recent weight loss 31052 7000 R63.4 Influenza 7153304 J11.1 [id number] Irineo Burrows MD [address] [place] [address] 05/17/2019 13:39:14 05/17/2019 14:20:42 Cough 56957430 R05 Otitis media 24203535 H6 6.91 Chronic ob structive pulmonary disease 41027152 J44.9 [id number] Serene Rodriguez [address] [place] [address] 06/25/2019 13:52:15 06/25/2019 15:00:39 Chronic obstructive pulmonary disease 70743685 J44.9 Chronic depression 68042 000 F34.1 Pruritic rash 27730116 L 28.2 Insomnia 747907689 G47.0 0 [id number] Serene Rodriguez [address] [place] [address] 09/27/2019 15:44:21 09/27/2019 16:43:38 Body mass index 25-29 - overweight 936335572 Z68.27 Ankle pain 593353228 M25 .572 Eruption 273076470 R21 Vitamin D deficiency 347 10215 E55.9 [id number] Sereneyaakov Rodriguez[address] [place] [address] 04/17/2020 14:25:04 04/17/2020 15:14:50 Viral screening 168432053 Z11.59 Hypokalemia 38974173 E87 .6 Anxiety 58294381 F41.9 [id number] Sereneyaakov Rodriguez [address] [place] [address] 08/18/2020 11:28:53 08/18/2020 12:22:27 Abdominal pain 37821874 R10.9 Benign hypertension 1072 5009 I10 stable Chronic ob structive pulmonary disease 90177728 J44.9 stable Chronic depression 10630 0009 F34.1 stable Smoker 18570409 F17.200 pt does not wish to quit at this time Chronic back pain 684493 002 G89.29 [id number] Serene Jennifer [address] [place] [address] 09/03/2020 15:58:48 09/03/2020 16:32:49 Chronic back pain 875295427 G89.29 Benign hypertension 1072 5009 I10 stable Chronic depression 54553 0009 F34.1 stable Chronic ob structive pulmonary disease 13392403 J44.9 stable Abdominal pain 46922366 R10.9 Gastroesop hageal reflux disease 995738427 K21.9 [id number] Kristin Alvares [address] [place] [address] 03/03/2021 08:38:33 03/03/2021 09:22:57 Spasm of back muscles 113015051 M62.546 [id number] Herrera Barrera DO [address] [place] [address] 04/19/2021 15:34:19 04/19/2021 16:18:50 Cough 48315784 R05.9 COVID-19 148427622 U07.1 [id number] Alyssa Olson [address] [place] [address] 12/15/2021 10:17:43 12/15/2021 11:32:18 Body mass index 30+ - obesity 183877439 Z68.35 Obesity 935857488 E66.3 Screening for malignant neoplasm of colon 985363440 Z12.11 Arthritis of right knee joint 1965402212 222402 M13.860 [id number] Alyssa Olson [address] [place] [address] 12/30/2021 14:23:59 12/30/2021 15:18:13 Viral screening 186115279 Z11.52 Positive for COVID, Negative for Flu A&B per rapid testing [id number] Alyssa Olson [address] [place] [address] 01/21/2022 15:36:50 01/21/2022 16:10:45 Pain of right knee joint 0496538466 97562 M25.273 [id number] Rafael Whatley MD [address] [place] [address] 03/11/2022 12:31:18 03/11/2022 13:54:21 Body mass index 30+ - obesity 588396156 Z68.36 Pain of ri ght knee joint 7025462546 68761 M25.743 [id number] Rafael Whatley MD [address] [place] [address] 04/18/2022 15:16:44 04/18/2022 17:00:37 Spasm 93122248 R25.2 Pt will use OTC Mg supplement s, as well [id number] Rafael Whatley MD [address] [place] [address] 05/02/2022 10:42:54 05/02/2022 11:30:27 Arthritis of right knee joint 2250620739 086171 M13.861 Body mass index 30+ - obesity 797635841 Z68.36 Obesity 380014352 E66.9 Spasm of back muscles 20 5226421 M62.830 resolved, check K+ and Mg2+ at next appt [id number] Rafael Whatley MD [address] [place] [address] 05/30/2022 10:46:54 05/30/2022 12:56:36 Arthritis of right knee joint 2426545747 849343 M13.861 very good resolution with injection and weight loss Body mass index 30+ - obesity 758609071 Z68.36 Pt actively working on weight loss, [facility] [id number] Rafael Whatley MD [address] [place] [address] 08/19/2022 08:06:44 08/19/2022 08:50:10 Arthritis of right knee joint 8718714267 465148 M13.861 very good resolution with injection and weight loss [id number] Rafael Whatley MD [address] [place] [address] 11/07/2022 15:29:14 11/07/2022 16:50:47 Arthritis of right knee joint 6302785045 944959 M13.861 Pt tolerated injection well Bilateral plantar fasciitis 0020939648 6840850 M72.2 Pt trying cold rolls for now [id number] Rafael Whatley MD [address] [place] [address] 01/06/2023 14:11:43 01/06/2023 15:04:28 Pain of right knee joint 4477538249 54339 M25.689 [id number] Rafael Whatley MD [address] [place] [address] 02/03/2023 10:49:24 02/03/2023 12:46:21 Screening for malignant neoplasm of colon 473918988 Z12.11 pt has cologuard box encouraged to use Screening for malignant neoplasm of respiratory tract 671770772 Z12.2 pt declines Nicotine d ependence with current use 029811953 F17.210 Current tobacco user Former hea vy tobacco smoker 5222458147 95820 Z87.891 Former tobacco user Body mass index 30+ - obesity 859433364 Z68.36 Pt actively working on weight loss, encouragem ent provided Obesity 244152700 E66.9 Pain of ri ght knee joint 7279792502 53719 M25.440 [id number] Rafael Whatley MD [address] [place] [address] 02/27/2023 15:31:55 02/27/2023 16:10:29 Dysfunction of bilateral eustachian tubes 0554526353 286471 H69.93 Arthritis of right knee joint 4760963564 351500 M13.597 [id number] Rafael Whatley MD [address] [place] [address] 04/11/2023 10:34:07 04/11/2023 11:39:51 Arthritis of right knee joint 7152027932 697208 M13.861 Cellulitis of breast 758 40425 N61.0 [id number] Rafael Whatley MD [address] [place] [address] 06/13/2023 09:10:57 06/13/2023 09:29:16 Arthritis of right knee joint 1029410999 557383 M13.861 Body mass index 30+ - obesity 888064430 Z68.38 Pt actively working on weight loss, encouragem ent provided Obesity 497930873 E66.9 Tobacco user 010309073 Z 72.0 [id number] Rafael Whatley MD [place] [address] [place] [place] [address] 07/18/2023 09:32:37 07/18/2023 10:23:27 Adult health examination 232170427 Z00.00 Depression screening 171 908347 Z13.31 A depression screening was completed via a standardiz ed screening tool. 5 minutes were spent discussing depression screening results and risk factors. Examinatio n of blood pressure 869290131 Z01.30 Diet education 09139297 Z71.3 Counseling 037548710 Z71 .82 Exercise counseling . Patient encouraged to exercise 30 minutes 5 days a week. At [facility] ed risk for falls 616964703 Z91.81 STEADI FAST screening score of _5____. Advance care planning 71 0903024 Z71.89 Body mass index 30+ - obesity 759125688 Z68.39 Pt actively working on weight loss, encouragem ent provided Obesity 561685340 E66.9 Screening mammography 24 257622 Z12.31 Hyperlipid emia screening 356673022 Z13.220 Endocrine/ metabolic screening 118809599 Z13.228 HIV screening 450528645 Z11.4 Screening for malignant neoplasm of colon 348942141 Z12.11 Pain of ri ght knee joint 1813041323 38613 M25.561 Arthritis of right knee joint 3414151724 882539 M13.055 [id number] Rafael Whatley MD [place] [address] [place] [address] 07/21/2023 13:25:33 07/21/2023 14:20:12 Vitamin D deficiency 64835398 E55.9 Hyperlipidemia 26150254 E78.5 continue current management [id number] Rafael Whatley MD [place] [address] [place] [address] 09/08/2023 09:04:45 09/08/2023 10:25:55 Arthritis of right knee joint 4066518070 726789 M13.861 responded well to injection [id number] Rafael Whatley MD [address] [place] [address] 10/19/2023 10:32:23 10/19/2023 11:37:18 Arthritis of right knee joint 8288442294 562153 M13.861 responded well to injection Vitamin D deficiency 347 21841 E55.9 refill requested [id number] Rafael Whatley MD [address] [place] [address] 12/01/2023 12:59:50 12/01/2023 14:43:44 Arthritis of right knee joint 5850604354 028770 M13.861 following with Ortho, procedure planned in 3 weeks Chronic ob structive pulmonary disease 84253107 J44.9 refill requested Body mass index 30+ - obesity 355470966 Z68.37 Pt actively working on weight loss, encouragem ent provided Obesity 274750744 E66.9 [id number] Rafael Whatley MD [address] [place] [address] 12/18/2023 13:37:27 12/18/2023 15:29:35 Body mass index 30+ - obesity 523014071 Z68.37 Pt actively working on weight loss, encouragem ent provided Obesity 683250276 E66.9 Pain of ri ght knee joint 4608959747 30493 M25.593 [id number] Rafael Whatley MD [address] [place] [address] 01/11/2024 11:35:33 01/11/2024 12:08:24 Pain of right knee joint 0786836652 56769 M25.925 [id number] Rafael Whatley MD [address] [place] [address] 01/25/2024 08:36:59 01/25/2024 10:03:25 Pain of right knee joint 4682439327 35901 M25.546 [id number] Rafael Whatley MD [address] [place] [address] 03/05/2024 10:16:43 03/05/2024 10:47:15 Pain of right knee joint 5770254479 76753 M25.500 [id number] Rafael Whatley MD [address] [place] [address] 04/09/2024 11:21:19 04/09/2024 12:51:37 Pain of right knee joint 1563180609 35958 M25.326 [id number] Rafael Whatley MD [address] [place] [address] 05/24/2024 11:33:33 05/24/2024 12:59:54 Pain of right knee joint 8050551420 79134 M25.561 Arthritis of right knee joint 2699650605 631318 M13.861 following with Ortho, [id number] Rafael Whatley MD [address] [place] [address] 06/17/2024 13:05:40 06/17/2024 14:52:35 Upper respiratory infection 67432451 J06.9 [id number] Juwan Gomes PA-C [address] [place] [address] 07/10/2024 10:27:06 07/10/2024 11:27:34 Chronic obstructive pulmonary disease 08935625 J44.9 Essential hypertension 74454299 I10 Hyperlipidemia 46309571 E78.5 Chronic depression 57121 0009 F32.A Peripheral edema 8369992 00 R60.9 Endocrine/ metabolic screening 569245667 Z13.228 Pain of ri ght knee joint 3565430038 34678 M25.561 Stented co ronary artery 259036873 Z95.5 [id number] Juwan Gomes PA-C [address] [address] 07/25/2024 12:45:39 07/25/2024 15:10:04 Prediabetes 526998150 R73.03 240972 Making dietary changes but also preferring to use medication . Insomnia 197325341 G47.0 9 18668 Cautioned risk of increased SI with antidepres pramod medication . Spasm 95961077 R25.2 84705 Cautioned side effect of sedation; do not take with other sedatives. Do not drink alcohol with medication . Do not operate machinery or drive after taking medication . [id number] Juwan Gomes PA-C [facility] [address] 09/19/2024 09:34:20 09/19/2024 10:46:56 Benign hypertension 83436279 I10 Check BP at home. Try to [...] present. Tobacco de pendence caused by cigarettes 9335416865 8525167 F17.617 5866891 Cramp in lower limb 3099 15844 R25.2 939684 Cautioned side effect of sedation; do not take with other sedatives. Do not drink alcohol with medication . Do not operate machinery or drive after taking medication . Body mass index 30+ - obesity 539478656 E66.9 6633097 Encouraged healthy diet and food journaling , open to [employer]. encouraged use of apps such as:[employer] Diet CoachLose It!In addition to paper and pen food journal. Calorie deficit necessary for weight loss. Pay attention to food labels, keep track of calorie intake. Attempt to increase exercise. Acute exac erbation of chronic obstructive pulmonary disease 465718240 J44.1 717718 Discussed supportive care with patient. Advised to [...] signs and sxs to seek further treatment. [id number] REGINE Torres [facility] [address] [facility] [place] [address] 10/21/2024 14:30:48 10/21/2024 16:07:12 Acute exacerbation of chronic obstructive pulmonary disease 457147205 J44.1 002642 Discussed supportive care with patient. Advised to [...] Name 02/03/2023 1 PASSPORT HE[employer] PLAN BY [employer] (MEDICARE REPLACEMENT/ ADVANTAGE - HMO) Anette Ng [id number] Anette Gomes 04/11/2023 1 PASSPORT HEALTH PLAN BY [employer] (MEDICARE REPLACEMENT/ ADVANTAGE - HMO) Anette Gomes [id number] Anette Gomes 02/03/2023 NGS NATIONAL - MEDICARE A-OK - [facility] (MEDICARE) Anette Gomes [id number] Anette Gomes 09/17/2022 1 PASSPORT BY [employer] - DUAL ELIGIBLE (MEDICARE REPLACEMENT/ ADVANTAGE - HMO) Anette Ng [id number] Anette Gomes 11/07/2022 2 PASSPORT BY [employer] - DUAL ELIGIBLE (MEDICARE REPLACEMENT/ ADVANTAGE - HMO) Anette Gomes [id number] Anette Gomes 08/19/2022 1 PASSPORT HEALTH PLAN BY [employer] (MEDICARE REPLACEMENT/ ADVANTAGE - HMO) Anette Ng [id number] Anette Stringer Gomes 08/19/2022 2 PASSPORT HEALTH PLAN BY [employer] (MEDICARE REPLACEMENT/ ADVANTAGE - HMO) Anette Ng [id number] Anette Stringer Gomes 08/19/2022 2 PASSPORT BY [employer] - DUAL ELIGIBLE (MEDICARE REPLACEMENT/ ADVANTAGE - HMO) Anette Ng [id number] Anette Stringer Gomes 08/19/2022 1 PASSPORT BY [employer] (HMO) Anette Ng [id number] Anette Gomes 04/19/2021 [place] [facility] WRAP BILLING (MEDICAID) [id number] Anette Ng [id number] Anette Gomes 06/24/2021 [place] [facility] Anette Ng [id number] Anette Juradosey 06/24/2021 2 [place] Anette Ng [id number] Anette Stringer Gomes 08/19/2022 1 [place]MED[place]ACEMENT HMO[place] [id number] Anette Ng [id number] Anette Stringer Gomes 09/17/2022 2 [place] Anette Ng [id number] Anette Stringer Gomes 08/03/2021 2 [facility] [place] - [place] Anette Ng [id number] Anette Stringer Gomes 04/19/2021 1 [employer] [place] (MEDICA[place] H[place]) [id number] Anette Ng [id number] Anette Stringer Gomes 06/07/2018 1 *SELF PAY* Co david Stringer Gomes 04/19/2021 1 [place] Anette Ng [id number] Anette Stringer Gomes 06/06/2016 1 UNSPECIFIED REMIT PAYOR Anette Gomes 03/26/2025 1 [place] [id number] Anette Stringer Gomes [id number] Anette Juradosey 08/19/2022 2 PASSPORT BY [employer] (MEDICAID REPLACEMENT - HMO) Anette Ng [id number] Anette Gomes 04/19/2021 [place] [facility] [place] [id number] Anette Ng [id number] Anette Gomes 04/19/2021 [place] [facility] [place] [id number] Anette Stringer Ng [id number] Anette Gomes Notes Date Note Type Note [...] contacts. Rafael Whatley MD [address], [place], [address], [employer] [facility] 06/17/2024 16:16:04 07/10/2024 text/html Patient presents to office requesting refills on Anoro inhaler. Patient has hx of COPD. Patient would also like to discuss diuretic, states lasix has caused severe muscle pain. Recent visit with Dr. Ayala, following [id number]. Has been having increased right knee pain, benjamín had repeat knee surgery with Pal. Pt denies chest pain, SOA at rest, difficulty eating or drinking, changes in bathroom habits, syncope/presyncope, or any other concerns. Juwan Gomes PA-C [address], [place], [address], [place] [facility] 07/10/2024 11:26:35 07/25/2024 text/html [...] pain. Recent visit with Dr. Ayala, following R8qeezbf. Has been having increased right knee pain, december had repeat knee surgery with Pal. Pt denies chest pain, SOA at rest, difficulty eating or drinking, changes in bathroom habits, syncope/presyncope, or any other concerns. Juwan Gomes PA-C [facility] [address], [place], [address], [place] [facility] 07/25/2024 21:02:26 09/19/2024 text/html Patient [...] and without concerns. Juwan Gomes PA-C [address], [place], [address], [facility] 09/30/2024 13:13:07 10/21/2024 text/html 64yoF [...] concerns. Juwan Gomes PA-C [address], [place], [address], [facility] 10/22/2024 09:48:16 OBGyn Episode No OBEpisode recorded.
--- NOTE | 2025-03-27 07:30 | NM_ITS ---
APPROVED REPORT Exam: Nuclear Stress Test Indication: cad, htn, tob use, fm hx, c.p., ,sob, fatigue Patient Location: Outpatient Stress Tech: Idalmis Awad ME Tech:JUAN Pal RT(R)(N) Ht: 5 ft 2 in Wt: 240 lbs Bra Size: dd HR: 81 bpm BP: 140/82 mmHg BSA: 2.07 m2 TID: 1.03 BMI: 43.8 History: cad, htn, tob use, fm hx, c.p., ,sob, fatigue Procedure: Patient received 0.4 mg of intravenous Lexiscan, resting heart rate 81 bpm, resting blood pressure 140/82 mmHg, with Lexiscan maximum heart rate achieved was 94 bpm which is % of the maximum predicted heart rate and blood pressure was 148/75 mmHg. With Lexiscan, patient denied any complaint of chest pain. pt cannot lay on abdomen for prone images. Cardiac Stress and Resting SPECT Images: Cardiac Stress and Resting SPECT images were obtained using technetium 99m Myoview 32.8 mCi stress and 10.30 mCi at rest. The patient could not lie on her abdomen. Therefore, prone stress imaging could not be performed. This may affect the diagnostic interpretation of the study findings. Resting and stress imaging in supine and prone positions demonstrate no evidence of fixed or reversible perfusion defects. Gated imaging demonstrates normal global LV systolic function. LVEF is calculated at > 75%. Conclusion: No evidence of fixed or reversible perfusion defects. Gated imaging demonstrates normal global LV systolic function. LVEF is calculated at > 75%. Electronically signed by : Cesia Quijano MD 03/28/2025 13:31:19
[2025-03-27 08:50] VITALS: BP 140/82; PULSE 75; RESP 16
[2025-03-27 08:57] VITALS: BMI 41.0
[2025-03-27] MEDS: ALBUTEROL 0.083% 2.5 MG/3 ML NEB IH (09:01)
[2025-03-27] MEDS: ISOTOPE MYOVIEW (PER STUDY) 1 DOSE IV (10:08)
[2025-03-27] MEDS: SODIUM CHLORIDE 0.9% 10ML SYR (RAD ONLY) 10 ML IV ×2 (10:08)
== END 2025-03-27 23:59 | disposition home or self-care (01) ==
LOC: RAD 07:10
PROVIDERS: PCP Nurse Practitioner Family; Visit Provider Physician Assistant
DX: I25.118 Atherosclerotic heart disease of native coronary artery with other forms of angina pectoris (principal); I10 Essential (primary) hypertension; Z72.0 Tobacco use
CPT/HCPCS: 78452; 93017; 93018; A9502; J2785